=== PATIENT | female | born 1940 | race Caucasian/White ===

== ENCOUNTER 2020-04-16 12:29 | Outpatient (CLI) | payer MEDICARE, SELFPAY ==
--- NOTE | ~2020-04-16 | XR_ITS ---
EXAMINATION: XR abdomen obstructive series DATE: 04/16/2020 12:59 INDICATION: Abdominal pain. History of obstruction. TECHNIQUE: Supine and upright views of the abdomen. FINDINGS: Comparison to 12/27/2018 The visualized lung parenchyma is normal.. There are dilated small bowel loops measuring up to 5 cm w ith decompressed colon. There are air-fluid levels in the small bowel. There are extensive atheroscle rotic changes. There is no free air. IMPRESSION: 1. Small bowel obstruction. Reviewed, dictated and finalized at location A. IMPRESSION: 1. Small bowel obstruction.
[2020-04-16 12:44] LABS: Basophils Absolute Auto 0.02 K/mm3 (0.00-0.10); Basophils Percent Auto 0.3 % (0.0-1.0); Eosinophils Absolute Auto 0.01 K/mm3 (0.02-0.50); Eosinophils Percent Auto 0.2 % (1.0-6.0); Hematocrit 43.3 % (35.0-42.0); Hemoglobin 14.6 g/dL (11.7-13.8); Immature Granulocyte Absolute 0.02 K/mm3 (0.00-0.00); Immature Granulocyte Percent A 0.3 % (0.0-0.0); Lymphocytes Absolute Auto 0.53 K/mm3 (1.10-4.50); Lymphocytes Percent Auto 8.6 % (18.0-42.0); Mean Corpuscular HGB Conc 33.7 g/dL (32.0-36.0); Mean Corpuscular Hemoglobin 34.4 pg (27.0-31.0); Mean Corpuscular Volume 102.1 fL (78.0-102.0); Mean Platelet Volume 10.3 fl (9.2-11.8); Monocytes Absolute Auto 0.19 K/mm3 (0.10-0.90); Monocytes Percent Auto 3.1 % (2.0-11.0); Neutrophils Absolute Auto 5.4 K/mm3 (1.7-7.2); Neutrophils Percent Auto 87.5 % (50.0-70.0); Platelet Count Result 250 K/mm3 (150-420); Red Blood Count 4.24 M/mm3 (4.20-5.40); Red Cell Distribution Width 12.7 % (11.6-14.4); White Blood Count 6.2 K/mm3 (4.8-10.8)
[2020-04-16 12:49] LABS: Add Urine Microscopic? YES; Appearance Urine Cloudy (Clear); Bilirubin Urine Negative (Negative); Blood Urine Negative (Negative); Color Urine Yellow (Yellow); Glucose Urine UA Negative (Negative); Ketones Urine Trace (Negative); Leukocyte Esterase Ur Negative LEU/UL (Negative); Nitrate Urine Negative (Negative); Protein Urine Negative (Negative); Specific Grav Ur 1.015 (1.010-1.020); Urobilinogen Urine 0.2 mg/dL (0.2-1.0)
[2020-04-16 12:55] LABS: Amorphous Sediment Urine Moderate; Bacteria Urine 3+ /hpf; RBC Urine 0-2 /hpf (0-2); Squamous Epithelial Cell Urine Few /hpf (Few); WBC Urine 0-3 /hpf (0-3)
[2020-04-16 13:19] LABS: Alanine Aminotransferase 18 U/L (14-59); Albumin Level 4.3 g/dL (3.4-5.0); Alkaline Phosphatase 97 U/L (46-116); Amylase 83 U/L (25-115); Anion Gap 10.2 mmol/L (7-16); Aspartate Amino Transferase 22 U/L (15-37); Bilirubin,Total 0.7 mg/dL (0.00-1.00); Blood Urea Nitrogen 20 mg/dL (7-18); Calcium 9.5 mg/dL (8.5-10.1); Carbon Dioxide 32 mmol/L (21-32); Chloride 96 mmol/L (98-108); Creatine Kinase 134 U/L (26-192); Estimated Glomerular Filt Rate 47; Glucose 131 mg/dL (70-99); Lipase 121 U/L (73-393); Osmolality Calculated 282 mOsm/kg (285-295); Potassium 4.2 mmol/L (3.5-5.1); Sodium 134 mmol/L (136-145); Total Protein 7.7 g/dL (6.4-8.2)
[2020-04-16 13:21] LABS: Troponin I < 0.02 ng/mL (0.00-0.056)
== END 2020-04-16 12:30 | disposition home or self-care (01) ==
PROVIDERS: PCP Internal Medicine; Visit Provider Internal Medicine
DX: R10.9 Unspecified abdominal pain (principal); I25.10 Atherosclerotic heart disease of native coronary artery without angina pectoris
CPT/HCPCS: 36415; 74019; 80053; 81001; 82150; 82550; 82553; 83690; 84484; 85025

== ENCOUNTER 2020-04-20 13:10 | Outpatient (CLI) | payer MEDICARE, SELFPAY ==
--- NOTE | ~2020-04-20 | XR_ITS ---
EXAMINATION: XR abdomen obstructive series DATE: 04/20/2020 13:36 INDICATION: Partial small bowel obstruction. TECHNIQUE: Upright and supine views of the abdomen were obtained. COMPARISON: 04/16/2020 FINDINGS: There are small bowel loops in the right abdomen which demonstrate air-fluid levels but hav e returned to normal in caliber. No dilated loops of bowel are evident. There is no free intraperiton eal gas. A large volume of stool is seen in the transverse and proximal descending colon. Calcified a therosclerosis is noted. The visualized lung bases are clear. 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 Phleboliths are seen in the pelvis. IMPRESSION: 1. No persistently dilated loops of bowel identified. Reviewed, dictated and finalized at location B.
== END 2020-04-20 13:11 | disposition home or self-care (01) ==
LOC: CHSIMG 13:13
PROVIDERS: PCP Internal Medicine; Visit Provider Internal Medicine
DX: K56.600 Partial intestinal obstruction, unspecified as to cause (principal); Z51.89 Encounter for other specified aftercare
CPT/HCPCS: 74019

== ENCOUNTER 2021-05-11 19:32 | Emergency (ER) | payer MEDICARE, SELFPAY | END 2021-05-11 19:35 | disposition left against medical advice (07) | PROVIDERS: Emergency Provider Emergency Medicine; PCP Internal Medicine | DX: Z53.8 Procedure and treatment not carried out for other reasons (principal) | CPT/HCPCS: 99199 ==

== ENCOUNTER 2021-08-04 09:19 | Emergency (ER) | payer MEDICARE, SELFPAY ==
--- NOTE | ~2021-08-04 | CT_ITS ---
EXAMINATION: CT brain wo con INDICATION: Transient alteration of awareness COMPARISON: None TECHNIQUE: Standard unenhanced head CT. The dose-length product (DLP) was 605.33 mGy-cm. The mA was a djusted according to patient size. Iterative reconstruction technique was employed. FINDINGS: There is no acute intraparenchymal hemorrhage. No evidence of mass lesion. No evidence of a cute infarction. There is mild periventricular and subcortical hypodensity probably related to small vessel ischemic disease. There is mild prominence of the sulci and ventricles related to cerebral atr ophy. Intracranial calcified cerebral atherosclerosis is noted. There are no extra-axial collections. There is no mass effect or midline shift. Changes in the left lobe are likely from ocular lens surge ry. Hyperdensity in the right globe is consistent with injected material. There is mild mucosal thick ening of the paranasal sinuses. IMPRESSION: 1. No acute intracranial abnormality. 2. Age related findings. Reviewed, dictated and finalized at location A. ELET MAKER NOVELTY
--- NOTE | ~2021-08-04 | CT_ITS ---
EXAMINATION: CTA chest PE protocol DATE: 08/04/2021 12:04 INDICATION: Transient alteration of awareness TECHNIQUE: Computed tomography angiography (CTA) of the chest was performed with 100 mL Omnipaque-350 intravenous contrast timed to evaluate the pulmonary arteries. Coronal maximum intensity projection 3D-reconstructions were created by the technologist. The dose-length product (DLP) was 292.73 mGy-cm. Automated exposure control and iterative reconstruction technique were employed. COMPARISON: 12/15/2018 FINDINGS: The pulmonary arteries are well-opacified. No pulmonary embolism is identified. There is mi ld dependent atelectasis. No pleural effusion or pneumothorax is identified. There is fusiform enlarg ement of the ascending aorta which measures 4.2 cm at the level of the main pulmonary artery. Cardiom egaly is noted. There are no pathologically enlarged thoracic lymph nodes. There is moderate thoracic spondylosis. There are changes of coronary artery bypass grafting. A stable 1.4 cm left adrenal mas s is consistent with an adenoma. IMPRESSION: 1. No pulmonary embolism or acute cardiopulmonary abnormality. 2. Cardiomegaly. 3. Fusiform enlargement of the ascending aorta measuring up to 4.2 cm. Reviewed, dictated and finalized at location A. NCT BUSINESS INSTRUCTOR
--- NOTE | ~2021-08-04 | CT_ITS ---
EXAMINATION: CT cervical spine wo con DATE: 08/04/2021 10:01 INDICATION: Neck pain TECHNIQUE: Computed tomography (CT) of the cervical spine was performed without intravenous contrast. The dose-length product (DLP) was 222.37 mGy-cm. Automated exposure control and iterative reconstruc tion technique were employed. COMPARISON: 03/27/2015 FINDINGS: There are changes of posterior fusion from C1 through C5 and anterior fusion at C6-7. There is a chronic C3 fracture. No acute fracture is identified. The odontoid is intact. The prevertebral soft tissues are normal. IMPRESSION: 1. Surgical changes and old C3 fracture without acute findings. Reviewed, dictated and finalized at location A. INUITY MANAGER
--- NOTE | ~2021-08-04 | XR_ITS ---
EXAMINATION: XR chest 1V portable INDICATION: Transient alteration of awareness TECHNIQUE: Portable AP chest at 0938 hours COMPARISON: 12/18/2018 FINDINGS: Cardiomegaly is noted. Median sternotomy wires and mediastinal surgical clips are seen, lik nannette from prior coronary artery bypass grafting. The lungs are free of acute opacities. There is no pl eural effusion or pneumothorax. There are partially imaged surgical changes in the cervical spine. IMPRESSION: 1. No acute cardiopulmonary abnormality. Reviewed, dictated and finalized at location A. ENT FINANCE ADVISOR
[2021-08-04 09:24] VITALS: BP 159/87; PULSE 48; RESP 16
[2021-08-04 09:27] VITALS: BP 159/87; PULSE 52; RESP 18; TEMP 36.4; O2SAT 98
[2021-08-04 09:31] VITALS: BP 169/83; PULSE 48; RESP 16
--- NOTE | 2021-08-04 09:31 | ECG_ITS ---
Measurements Intervals [place] Rate: 47 P: 0 TX: 151 QRS: 5 QRSD: 62 T: 56 QT: 389 QTc: 347 Interpretive Statements SINUS BRADYCARDIA WITH MARKED SINUS ARRHYTHMIA ANTEROSEPTAL INFARCT, AGE INDETERMINATE BASELINE ARTIFACT- I, II, III, AVR, AVL, AVF ABNORMAL ECG Electronically Signed On 08-05-2021 8:42:04 LEAD FIRE PROTECTION ENGINEER by Sathish Hawthorne D.O.
[2021-08-04] MEDS: SODIUM CHLORIDE 0.9% IV 500 ML 999 ML IV CONT (09:33)
[2021-08-04 09:56] LABS: Basophils Percent Auto 0.3 % (0.2-1.2); Eosinophils Percent Auto 0.3 % (0-4.4); Hemoglobin 13.6 g/dL (12.0-15.0); Immature Granulocyte Absolute 0.02 K/mm3 (0.00-0.031); Immature Granulocyte Percent A 0.3 % (0-0.5); Lymphocytes Absolute Auto 0.78 K/mm3 (0.9-3.2); Lymphocytes Percent Auto 12.2 % (18.3-44.2); Mean Corpuscular HGB Conc 32.4 g/dl (32-36); Mean Corpuscular Hemoglobin 34.2 pg (26-34); Mean Corpuscular Volume 105.5 fl (80-100); Mean Platelet Volume 10.9 fl (7.4-10.4); Monocytes Absolute Auto 0.6 K/mm3 (0.1-0.6); Monocytes Percent Auto 9.3 % (2.6-8.5); Neutrophils Absolute Auto 4.9 K/mm3 (1.3-6.7); Neutrophils Percent Auto 77.6 % (45.5-73.1); Platelet Count Result 197 k/mm3 (150-375); Red Blood Count 3.98 M/mm3 (4.2-5.4); Red Cell Distribution Width 13.4 % (11.5-14.5); White Blood Count 6.4 K/mm3 (4.5-10.0)
[2021-08-04 10:06] LABS: Anion Gap 5 mmol/L (8-16); Blood Urea Nitrogen 21 mg/dL (7-17); Calcium 9.9 mg/dL (8.4-10.2); Carbon Dioxide 32 mmol/L (22-30); Chloride 102 mmol/L (98-107); Estimated CRCL calculation 48 ml/min; Estimated Glomerular Filt Rate > 60; Glucose 94 mg/dL (65-110); Potassium 4.3 mmol/L (3.4-5.0); Sodium 139 mmol/L (137-145)
[2021-08-04 10:09] LABS: INR 0.9; Prothrombin Time 12.5 Seconds (11.1-14.7)
[2021-08-04 10:10] LABS: Partial Thromboplastin Time 26.8 SECONDS (22.3-36.8)
[2021-08-04 10:52] LABS: Add Urine Microscopic? YES; Appearance Urine Cloudy (Clear); Bilirubin Urine Negative (Negative); Blood Urine Negative (Negative); Color Urine Straw (Yellow); Glucose Urine UA Negative (Negative); Ketones Urine Negative (Negative); Leukocyte Esterase Ur Trace LEU/UL (Negative); Mucus Urine Rare /lpf; Nitrate Urine Negative (Negative); Protein Urine Negative (Negative); RBC Urine 0-2 /hpf (0-2); Specific Grav Ur 1.009 (1.001-1.035); Squamous Epithelial Cell Urine Few /hpf (Few); Urobilinogen Urine Negative mg/dL (<2.0)
--- NOTE | 2021-08-04 10:55 | ED.SYNCOPE ---
HPI - Syncope General Chief Complaint: Syncope Stated Complaint: SYNCOPE, ARPITA Time Seen by Provider: 08/04/21 09:47 Source: patient History of Present Illness HPI narrative: Patient presents with syncope. Patient ports she was sitting down had an episode of nausea got up to get it you to drink and then felt lightheaded and fell to the ground. She did report having recent ocular procedure and is on Tylenol with codeine. She not take the medication this morning. Reports on arrival to the ER she is feeling much improved and nothing is bothering her. She had a chest pain or shortness of breath prior to the event. Denies any current chest pain dizziness nausea vomiting. Related Data Home Medications Medication Instructions Recorded Confirmed aspirin 81 mg PO DAILY 08/04/21 atorvastatin 40 mg PO DAILY 08/04/21 carvedilol 3.125 mg PO BID 08/04/21 cholecalciferol (vitamin D3) 25 mcg PO DAILY 08/04/21 [Vitamin D3] clopidogrel 75 mg PO BID 08/04/21 famotidine 20 mg PO BID 08/04/21 levothyroxine [L-Thyroxine] 75 mcg PO DAILY 08/04/21 pantoprazole 40 mg PO QAM 08/04/21 polyethylene glycol 3350 [Miralax] 17 g PO DAILY 08/04/21 spironolactone 25 mg PO DAILY 08/04/21 tramadol 50 mg PO PRN 08/04/21 vitamin B complex [B 1 tablet PO DAILY 08/04/21 Complex-Vitamin B12] Allergies Allergy/AdvReac Type Severity Reaction Status Date / Time No Known Allergies Allergy Unverified 08/04/21 09:32 Review of Systems Review of Systems: CONSTITUTIONAL: Denies fever, chills, or sweats. EYES: Denies visual changes, redness, or discharge. ENT: Denies rhinorrhea, congestion, sore throat, or otalgia. CARDIOVASCULAR: Denies chest pain, palpitations, or edema. RESPIRATORY: Denies cough or dyspnea. GASTROINTESTINAL: Denies abdominal pain, nausea, vomiting, or diarrhea. GENITOURINARY: Denies dysuria or hematuria. SKIN: Denies rash or itching. MUSCULOSKELETAL: Denies back pain, joint pain, or myalgia. NEUROLOGIC: Denies headache, numbness, dizziness, or weakness. PSYCHIATRIC: Denies anxiety or depression. All systems reviewed & are unremarkable except as noted in HPI and below PMFSH Past Medical History Medical History (Updated 08/04/21 @ 13:14 by Prieto Mcintosh MD) Hypertension Family History Family History Father Hypertension Mother Hypertension Family history of malignant neoplasm of brain Sibling Family history of malignant neoplasm Social History Social History Smoking status: Former smoker Smoking end date: 09/21/11 Exam Narrative: GENERAL: Well-appearing, well-nourished, and in no acute distress. HEAD: Normocephalic, atraumatic. EYES: PERRLA and EOMI. ENT: Nares clear, no rhinorrhea or epistaxis. Mucous membranes moist. NECK: Supple. No masses. No JVD CHEST: Clear to auscultation. No respiratory distress. No wheezes rales or rhonchi HEART: Regular rate and rhythm. No murmur heard. Normal peripheral pulses. ABDOMEN: Soft, nontender, nondistended, normal active bowel sounds. EXTREMITIES: Normal range of motion. No edema. SKIN: Warm, dry, no rash. NEURO: No focal deficits. Alert and oriented x3. PSYCH: Normal mood and affect. Course Reevaluation(s) Reevaluation #1: Patient reports feeling much improved she ambulated without difficulty patient requesting to go home Date: 08/04/21 Time: 13:07 Vital Signs Vital signs: Vital Signs Pulse Rate 48 L 08/04/21 09:24 Respiratory Rate 16 08/04/21 09:24 Blood Pressure 159/87 H 08/04/21 09:24 Temperature 36.4 C L 08/04/21 09:27 Pulse Rate 69 08/04/21 12:30 Respiratory Rate 16 08/04/21 12:30 Blood Pressure 148/58 H 08/04/21 12:30 Pulse Oximetry 98 08/04/21 12:30 MDM - Syncope MDM Narrative Medical decision making narrative: H&P as above, vs initially with bradycardia resolved without intervention, pt looks cli
[2021-08-04 11:18] LABS: Alanine Aminotransferase 14 U/L (4-35); Albumin Level 4.3 g/dL (3.5-5.1); Alkaline Phosphatase 81 U/L (38-126); Aspartate Amino Transferase 23 U/L (14-36); Bilirubin,Total 0.5 mg/dL (0.2-1.3)
[2021-08-04 11:31] LABS: Troponin I < 0.012 ng/mL (0.000-0.034)
[2021-08-04 11:45] VITALS: BP 157/91; PULSE 66; RESP 13
[2021-08-04 11:46] VITALS: PULSE 56
[2021-08-04 12:30] VITALS: BP 148/58; PULSE 69; RESP 16; O2SAT 98
== END 2021-08-04 13:32 | disposition home or self-care (01) ==
PROVIDERS: Emergency Provider Emergency Medicine; PCP Internal Medicine
DX: R55 Syncope and collapse (principal); I10 Essential (primary) hypertension; Z79.82 Long term (current) use of aspirin; Z87.891 Personal history of nicotine dependence; I51.7 Cardiomegaly; R00.1 Bradycardia, unspecified; R94.31 Abnormal electrocardiogram [ECG] [EKG]; W18.39XA Other fall on same level, initial encounter
CPT/HCPCS: 36415; 70450; 71045; 71275; 72125; 80048; 80076; 81001; 83735; 84484; 85025; 85610; 85730; 93005; 96360; 99284; J7040; Q9967

== ENCOUNTER 2022-12-09 10:10 | Outpatient (CLI) | payer MEDICARE, SELFPAY ==
--- NOTE | ~2022-12-09 | CT_ITS ---
EXAMINATION: CTA chest PE protocol DATE: 12/09/2022 12:12 INDICATION: Shortness of breath TECHNIQUE: Computed tomography angiography (CTA) of the chest was performed with 100 mL Omnipaque-350 intravenous contrast timed to evaluate the pulmonary arteries. Coronal maximum intensity projection 3D-reconstructions were created by the technologist. The dose-length product (DLP) was 223.22 mGy-cm. Automated exposure control and iterative reconstruction technique were employed. COMPARISON: 08/04/2020 FINDINGS: The pulmonary arteries are well-opacified. No pulmonary embolism is identified. The lungs a re free of acute opacities. No pleural effusion or pneumothorax. There is subsegmental atelectasis in the lower lobes. A chronic 2 mm nodule of the right lung apex is consistent with old granulomatous d isease. There are changes of coronary artery bypass grafting. Healed left-sided rib fractures are not ed. Stones are present in the gallbladder. There is severe thoracic spondylosis. There are partially imaged changes of anterior fusion in the lower cervical spine. There is severe atherosclerosis of the visualized upper abdomen. IMPRESSION: 1. No pulmonary embolism or acute cardiopulmonary abnormality. Reviewed, dictated and finalized at location L.
--- NOTE | ~2022-12-09 | XR_ITS ---
EXAMINATION: XR chest 2V DATE: 12/09/2022 10:46 INDICATION: Shortness of breath TECHNIQUE: PA and lateral views of the chest are obtained. COMPARISON: 08/04/2021 FINDINGS: The lungs are free of acute opacities. No pleural effusion or pneumothorax. The cardiomedia stinal silhouette is normal. There is moderate thoracic spondylosis. Median sternotomy wires and medi astinal surgical clips are seen, likely from prior coronary artery bypass grafting. Changes of anteri or fusion are noted in the lower cervical spine. IMPRESSION: 1. No acute cardiopulmonary abnormality. Reviewed, dictated and finalized at location L.
[2022-12-09 10:30] LABS: Basophils Absolute Auto 0.03 K/mm3 (0.00-0.10); Basophils Percent Auto 0.5 % (0.0-1.0); Eosinophils Absolute Auto 0.03 K/mm3 (0.02-0.50); Eosinophils Percent Auto 0.5 % (1.0-6.0); Hemoglobin 12.3 g/dL (11.7-13.8); Immature Granulocyte Absolute 0.03 K/mm3 (0.00-0.00); Immature Granulocyte Percent A 0.5 % (0.0-0.0); Lymphocytes Percent Auto 13.4 % (18.0-42.0); Mean Corpuscular HGB Conc 31.5 g/dL (32.0-36.0); Mean Corpuscular Hemoglobin 30.5 pg (27.0-31.0); Mean Corpuscular Volume 96.8 fL (78.0-102.0); Mean Platelet Volume 10.1 fl (9.2-11.8); Monocytes Absolute Auto 0.33 K/mm3 (0.10-0.90); Monocytes Percent Auto 5.5 % (2.0-11.0); Neutrophils Absolute Auto 4.7 K/mm3 (1.7-7.2); Neutrophils Percent Auto 79.6 % (50.0-70.0); Platelet Count Result 298 K/mm3 (150-420); Red Blood Count 4.03 M/mm3 (4.20-5.40); Red Cell Distribution Width 14.9 % (11.6-14.4)
[2022-12-09 10:35] LABS: Appearance Urine Clear (Clear); Bilirubin Urine Negative (Negative); Blood Urine 2+ (Negative); Color Urine Yellow (Yellow); Glucose Urine UA Negative (Negative); Ketones Urine Trace (Negative); Leukocyte Esterase Ur Negative (Negative); Nitrate Urine Negative (Negative); Protein Urine Trace (Negative); Specific Grav Ur 1.015 (1.010-1.020); Urobilinogen Urine 0.2 mg/dL (0.2-1.0)
[2022-12-09 10:41] LABS: Add Urine Microscopic? NO; Bacteria Urine None seen /hpf; RBC Urine 0-2 /hpf (0-2); Squamous Epithelial Cell Urine Occasional /hpf (Few); WBC Urine None seen /hpf (0-3)
[2022-12-09 10:47] LABS: Alanine Aminotransferase 17 U/L (14-59); Albumin Level 3.9 g/dL (3.4-5.0); Alkaline Phosphatase 112 U/L (46-116); Anion Gap 7 mmol/L (8-16); Aspartate Amino Transferase 15 U/L (15-37); Bilirubin,Total 0.5 mg/dL (0.00-1.00); Blood Urea Nitrogen 26 mg/dL (7-18); Calcium 9.9 mg/dL (8.5-10.1); Carbon Dioxide 31 mmol/L (21-32); Chloride 103 mmol/L (98-108); Estimated Glomerular Filt Rate 49; Glucose 120 mg/dL (70-99); Osmolality Calculated 297 mOsm/kg (285-295); Potassium 4.6 mmol/L (3.5-5.1); Sodium 141 mmol/L (136-145); Total Protein 7.7 g/dL (6.4-8.2)
--- NOTE | 2022-12-09 10:53 | ECG_ITS ---
Rate 82 MA 134 QRSd 75 QT 365 QTc 428 --Porter-- P 74 QRS 72 T 68 SINUS RHYTHM FREQUENT ATRIAL PREMATURE COMPLEXES INCOMPLETE RIGHT BUNDLE BRANCH BLOCK ANTERIOR INFARCT, AGE INDETERMINATE BASELINE ARTIFACT- I, II, III, V1 ABNORMAL ECG COMPARED TO ECG 08/04/2021 09:26:59 SINUS RHYTHM NOW PRESENT Electronically Signed On 12-09-2022 11:51:43 CDT by Sathish DE LA CRUZ
[2022-12-09 10:54] LABS: D Dimer 0.81 mg/L (0.19-0.50)
== END 2022-12-09 10:11 | disposition home or self-care (01) ==
PROVIDERS: PCP Internal Medicine; Visit Provider Nurse Practitioner Family
DX: R06.02 Shortness of breath (principal); J06.9 Acute upper respiratory infection, unspecified; I49.9 Cardiac arrhythmia, unspecified; R97.8 Other abnormal tumor markers
CPT/HCPCS: 36415; 71046; 71275; 80053; 81003; 85025; 85380; 87086; 87088; 93005; Q9967

== ENCOUNTER 2023-04-26 08:18 | Emergency (ER) | payer MEDICARE, SELFPAY ==
[2023-04-26] VITALS (32 sets, daily range): BP systolic 116–207; BP diastolic 64–119; PULSE 40–77; RESP 11–21; TEMP 36.4–36.6; O2SAT 98–100
--- NOTE | ~2023-04-26 | CT_ITS ---
EXAMINATION: CT brain wo con DATE: 04/26/2023 08:56 INDICATION: Increasing weakness TECHNIQUE: Computed tomography (CT) of the head was performed without intravenous contrast. Sagittal and coronal reconstructions were performed. The mA was adjusted according to patient size. Iterative reconstruction technique was employed. The dose-length product was 605.33 mGy-cm. COMPARISON: head CT dated 08/04/2021 FINDINGS: No acute intracranial hemorrhage, acute infarction or abnormal extra axial fluid collection. There is mild scattered white matter hypoattenuation consistent with chronic small vessel ischemic disease. S ymmetric prominence of the sulci consistent with mild age-appropriate diffuse cerebral volume loss. V entricles are normal and symmetric. No mass/mass effect. Changes of bilateral intraocular lens replac ement. The orbits, paranasal sinuses and mastoid air cells are normal. Intracranial calcified cerebra l atherosclerosis is noted. IMPRESSION: 1. No acute intracranial process. 2. Age-related changes including mild diffuse volume loss and mild scattered white matter hypoattenua tion consistent with chronic small vessel ischemic disease. Reviewed, dictated and finalized at location A. IMPRESSION: 1. No acute intracranial process. 2. Age-related changes including mild diffuse volume loss and mild scattered wh ite matter hypoattenuation consistent with chronic small vessel ischemic diseas e.
--- NOTE | ~2023-04-26 | CT_ITS ---
EXAMINATION: CT abdomen pelvis wo con DATE: 04/26/2023 08:57 INDICATION: Lower abdominal pain TECHNIQUE: Computed tomography (CT) of the abdomen and pelvis was performed without intravenous contr ast. Automated exposure control and iterative reconstruction technique were employed. The dose-length product was 290.46 mGy-cm. COMPARISON: 12/15/2018 FINDINGS: Unchanged discoid atelectasis/scarring in the right lower lobe. Mild cardiomegaly. Atherosclerotic co ronary artery calcification. No pericardial or pleural effusion. Small sliding-type hiatal hernia. Se veral small gallstones in the dependent aspect of the otherwise normal-appearing gallbladder. Liver, spleen, pancreas and right adrenal gland are normal. No significant interval change in a 1.7 cm low-a ttenuation left adrenal adenoma. Atherosclerotic calcifications at the bilateral renal laurie. Again se en is intestinal malrotation with the colon primarily in the left abdomen and small bowel primarily i n the right abdomen. There is a recurrent small bowel obstruction with multiple dilated loops of smal l bowel measuring up to 4.1 cm in maximal diameter extending to a transition point with small bowel p seudofeces sign in the anterior lower pelvis. Bladder and uterus are unremarkable. Couple left adnexa l cysts the larger measuring 3.0 cm in maximal diameter. There is calcified atherosclerosis of the ao rta and many of the other arteries. No free intraperitoneal gas or fluid. No pathologically enlarged abdominal or pelvic lymphadenopathy. Moderate lumbar and lower thoracic spondylosis. IMPRESSION: 1. Small bowel obstruction with transition point in the lower pelvis. 2. Intestinal malrotation. 3. Cholelithiasis. 4. Cardiomegaly. Reviewed, dictated and finalized at location A.
--- NOTE | ~2023-04-26 | XR_ITS ---
EXAMINATION: XR_KUBGTUBINS_CR DATE: 04/26/2023 10:31 INDICATION: Nasogastric tube placement TECHNIQUE: Portable AP upright view of the upper abdomen was obtained for assessment of nasogastric t ube position. COMPARISON: CT dated 04/26/2023 FINDINGS: Nasogastric tube tip in proximal side port in the body of the stomach. A few nondilated gas-filled lo ops of bowel in the visualized upper abdomen. Lung bases are clear. Cardiomegaly. Median sternotomy w ires and mediastinal surgical clips are seen, likely from prior coronary artery bypass grafting. IMPRESSION: 1. Nasogastric tube in the stomach. Reviewed, dictated and finalized at location A.
--- NOTE | 2023-04-26 08:20 | ECG_ITS ---
Measurements Intervals [place] Rate: 45 P: 62 ID: [id number] QRS: 59 QRSD: 78 T: 70 QT: 437 QTc: 380 Interpretive Statements SINUS BRADYCARDIA WITH OCCASIONAL SUPRAVENTRICULAR PREMATURE COMPLEXES POSSIBLE RIGHT VENTRICULAR CONDUCTION DELAY [RSR (QR) IN V1/V2] POOR R-WAVE PROGRESSION, CANNOT RULE OUT OLD ANTERIOR SEPTAL [place] COMPARED TO ECG 12/09/2022 10:53:28 SINUS BRADYCARDIA NOW PRESENT Electronically Signed On 04-26-2023 8:33:51 CDT by Kelsea Markham M.D.
--- NOTE | 2023-04-26 08:20 | ED.ABDPAIN ---
HPI - Abdominal Pain General Chief Complaint: Abdominal Pain Stated Complaint: abdominal pain Time Seen by Provider: 04/26/23 08:20 Source: patient and EMS Mode of arrival: EMS Limitations: no limitations History of Present Illness HPI narrative: patient is an 82-year-old full code female with abdominal pain for 1 day. She called EMS after near-syncope event. She was having abdominal pain and had to sit down because she was feeling faint. Associated nausea without vomiting. The pain is mid epigastric and lower abdomen centrally. Patient has open heart surgery with coronary bypass x5 11 years ago. No chest pain or shortness of breath. Patient appears very pale. 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 MD elicited complaint: abdominal pain Onset (ago): day(s) (1) Pain Consistency: constant Location: epigastric, periumbilical and suprapubic Severity: moderate Pain scale (0-10): 5 Quality: sharp Radiation: none Migration to: no migration Exacerbating factors: nothing Relieving factors: nothing Associated symptoms: nausea Related Data Patient : No Home Medications Medication Instructions Recorded Confirmed aspirin 81 mg capsule 81 mg PO DAILY 08/04/21 04/26/23 atorvastatin 40 mg tablet 40 mg PO DAILY 08/04/21 04/26/23 carvedilol 3.125 mg tablet 3.125 mg PO BID 08/04/21 04/26/23 cholecalciferol (vitamin D3) 25 25 mcg PO DAILY 08/04/21 04/26/23 mcg (1,000 unit) capsule (Vitamin D3) clopidogrel 75 mg tablet 75 mg PO BID 08/04/21 04/26/23 famotidine 20 mg tablet 20 mg PO BID 08/04/21 04/26/23 levothyroxine 75 mcg tablet 75 mcg PO DAILY 08/04/21 04/26/23 pantoprazole 40 mg tablet,delayed 40 mg PO QAM 08/04/21 04/26/23 release spironolactone 25 mg tablet 25 mg PO DAILY 08/04/21 04/26/23 tramadol 50 mg tablet 50 mg PO PRN 08/04/21 04/26/23 vitamin B complex (B 1 tablet PO DAILY 08/04/21 04/26/23 Complex-Vitamin B12 tablet) Allergies Allergy/AdvReac Type Severity Reaction Status Date / Time morphine Allergy Anaphylaxis Verified 04/26/23 11:09 Review of Systems Review of Systems: All systems reviewed & are unremarkable except as noted in HPI and below Constitutional: Constitutional: Reports no additional constitutional complaints Eyes: Eyes: Reports no additional eye complaints ENT: Reports system reviewed and no additional complaints, except as documented Cardiovascular: Cardiovascular: Reports no additional cardiovascular complaints Respiratory: Respiratory: Reports no additional respiratory complaints Gastrointestinal: Gastrointestinal: Reports no additional gastrointestinal complaints Genitourinary: Genitourinary: Reports no additional female genitourinary complaints Musculoskeletal: Musculoskeletal: Reports no additional musculoskeletal complaints Integumentary/Breasts: Skin/Breast: Reports system reviewed and no additional complaints, except as docu Neurologic: Reports system reviewed and no additional complaints, except as documented Psychiatric: Psychiatric: Reports no additional psychiatric complaints Endocrine: Endocrine: Reports no additional endocrine complaints Hematologic/Lymphatic: Hematologic/Lymphatic: Reports no additional hematologic/lymphatic complaints Allergic/Immunologic: Allergic/Immunologic: Reports no additional allergic/immunologic complaints PMFSH Past Medical History Medical History Hypertension Family History Family History Father Hypertension Mother Hypertension Family history of malignant neoplasm of brain Sibling Family history of malignant neoplasm Social History Social History Smoking status: Former smoker Smoking end date: 09/21/11 Exam Const: General: healthy appearing Nutritional Appearance: well claudia
--- NOTE | 2023-04-26 08:30 | PC.NURSE ---
lab called for bloodwork
--- NOTE | 2023-04-26 08:35 | PC.NURSE ---
patient taken to CT
--- NOTE | 2023-04-26 09:02 | PC.NURSE ---
lab called for bloodwork.
[2023-04-26 09:46] LABS: Basophils Absolute Auto 0.01 K/mm3 (0.00-0.10); Basophils Percent Auto 0.2 % (0.0-1.0); Eosinophils Absolute Auto 0.04 K/mm3 (0.02-0.50); Eosinophils Percent Auto 0.7 % (1.0-6.0); Hematocrit 35.3 % (35.0-42.0); Hemoglobin 10.8 g/dL (11.7-13.8); Immature Granulocyte Absolute 0.01 K/mm3 (0.00-0.00); Immature Granulocyte Percent A 0.2 % (0.0-0.0); Lymphocytes Absolute Auto 0.58 K/mm3 (1.10-4.50); Lymphocytes Percent Auto 10.6 % (18.0-42.0); Mean Corpuscular HGB Conc 30.6 g/dL (32.0-36.0); Mean Corpuscular Hemoglobin 28.7 pg (27.0-31.0); Mean Corpuscular Volume 93.9 fL (78.0-102.0); Mean Platelet Volume 10.9 fl (9.2-11.8); Monocytes Absolute Auto 0.33 K/mm3 (0.10-0.90); Neutrophils Absolute Auto 4.5 K/mm3 (1.7-7.2); Neutrophils Percent Auto 82.3 % (50.0-70.0); Platelet Count Result 237 K/mm3 (150-420); Red Blood Count 3.76 M/mm3 (4.20-5.40); Red Cell Distribution Width 16.2 % (11.6-14.4); White Blood Count 5.5 K/mm3 (4.8-10.8)
[2023-04-26 09:53] LABS: Partial Thromboplastin Time 25.1 SEC (23.90-30.70); Prothrombin Time 10.6 Seconds (9.50-12.10)
[2023-04-26 09:57] LABS: Alanine Aminotransferase 22 U/L (14-59); Albumin Level 3.8 g/dL (3.4-5.0); Alkaline Phosphatase 102 U/L (46-116); Anion Gap 7 mmol/L (8-16); Aspartate Amino Transferase 12 U/L (15-37); Bilirubin,Total 0.4 mg/dL (0.00-1.00); Blood Urea Nitrogen 21 mg/dL (7-18); Calcium 9.2 mg/dL (8.5-10.1); Carbon Dioxide 30 mmol/L (21-32); Chloride 102 mmol/L (98-108); Estimated Glomerular Filt Rate 56; Glucose 107 mg/dL (70-99); Lactic Acid Reflex 1.2 mmol/L (0.4-2.0); Lipase 39 U/L (16-77); Osmolality Calculated 291 mOsm/kg (285-295); Potassium 4.4 mmol/L (3.5-5.1); Sodium 139 mmol/L (136-145); Troponin I 6.1 ng/L (0.00-60.4)
[2023-04-26] MEDS: SODIUM CHLORIDE 0.9% IV 1,000 ML 999 ML IV CONT (10:46)
[2023-04-26] MEDS: ONDANSETRON INJ 4 MG/2 ML VIAL IV PUSH (10:46)
[2023-04-26] MEDS: MORPHINE SULFATE (*CRX) 2 MG/ML INJ IV PUSH (10:46)
[2023-04-26] MEDS: diphenhydrAMINE HCl INJ 50 MG/ML VIAL (11:00)
[2023-04-26] MEDS: methylPREDNISolone SOD SUCC 125 MG VIAL (11:00)
--- NOTE | 2023-04-26 11:00 | PC.NURSE ---
After RN pushed morphine patient stated having itching above iv site and stating her throat felt like it was closing. patient was able to speak in full sentences and no drooling present, erp brought to bedside, and rn given verbal order to pull 125 IV solumedrol and 25mg iv benadryl to give for symptoms. will continue to monitor.
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
[2023-04-26] MEDS: fentaNYL CITRATE INJ (*CRX) 100 MCG/2 ML VIAL (12:08)
--- NOTE | 2023-04-26 12:08 | PC.NURSE ---
internet is now working, computers are slow, delay in transfer due to medication administration, [facility] running slow as well, patient is stable and will leave after medication given with ERP approval.
--- NOTE | 2023-05-02 12:32 | PC.NURSE ---
final blood cultures x2 reviewed. no growth after 5 days. no change in plan of care.
== END 2023-04-26 12:14 | disposition short-term general hospital (02) ==
PROVIDERS: Emergency Provider Emergency Medicine; PCP Internal Medicine
DX: K56.609 Unspecified intestinal obstruction, unspecified as to partial versus complete obstruction (principal); Q43.3 Congenital malformations of intestinal fixation; R00.1 Bradycardia, unspecified; I10 Essential (primary) hypertension; Z79.82 Long term (current) use of aspirin; Z87.891 Personal history of nicotine dependence
CPT/HCPCS: 36415; 70450; 74176; 80053; 83605; 83690; 83735; 84484; 85025; 85610; 85730; 87040; 93005; 96361; 96374; 96375; 99285; J1200; J2270; J2405; J2930; J3010; J7030

== ENCOUNTER → 2023-12-15 14:14 | Outpatient (REF) | payer MEDICARE, SELFPAY | LOC: ANHLAB 14:14 | PROVIDERS: PCP Internal Medicine; Visit Provider Plastic Surgery | DX: C44.219 Basal cell carcinoma of skin of left ear and external auricular canal (principal) | CPT/HCPCS: 88305 ==

== ENCOUNTER 2024-03-25 13:20 | Outpatient (CLI) | payer MEDICARE, SELFPAY ==
--- NOTE | ~2024-03-25 | US_ITS ---
EXAMINATION: US soft tissue UE LT DATE: 03/25/2024 13:41 INDICATION: Hematoma post left forearm injury TECHNIQUE: Multiple grayscale and Doppler ultrasound images of the region of concern at the left fore arm were obtained. COMPARISON: None FINDINGS: 2.1 x 1.0 x 0.4 cm ovoid very hypoechoic lesion in the subcutaneous tissues at the region of concern which could represent complex fluid collection such as a hematoma. There is however no evident tailor fitter ior acoustic enhancement and could not exclude a solid neoplasm such as a lipoma. The underlying musc ulature appears normal. IMPRESSION: 1. 2.1 x 1.0 x 0.4 cm ovoid very hypoechoic lesion at the region of concern clinically for complex fl uid collection such as hematoma or solid neoplasm such as a lipoma. Consider clinical follow-up and i f the palpable abnormality persists could consider MRI for definitive determination as clinically ind icated. Reviewed, dictated and finalized at location B. IMPRESSION: 1. 2.1 x 1.0 x 0.4 cm ovoid very hypoechoic lesion at the region of concern cli nically for complex fluid collection such as hematoma or solid neoplasm such as a lipoma. Consider clinical follow-up and if the palpable abnormality persists could consider MRI for definitive determination as clinically indicated.
== END 2024-03-25 13:21 | disposition home or self-care (01) ==
LOC: CHSIMG 13:22
PROVIDERS: PCP Internal Medicine; Visit Provider Nurse Practitioner Family
DX: R22.32 Localized swelling, mass and lump, left upper limb (principal)
CPT/HCPCS: 76882

== ENCOUNTER 2024-05-24 01:27 | Day surgery (SDC) | payer MEDICARE, SELFPAY ==
[2024-05-16 15:25] VITALS: BMI 22.0
--- NOTE | 2024-05-24 08:36 | SUR.PREOP ---
Pts. spouse called this morning stating they are concerned about results of prep. Earlier at around 0700 she had a dark brown very loose stool and then around 0800 had a home service consultant brown- tea colored very watery stool. Sorin Larsen RN relayed this message to Dr. Musa and he agrees patient is okay to come in a 0930 and have procedure providing the patient is not having close to solid stools. Pt and spouse deny this and will be here at 0930.
[2024-05-24 09:57] VITALS: BP 159/87; PULSE 54; RESP 16; TEMP 36.6; O2SAT 92
[2024-05-24] MEDS: LACTATED RINGERS 1,000 ML 150 ML IV CONT (10:26)
--- NOTE | 2024-05-24 11:01 | PM.IMHP ---
H&P: HPI History of Present Illness Date/Time: 05/24/24 11:01 Chief Complaint: iron deficiency anemia Narrative: this is an 83-year-old woman who presents for colonoscopy. She has recently been found to have iron deficiency anemia. She denies hematochezia or melena. She denies any family history of colon cancer. SHe has never had a colonoscopy before. Review of Systems Review of Systems: All systems reviewed & are unremarkable except as noted in HPI and below Constitutional: Constitutional: Denies chills, Denies fever(s), Denies headache(s) and Denies weight loss Eyes: Eyes: Denies change in vision ENT: Denies dizziness, Denies headache(s), Denies neck mass and Denies throat swelling Cardiovascular: Cardiovascular: Denies chest pain, Denies lightheadedness and Denies dyspnea Respiratory: Respiratory: Denies cough, Denies dyspnea and Denies wheezing Gastrointestinal: Gastrointestinal: Denies abdominal pain, Denies change in bowel habits, Denies nausea and Denies vomiting Genitourinary: Genitourinary: Denies hematuria and Denies dysuria Musculoskeletal: Musculoskeletal: Reports as per HPI Integumentary/Breasts: Skin/Breast: Reports as per HPI Neurologic: Denies dizziness and Denies headache(s) Allergic/Immunologic: Allergic/Immunologic: Denies throat swelling and Denies wheezing PMFSH Past Medical History Medical History Hypertension Family History Family History Father Hypertension Mother Hypertension Family history of malignant neoplasm of brain Sibling Family history of malignant neoplasm Social History Social History (Updated 12/22/23 @ 10:21 by Irais Olivo CMA) Smoking status: Former smoker Tobacco type: cigarettes Smoking end date: 09/21/11 Alcohol intake: current Substance use: never Substance use type: does not use Living arrangements: with family Spiritual care concerns: No Meds Home Medications and Allergies Home Medications Medication Instructions Recorded Confirmed Type aspirin 81 mg capsule 81 mg PO DAILY 08/04/21 05/24/24 History atorvastatin 40 mg tablet 40 mg PO DAILY 08/04/21 05/24/24 History carvedilol 3.125 mg tablet 3.125 mg PO BID 08/04/21 05/24/24 History cholecalciferol (vitamin D3) 25 25 mcg PO DAILY 08/04/21 05/24/24 History mcg (1,000 unit) capsule (Vitamin D3) clopidogrel 75 mg tablet 75 mg PO DAILY 08/04/21 05/24/24 History famotidine 20 mg tablet 20 mg PO BID 08/04/21 05/24/24 History levothyroxine 75 mcg tablet 75 mcg PO DAILY 08/04/21 05/24/24 History pantoprazole 40 mg tablet,delayed 40 mg PO QAM 08/04/21 05/24/24 History release spironolactone 25 mg tablet 25 mg PO DAILY 08/04/21 05/24/24 History tramadol 50 mg tablet 50 mg PO PRN PRN Pain 08/04/21 05/24/24 History acetaminophen 650 mg 650 mg PO Q8H 05/16/24 05/24/24 History tablet,extended release (Tylenol Arthritis Pain) mecobalamin (vitamin B12) 500 mcg 500 mcg PO DAILY 05/16/24 05/24/24 History chewable tablet polyethylene glycol 3350 17 17 g PO DAILY PRN Constipation 05/16/24 05/24/24 History gram/dose oral powder (Miralax) Allergies Allergy/AdvReac Type Severity Reaction Status Date / Time morphine Allergy Anaphylaxis Verified 05/24/24 09:52 Vital Signs Vital Signs - 24 hr 05/24/24 09:57 Temperature 36.6 C Pulse Rate 54 L Respiratory Rate 16 Blood Pressure 159/87 H Pulse Oximetry 92 Oxygen Delivery Room Air Exam Const: General: no acute distress and alert Orientation/consciousness: patient oriented x3 HENMT: Head: normocephalic and atraumatic Ears: hearing grossly normal bilaterally Face/Nose/Sinus: Normal nares present Mouth: Yes Normal oral and palatal mucosa present Eyes: Periorbital: periorbital findings normal Sclera: sclerae normal EOM: EOMs intact bilaterally Neck: Neck: normal visual inspection, no
--- NOTE | 2024-05-24 11:10 | WPDANESEPPF ---
Anes - Initial Pre Proc Eval Procedure: Operation Date: 05/24/24 11:00 Proposed Procedures p Colonoscopy - Guy Musa DO Date/Time: 05/24/24 11:10 Surgeon: Guy Musa DO Pre Op Diagnosis: Anemia Patient Data Age: 83 Gender: F Height: 1.63 m Weight: 58 kg Last Vital Signs Temp 97.9 F 05/24/24 09:57 Pulse 54 L 05/24/24 09:57 Resp 16 05/24/24 09:57 BP 159/87 H 05/24/24 09:57 Pulse Ox 92 05/24/24 09:57 O2 Del Method Room Air 05/24/24 09:57 Allergies Allergy/AdvReac Type Severity Reaction Status Date / Time morphine Allergy Anaphylaxis Verified 05/24/24 09:52 Home Medications Medication Instructions Recorded Confirmed Type aspirin 81 mg capsule 81 mg PO DAILY 08/04/21 05/24/24 History atorvastatin 40 mg tablet 40 mg PO DAILY 08/04/21 05/24/24 History carvedilol 3.125 mg tablet 3.125 mg PO BID 08/04/21 05/24/24 History cholecalciferol (vitamin D3) 25 25 mcg PO DAILY 08/04/21 05/24/24 History mcg (1,000 unit) capsule (Vitamin D3) clopidogrel 75 mg tablet 75 mg PO DAILY 08/04/21 05/24/24 History famotidine 20 mg tablet 20 mg PO BID 08/04/21 05/24/24 History levothyroxine 75 mcg tablet 75 mcg PO DAILY 08/04/21 05/24/24 History pantoprazole 40 mg tablet,delayed 40 mg PO QAM 08/04/21 05/24/24 History release spironolactone 25 mg tablet 25 mg PO DAILY 08/04/21 05/24/24 History tramadol 50 mg tablet 50 mg PO PRN PRN Pain 08/04/21 05/24/24 History acetaminophen 650 mg 650 mg PO Q8H 05/16/24 05/24/24 History tablet,extended release (Tylenol Arthritis Pain) mecobalamin (vitamin B12) 500 mcg 500 mcg PO DAILY 05/16/24 05/24/24 History chewable tablet polyethylene glycol 3350 17 17 g PO DAILY PRN Constipation 05/16/24 05/24/24 History gram/dose oral powder (Miralax) Patient hx anesthesia problems: none Family hx anesthesia problems: none Results Review: All pre-operative results and documents have been reviewed as part of the pre-operative evaluation. PMFSH Past Medical History Medical History Hypertension Family History Family History Father Hypertension Mother Hypertension Family history of malignant neoplasm of brain Sibling Family history of malignant neoplasm Social History Social History (Updated 12/22/23 @ 10:21 by Irais Olivo CMA) Smoking status: Former smoker Tobacco type: cigarettes Smoking end date: 09/21/11 Alcohol intake: current Substance use: never Substance use type: does not use Living arrangements: with family Spiritual care concerns: No Anes - Eval Final PreProcedure Day of Procedure 05/24/24 11:10 Patient weight: normal Heart: irregular rhythm Lungs: clear to auscultation Airway: Mallampati scale class III Neurological: alert and oriented Last oral intake: >/= 8 hours ASA classification: III Emergent: no Anesthetic plan: proceed Anesthesia type and monitoring: general GIVS and standard monitoring Results Review: All pre-operative results and documents have been reviewed as part of the pre-operative evaluation. Informed Consent: The patient's anesthetic plan and its attendant risks and benefits were discussed with the patient/family/POA. Questions were solicited and answers provided to the satisfaction of the patient/family/POA.
[2024-05-24 12:00] VITALS: BP 116/62; PULSE 55; RESP 20; O2SAT 98
[2024-05-24 12:10] VITALS: BP 153/95; PULSE 59; RESP 22; O2SAT 98
[2024-05-24 12:20] VITALS: BP 150/87; PULSE 62; RESP 21; O2SAT 98
== END 2024-05-24 12:34 | disposition home or self-care (01) ==
PROVIDERS: PCP Internal Medicine; Visit Provider Surgery
PROC: 0DJD8ZZ Inspection of Lower Intestinal Tract, Via Natural or Artificial Opening Endoscopic (ICD-10-PCS; CPT 45378; principal; 2024-05-24 11:00)
DX: D50.9 Iron deficiency anemia, unspecified (principal); D12.5 Benign neoplasm of sigmoid colon; I10 Essential (primary) hypertension; Z79.82 Long term (current) use of aspirin; Z79.02 Long term (current) use of antithrombotics/antiplatelets; Z87.891 Personal history of nicotine dependence
CPT/HCPCS: 45385; 88305; J2704; J7120

== ENCOUNTER 2024-06-13 13:15 | Outpatient (CLI) | payer MEDICARE, SELFPAY ==
--- NOTE | ~2024-06-13 | XR_ITS ---
XR hand RT min 3V Ordering provider: Phil Garcia MD History: . right hand pain ATTN [facility] JOINT . Comparison: December 28, 2015 FINDINGS: BONES: No acute fracture or dislocation. JOINT SPACES: Scaphotrapezial osteoarthritic changes. First carpometacarpal joint osteoarthritic neri ges. Clinical chondrocalcinosis in the TFC. Narrowing of the distal interphalangeal joints. SOFT TISSUES: Normal. IMPRESSION: No acute osseous abnormality right hand. Polyarticular osteoarthritic changes. Chondrocalcinosis. Reviewed, dictated and finalized at location A.
[2024-06-13 13:41] LABS: Hematocrit 41.8 % (35.0-42.0); Hemoglobin 13.7 g/dL (11.7-13.8); Mean Corpuscular HGB Conc 32.8 g/dL (32-36); Mean Corpuscular Hemoglobin 34.6 pg (27.0-31.0); Mean Corpuscular Volume 105.6 fL (78.0-102.0); Mean Platelet Volume 10.2 fl (9.2-11.8); Platelet Count Result 213 K/mm3 (150-420); Red Blood Count 3.96 M/mm3 (4.20-5.40); Red Cell Distribution Width 14.5 % (11.6-14.4); White Blood Count 3.6 K/mm3 (4.8-10.8)
[2024-06-13 14:16] LABS: Band Neutrophils Percent 0 % (0-6); Eosinophils Absolute Manual 0.14 K/mm3 (0.02-0.50); Eosinophils Percent Manual 4 % (1-6); Lymphocytes Absolute Manual 1.04 K/mm3 (1.1-4.5); Lymphocytes Percent Manual 29 % (18-44); Monocytes Absolute Manual 0.21 K/mm3 (0.1-0.90); Monocytes Percent Manual 6 % (3-9); Neutrophils Absolute Manual 2.19 K/mm3 (1.7-7.2); Neutrophils Percent Manual 61 % (46-73); Platelet Estimate Adequate (Adequate); Total Cells Counted 100
[2024-06-13 14:47] LABS: Anion Gap 6 mmol/L (4-12); Blood Urea Nitrogen 24 mg/dL (7-18); Carbon Dioxide 34 mmol/L (21-32); Chloride 99 mmol/L (98-108); Estimated Glomerular Filt Rate 47; Glucose 90 mg/dL (70-99); Potassium 4.3 mmol/L (3.5-5.1); Sodium 139 mmol/L (136-145)
[2024-06-13 14:48] LABS: Alanine Aminotransferase 21 U/L (14-59); Albumin Level 4.2 g/dL (3.4-5.0); Alkaline Phosphatase 109 U/L (46-116); Aspartate Amino Transferase 18 U/L (15-37); Bilirubin,Total 0.4 mg/dL (0.00-1.00); Calcium 9.6 mg/dL (8.5-10.1); Cholesterol 172 mg/dL (0-200); Ferritin 37 ng/mL (8-252); HDL Direct 70 mg/dL (40-60); Iron 69 ug/dL (50-170); LDL Cholesterol Calculated 91 mg/dL (<130); Osmolality Calculated 292 mOsm/kg (285-295); Percent Iron Saturation 18 % (12-57); Thyroid Stimulating Hormone 1.46 uIU/mL (0.36-3.74); Total Protein 7.1 g/dL (6.4-8.2); Triglycerides 54 mg/dL (0-150)
[2024-06-13 15:04] LABS: Add Urine Microscopic? YES; Appearance Urine Sl Cloudy (Clear); Bilirubin Urine Negative (Negative); Blood Urine Negative (Negative); Color Urine Light Yellow (Yellow); Glucose Urine UA Negative (Negative); Ketones Urine Negative (Negative); Leukocyte Esterase Ur Trace (Negative); Nitrate Urine Positive (Negative); Protein Urine Negative (Negative); Specific Grav Ur 1.015 (1.010-1.020); Urobilinogen Urine 0.2 mg/dL (0.2-1.0)
[2024-06-13 15:09] LABS: RBC Urine None seen /hpf (0-2)
[2024-06-13 15:10] LABS: Bacteria Urine 4+ /hpf; Squamous Epithelial Cell Urine Few /hpf (Few)
== END 2024-06-13 13:16 | disposition home or self-care (01) ==
LOC: CHSLAB 13:17
PROVIDERS: PCP Internal Medicine; Visit Provider Internal Medicine
DX: D50.9 Iron deficiency anemia, unspecified (principal); I25.10 Atherosclerotic heart disease of native coronary artery without angina pectoris; D72.819 Decreased white blood cell count, unspecified; M79.641 Pain in right hand; M11.241 Other chondrocalcinosis, right hand; E03.9 Hypothyroidism, unspecified; F10.20 Alcohol dependence, uncomplicated
CPT/HCPCS: 36415; 73130; 80053; 80061; 80321; 81001; 82728; 83540; 83550; 84443; 85025; G0480

== ENCOUNTER 2024-10-05 15:07 | Emergency (ER) | payer MEDICARE, SELFPAY ==
--- NOTE | ~2024-10-05 | XR_ITS ---
EXAMINATION: XR abdomen/kub 1V DATE: 10/05/2024 15:59 INDICATION: Chest patient TECHNIQUE: A supine view of the abdomen on 2 radiographs was obtained. COMPARISON: CT dated 04/26/2023 FINDINGS: Heart pole of stool measuring 9 cm diameter at the rectum consistent with constipation with fecal imp action. There is moderate amount of gas and stool throughout the more proximal colon. No dilated loop s of gas-filled small bowel to suggest obstruction. Visualized lower lungs are clear. Heart size norm al with change of prior mediastinal and coronary artery bypass grafting. Scattered atherosclerotic ca lcifications of the abdomen and pelvis. Moderate lumbar and lower thoracic spondylosis. IMPRESSION: 1. 9 cm ball of stool at the rectum consistent with constipation with fecal impaction. Reviewed, dictated and finalized at location B. T POSITIONER IMPRESSION: 1. 9 cm ball of stool at the rectum consistent with constipation with fecal imp action.
[2024-10-05 15:07] VITALS: BP 158/99; PULSE 68; RESP 16; TEMP 36.7; O2SAT 98
--- NOTE | 2024-10-05 15:21 | ED_ITS ---
HPI - Abdominal Pain General Chief Complaint: Abdominal Pain Stated Complaint: ABD PAIN Time Seen by Provider: 10/05/24 15:21 Source: patient Mode of arrival: ambulatory Limitations: no limitations History of Present Illness HPI narrative: [age] year old female with a history hypertension, hypothyroidism, dyslipidemia, CAD status post CABG, right carotid stenosis status post stent, small-bowel obstructions status post surgery, status post colostomy takedown presents to the ED with a 3 day history of -- constipation. This patient is passing small pellets of stool. -- Developed abdominal pain lunch and after taking MiraLax. Patient had colonoscopy and was noted to have a sigmoid polyp in May of 2024. MD elicited complaint: abdominal pain Pertinent past history: constipation and myocardial infarction Onset (ago): day(s) ( Three days) Pain Consistency: intermittent Location: diffuse Severity: moderate Quality: cramping Radiation: none Migration to: no migration Exacerbating factors: nothing Relieving factors: nothing Associated symptoms: denies other symptoms and constipation Related Data Home Medications ?Medication ?Instructions ?Recorded ?Confirmed ?Last Taken ?Type aspirin 81 mg capsule 81 mg PO DAILY 08/04/21 05/24/24 Unknown History atorvastatin 40 mg tablet 40 mg PO DAILY 08/04/21 05/24/24 Unknown History carvedilol 3.125 mg tablet 3.125 mg PO BID 08/04/21 05/24/24 05/24/24 07:00 History cholecalciferol (vitamin D3) 25 25 mcg PO DAILY 08/04/21 05/24/24 Unknown History mcg (1,000 unit) capsule (Vitamin D3) clopidogrel 75 mg tablet 75 mg PO DAILY 08/04/21 05/24/24 05/14/24 History famotidine 20 mg tablet 20 mg PO BID 08/04/21 05/24/24 05/24/24 07:00 History levothyroxine 75 mcg tablet 75 mcg PO DAILY 08/04/21 05/24/24 05/24/24 07:00 History pantoprazole 40 mg tablet,delayed 40 mg PO QAM 08/04/21 05/24/24 Unknown History release spironolactone 25 mg tablet 25 mg PO DAILY 08/04/21 05/24/24 Unknown History tramadol 50 mg tablet 50 mg PO PRN PRN Pain 08/04/21 05/24/24 Unknown History acetaminophen 650 mg 650 mg PO Q8H 05/16/24 05/24/24 Unknown History tablet,extended release (Tylenol Arthritis Pain) mecobalamin (vitamin B12) 500 mcg 500 mcg PO DAILY 05/16/24 05/24/24 Unknown History chewable tablet polyethylene glycol 3350 17 17 g PO DAILY PRN Constipation 05/16/24 05/24/24 Unknown History gram/dose oral powder (Miralax) Allergies Allergy/AdvReac Type Severity Reaction Status Date / Time morphine Allergy Anaphylaxis Verified 10/05/24 15:12 Review of Systems 2 Review of Systems: All systems reviewed & are unremarkable except as noted in HPI and below Constitutional: Constitutional: Reports as per HPI and Reports no additional constitutional complaints Eyes: Eyes: Reports as per HPI and Reports no additional eye complaints ENT: Reports system reviewed and no additional complaints, except as documented and Reports as per HPI Cardiovascular: Cardiovascular: Reports as per HPI and Reports no additional cardiovascular complaints Respiratory: Respiratory: Reports as per HPI and Reports no additional respiratory complaints Gastrointestinal: Gastrointestinal: Reports as per HPI, Reports no additional gastrointestinal complaints, Reports abdominal pain and Reports constipation Genitourinary: Genitourinary: Reports no additional female genitourinary complaints and Reports as per HPI Musculoskeletal: Musculoskeletal: Reports no additional musculoskeletal complaints and Reports as per HPI Integumentary/Breasts: Skin/Breast: Reports system reviewed and no additional complaints, except as docu and Reports as per HPI Neurologic: Reports system reviewed and no additional complaints, except as documented and Reports as per HPI Psychiatric: Psychiatric: Reports no additional psychiatric complaints and Reports as per HPI Endocrine: Endocrine: Reports no additional endocrine complaints and Reports as per HPI Hematologic/Lymphatic: Hematologic/Lymphatic: Reports no additional hematologic/lymphatic complaints and Reports as per HPI Allergic/Immunologic: Allergic/Immunologic: Reports no additional allergic/immunologic complaints and Reports as per HPI PMFSH Past Medical History Medical History (Updated 10/05/24 @ 17:23 by Davion Charlton MD) Presence of internal carotid stent Hypertension Surgical History Surgical History (Updated 10/05/24 @ 15:58 by Davion Charlton MD) Hx of CABG Family History Family History Father Hypertension Mother Hypertension Family history of malignant neoplasm of brain Sibling Family history of malignant neoplasm Social History Social History (Updated 12/22/23 @ 10:21 [facility] Smoking status: Former smoker Tobacco type: cigarettes Smoking end date: 09/21/11 Alcohol intake: current Substance use: never Substance use type: does not use Living arrangements: with family Spiritual care concerns: No Exam 2 Narrative: blood pressure 158/99. Pulse of 68. Oxygen saturation 98% on room air. Const: General: no acute distress Nutritional Appearance: well nourished Orientation/consciousness: patient oriented x3 Limitations: no limitations HENMT: Head: normal to inspection Ears: external ears normal F steve/Nose/Sinus: Normal external nose present Face and sinus: normal facial exam Mouth: Yes Normal oral and palatal mucosa present Throat: posterior oropharynx normal Eyes: Conjunctivae: conjunctivae normal Pupils: Equal, round and reactive pupils present EOM: EOMs intact bilaterally Direct Ophthalmoscopy: no photophobia Neck: Neck: normal visual inspection, no lymphadenopathy and no meningeal signs Chest: Chest palpation & inspection: normal inspection of the chest Resp: Effort & Inspection: normal respiratory effort Auscultation: d iminished lung sounds Cardio: Rate: regular rate Rhythm: regular rhythm GI: GI Palp: Yes Soft to palpation Auscultation: normal bowel sounds O ther: No tenderness/ rigidity /rebound. : General: Yes no CVA tenderness Back/Spine/Pelvis: Back: no CVA tenderness Skin: General skin exam: normal color Rashes: no rashes Wounds: no wounds Neuro: General: patient oriented x3, moves all extremities, no meningeal signs, no focal motor deficits and CN's II-XI intact bilaterally Cranial nerves: Yes Nystagmus not present Speech: normal speech Gait exam (Neuro): Normal gait present Extrem: General: normal to inspection and no clubbing, cyanosis or edema Psych: Mental Status: mental status grossly normal Affect: normal affect Attitude: cooperative Procedures Other Procedure Procedure 1: Other Procedure: Fecal disimpaction 9 cm fecal ball in the rectum. Finger disimpaction blood work revealed - urinary tract infection -- macrocytosis -- neutropenia Course Course Emergency Course: Constipation/abdominal pain-- clinical examination is not suggestive of an acute abdomen. significant relief of symptoms after disimpaction. Vital Signs Vital signs: Vital Signs Temperature 36.7 C 10/05/24 15:07 Pulse Rate 68 10/05/24 15:07 Respiratory Rate 16 10/05/24 15:07 Blood Pressure 158/99 H 10/05/24 15:07 Pulse Oximetry 98 10/05/24 15:07 Oxygen Delivery Room Air 10/05/24 15:07 Temperature 36.7 C 10/05/24 15:07 Pulse Rate 68 10/05/24 15:07 Respiratory Rate 16 10/05/24 15:07 Blood Pressure 158/99 H 10/05/24 15:07 Pulse Oximetry 98 10/05/24 15:07 Oxygen Delivery Room Air 10/05/24 15:07 MDM - Abdominal Pain MDM Narrative Medical decision making narrative: constipation/fecal impaction urinary tract infection macrocytosis Differential Diagnosis Differential diagnosis: Likely abdominal pain, calculus of kidney and diverticulitis Lab Data 10/05/24 16:19 10/05/24 16:19 Labs: Lab Results 10/05/24 Range/Units 16:19 WBC 4.1 L (4.8-10.8) K/mm3 RBC 3.67 L (4.20-5.40) M/mm3 Hgb 13.1 (11.7-13.8) g/dL Hct 40.3 (35.0-42.0) % MCV 109.8 H (78.0-102.0) fL MCH 35.7 H (27.0-31.0) pg MCHC 32.5 (32-36) g/dL RDW 12.0 (11.6-14.4) % Plt Count 216 (150-420) K/mm3 MPV 9.7 (9.2-11.8) fl Immature Gran % (Auto) 0.2 H (0.0-0.0) % Neut % (Auto) 79.2 H (50.0-70.0) % Lymph % (Auto) 12.3 L (18.0-42.0) % Cocke % (Auto) 5.8 (2.0-11.0) % Eos % (Auto) 1.5 (1.0-6.0) % Baso % (Auto) 1.0 (0.0-1.0) % Lymph # (Auto) 0.51 L (1.10-4.50) K/mm3 Cocke # (Auto) 0.24 (0.10-0.90) K/mm3 Eos # (Auto) 0.06 (0.02-0.50) K/mm3 Baso # (Auto) 0.04 (0.00-0.10) K/mm3 Abs Immat Gran (auto) 0.01 H (0.00-0.00) K/mm3 Absolute Neuts (auto) 3.27 (1.70-7.20) K/mm3 Absolute Nucleated RBC 0.00 (0.00-0.00) K/mm3 Nucleated RBC % 0.0 (0-0.0) % Sodium 137 (136-145) mmol/L Potassium 4.2 (3.5-5.1) mmol/L Chloride 99 (98-108) mmol/L Carbon Dioxide 31 (21-32) mmol/L Anion Gap 7 (4-12) mmol/L BUN 27 H (7-18) mg/dL Creatinine 0.97 (0.55-1.02) mg/dL Estim Creat Clear Calc 33 ml/min Estimated GFR 55 L (59 - ) Glucose 104 H (70-99) mg/dL Calculated Osmolality 289 (285-295) mOsm/kg Lactic Acid 0.9 (0.4-2.0) mmol/L Calcium 10.1 (8.5-10.1) mg/dL Total Bilirubin 0.7 (0.00-1.00) mg/dL AST 15 (15-37) U/L ALT 18 (14-59) U/L Alkaline Phosphatase 114 (46-116) U/L Total Protein 7.2 (6.4-8.2) g/dL Albumin 4.2 (3.4-5.0) g/dL TSH 2.47 (0.36-3.74) uIU/mL Imaging Data Radiologist's impression: ITS Impressions Abdomen X-Ray 10/05/24 16:01 IMPRESSION: 1. 9 cm ball of stool at the rectum consistent with constipation with fecal impaction. Discharge Plan Discharge Clinical Impression: Fecal impaction in rectum Constipation Qualifiers: Constipation type: unspecified constipation type Qualified Code(s): K59.00 - Constipation, unspecified UTI (urinary tract infection) Qualifiers: Urinary tract infection type: acute cystitis Hematuria presence: without hematuria Qualified Code(s): N30.00 - Acute cystitis without hematuria Patient Disposition: Home, Self-Care Condition: Stable Instructions: Antibiotic Form, Constipation (ED), Urinary Tract Infection in Older Adults (ED) Additional Instructions: follow-up with your primary care physician for evaluation of neutropenia and macrocytosis Patient Language: Bur[place]ian Prescriptions: New ciprofloxacin HCl [Cipro] 250 mg tablet 250 mg PO Q12H Qty: 10 0RF No Action acetaminophen [Tylenol Arthritis Pain] 650 mg Tablet Extended Release 650 mg PO Q8H mecobalamin (vitamin B12) 500 mcg Tablet,Chewable 500 mcg PO DAILY polyethylene glycol 3350 [Miralax] 17 gram/dose Powder 17 g PO DAILY PRN (Reason: Constipation) atorvastatin 40 mg tablet 40 mg PO DAILY clopidogrel 75 mg tablet 75 mg PO DAILY tramadol 50 mg tablet 50 mg PO PRN PRN (Reason: Pain) spironolactone 25 mg tablet 25 mg PO DAILY carvedilol 3.125 mg tablet 3.125 mg PO BID levothyroxine 75 mcg Tablet 75 mcg PO DAILY famotidine 20 mg tablet 20 mg PO BID pantoprazole 40 mg Tablet,Delayed Release (Dr/Ec) 40 mg PO QAM cholecalciferol (vitamin D3) [Vitamin D3] 25 mcg (1,000 unit) Capsule 25 mcg PO DAILY aspirin 81 mg Capsule 81 mg PO DAILY Follow-up/Referrals: Phil Garcia MD [Primary Care Provider] - Time of Disposition: 17:23
[2024-10-05 16:24] LABS: Basophils Absolute Auto 0.04 K/mm3 (0.00-0.10); Eosinophils Absolute Auto 0.06 K/mm3 (0.02-0.50); Eosinophils Percent Auto 1.5 % (1.0-6.0); Hematocrit 40.3 % (35.0-42.0); Hemoglobin 13.1 g/dL (11.7-13.8); Immature Granulocyte Absolute 0.01 K/mm3 (0.00-0.00); Immature Granulocyte Percent A 0.2 % (0.0-0.0); Lymphocytes Absolute Auto 0.51 K/mm3 (1.10-4.50); Lymphocytes Percent Auto 12.3 % (18.0-42.0); Mean Corpuscular HGB Conc 32.5 g/dL (32-36); Mean Corpuscular Hemoglobin 35.7 pg (27.0-31.0); Mean Corpuscular Volume 109.8 fL (78.0-102.0); Mean Platelet Volume 9.7 fl (9.2-11.8); Monocytes Absolute Auto 0.24 K/mm3 (0.10-0.90); Monocytes Percent Auto 5.8 % (2.0-11.0); Neutrophils Absolute Auto 3.27 K/mm3 (1.70-7.20); Neutrophils Percent Auto 79.2 % (50.0-70.0); Platelet Count Result 216 K/mm3 (150-420); Red Blood Count 3.67 M/mm3 (4.20-5.40); White Blood Count 4.1 K/mm3 (4.8-10.8)
[2024-10-05 16:41] LABS: Alanine Aminotransferase 18 U/L (14-59); Albumin Level 4.2 g/dL (3.4-5.0); Alkaline Phosphatase 114 U/L (46-116); Aspartate Amino Transferase 15 U/L (15-37); Bilirubin,Total 0.7 mg/dL (0.00-1.00); Blood Urea Nitrogen 27 mg/dL (7-18); Calcium 10.1 mg/dL (8.5-10.1); Carbon Dioxide 31 mmol/L (21-32); Estimated CRCL calculation 33 ml/min; Estimated Glomerular Filt Rate 55; Glucose 104 mg/dL (70-99); Osmolality Calculated 289 mOsm/kg (285-295); Total Protein 7.2 g/dL (6.4-8.2)
[2024-10-05 16:52] LABS: Thyroid Stimulating Hormone 2.47 uIU/mL (0.36-3.74)
[2024-10-05 16:55] LABS: Anion Gap 7 mmol/L (4-12); Chloride 99 mmol/L (98-108); Potassium 4.2 mmol/L (3.5-5.1); Sodium 137 mmol/L (136-145)
[2024-10-05 17:01] LABS: Lactic Acid Reflex 0.9 mmol/L (0.4-2.0)
--- NOTE | 2024-10-05 17:01 | PC.NURSE ---
ERP HAS MANUALLY DISIMPACTED PT, SHE TOLERATED WITH DISCOMFORT. PT REPORTS SHE FEELS MUCH BETTER AT THIS TIME. WILL CONTINUE TO MONITOR.
[2024-10-05 17:31] VITALS: BP 148/78; PULSE 88; RESP 18; TEMP 36.6; O2SAT 98
== END 2024-10-05 17:31 | disposition home or self-care (01) ==
PROVIDERS: Emergency Provider Internal Medicine Critical Care Medicine; PCP Internal Medicine
DX: N30.00 Acute cystitis without hematuria (principal); K56.41 Fecal impaction; E03.9 Hypothyroidism, unspecified; I10 Essential (primary) hypertension; I25.810 Atherosclerosis of coronary artery bypass graft(s) without angina pectoris; Z87.891 Personal history of nicotine dependence
CPT/HCPCS: 36415; 74018; 80053; 83605; 84443; 85025; 99283

== ENCOUNTER 2024-12-17 09:34 | Outpatient (CLI) | payer MEDICARE, SELFPAY ==
--- NOTE | ~2024-12-17 | MR_ITS ---
EXAMINATION: MR brain/brain stem wo con DATE: 12/17/2024 10:17 INDICATION: Memory loss. TECHNIQUE: Magnetic resonance imaging (MRI) of the brain and brainstem was performed without intraven ous contrast. COMPARISON: Head CT 04/26/2023 FINDINGS: There are scattered areas of nonspecific increased T2-weighted signal intensity in the cere bral white matter. There is no intracranial hemorrhage, acute infarction, or abnormal intracranial ma ss lesion. The ventricles are normal in size. There is mucosal thickening in the paranasal sinuses. T here are likely changes of ocular lens replacement surgeries. There are trace bilateral mastoid effus ions. There are changes of posterior fusion procedure in cervical spine. IMPRESSION: 1. Mild nonspecific cerebral white matter disease, which likely represents chronic small vessel ische sawyer disease. Reviewed, dictated and finalized at location A. IMPRESSION: 1. 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
== END 2024-12-17 09:35 | disposition home or self-care (01) ==
PROVIDERS: PCP Internal Medicine; Visit Provider Internal Medicine
DX: G31.84 Mild cognitive impairment of uncertain or unknown etiology (principal); I25.10 Atherosclerotic heart disease of native coronary artery without angina pectoris; R90.82 White matter disease, unspecified
CPT/HCPCS: 70551

== ENCOUNTER 2024-12-28 20:01 | Emergency (ER) | payer MEDICARE, SELFPAY ==
[2024-12-28] VITALS (15 sets, daily range): BP systolic 160–228; BP diastolic 80–123; PULSE 63–81; RESP 9–18; TEMP 36.3; O2SAT 94–99
--- NOTE | ~2024-12-28 | XR_ITS ---
XR chest 1V portable Ordering provider: Davion Charlton MD History: 84 years Female with . CHF . Comparison: December 09, 2022 FINDINGS: MEDIASTINUM: The cardiac silhouette is slightly enlarged. Congestive laurie. Postoperative changes in t he mediastinum. LUNGS: No effusions or pneumothorax. Minimal interstitial thickening bilaterally more prominent in th e right lung base. OTHER: No free air under the diaphragm. IMPRESSION: Cardiomegaly. Prominent markings in the right lung base with minimal interstitial thickening. Differential include pneumonitis versus early edema. Clinical correlation advised. Reviewed, dictated and finalized at location A. IMPRESSION: Cardiomegaly. Prominent markings in the right lung base with minimal interstitial thickening. Differential include pneumonitis versus early edema. Clinical correlation advi sed.
--- OUTSIDE RECORDS SUMMARY | 2024-12-28 20:03 | XMS_ITS | Encounter Summary ---
Author Organization [facility] Address [facility] [place] [address] Care Team Providers Care [employer] Superintendent Name Role Phone Phil Garcia MD Primary Care Provider [phone] Guy Su MD Unavailable Unavailabl Dionisio Balderas MD Unavailable [phone] Sb Gil APRN Unavailable [phone] Ban Dickerson MD Unavailable Encounter Details Date Type Department Care Team (Late Contact Info) Description 12/05/2017 Abstract [facility] CONVERSION [address] [place] [address] , Generic ConversionMD Social History Tobacco Use Types Packs/Day Years Used Date Smoking Tobacco: Former Cigarettes Q uit: 03/2013 Smokeless Tobacco: Never Alcohol Use Standard Drinks/Week Comments Yes 0 (1 standard drink = 0.6 oz pur e alcohol) 1/2 glass red wine with supper Comments Unknown Sex and Gender Information Value Date Recorded Sex Assigned at Not on file Legal Sex Female 2:42 AM CDT Gender Identity Not on file Sexual Orientation Not on file Occupation Industry Job Start Date Job End Date Not on file Not on file Not on file Not on file documented as of this encounter Plan of Treatment Upcoming Encounters Date Type Department Care Team (Late Contact Info) Description 05/15/2025 1:00 PM CDT Office Visit [facility] [place] [address] Ban Dickerson MD [address] [place] [phone] documented as of this encounter Visit Diagnoses Not on filedocumented in this encounter Care Teams [employer] Superintendent Relationship Specialty Start Date End Date Phil Garcia MD [address] [place] [address] PCP - General INTERNAL MEDICINE 04/09/16 Guy Su MD [address] [place] [phone] [employer] Analyst CARDIOVASCULAR DISEASE 04/09/16 10/13/24 Dionisio Puga MD [address] [place] [address] Consulting Physician INTERVENTIONAL CARDIOLOGY 02/15/19 10/13/24 Sb Gil APRN [address] [place] [phone] Nurse Practitioner NURSE PRACTITIONER 02/15/19 10/13/24 Ban Dickerson MD [address] [place] [address] [employer] Analyst CARDIOVASCULAR DISEASE 10/14/24 documented as of this encounter
--- OUTSIDE RECORDS SUMMARY | 2024-12-28 20:03 | XMS_ITS | Encounter Summary ---
Author Organization [facility] Address [facility] [place] [address] Care Team Providers Care Control Operator Flow Coat Name Role Phone Phil Garcia MD Primary Care Provider [phone] Guy Su MD Unavailable Unavailabl Dionisio Balderas MD Unavailable [phone] Sb Gil APRN Unavailable [phone] Ban Dickerson MD Unavailable Encounter Details Date Type Department Care Team (Late Contact Info) Description 05/02/2015 Abstract [facility] [address] [place] [phone] Guy Su MD Social History Tobacco Use Types Packs/Day Years Used Date Smoking Tobacco: Former Cigarettes Q uit: 03/2013 Smokeless Tobacco: Never Alcohol Use Standard Drinks/Week Comments No 0 (1 standard drink = 0.6 oz pur e alcohol) Comments Unknown Sex and Gender Information Value [...] Description 05/15/2025 1:00 PM CDT Office Visit [facility] [place] [address] Ban Dickerson MD [address] [place] [phone] documented as of this encounter Visit Diagnoses Not on filedocumented in this encounter Care Teams Control Operator Flow Coat Relationship Specialty Start Date End Date Phil Garcia MD [address] [place] [address] PCP - General INTERNAL MEDICINE 04/09/16 Guy Su MD [address] [place] [address] [employer] Specialist CARDIOVASCULAR DISEASE 04/09/16 10/13/24 Dionisio Puga MD [address] [place] [address] Consulting Physician INTERVENTIONAL CARDIOLOGY 02/15/19 10/13/24 Sb Gil APRN [address] [place] [address] Nurse Practitioner NURSE PRACTITIONER 02/15/19 10/13/24 Ban Dickerson MD [address] [place] [address] [employer] Specialist CARDIOVASCULAR DISEASE 10/14/24 documented as of this encounter
--- OUTSIDE RECORDS SUMMARY | 2024-12-28 20:03 | XMS_ITS | Clinical Summary ---
Author Organization [facility] Address [facility] [place] [address] Care Team Providers Care Rubber Turner Name Role Phone Phil Garcia MD Primary Care Provider [phone] Chang Diallo MD Unavailable Allergies Active Allergy Reactions Criticality Noted Date Comments Morphine Itching Low 04/26/2023 Itching Medications aspirin 81 MG tablet Take 1 tablet (81 mg total) by mouth daily. 04/12/2013 Active levothyroxine (SYNTHROID) 75 MCG tablet Take 1 tablet (75 mcg total) by mouth daily. 04/12/2013 Active acetaminophen (TYLENOL) 325 MG tablet Tylenol (acetaminoph en) tablet 325 mg; as needed; 0; 23-Feb-2014; Active 02/23/2014 Active TRAVATAN Z 0.004 % opthalamic solution Place 1 drop into both eyes as needed. 02/15/2016 Active traMADol 50 MG tablet Take 1 tablet (50 mg total) by mouth 4 (four) times daily. 01/23/2017 Active pantoprazole EC 40 MG tablet Take 1 tablet (40 mg total) by mouth daily. 06/12/2020 Active Magnesium Oxide 500 MG Tab Take 1 tablet by mouth daily with breakfast. Active atorvastatin (LIPITOR) 40 MG tablet Take 1 tablet (40 mg total) by mouth daily. 90 tablet 3 11/01/2024 Active famotidine (PEPCID) 20 MG tablet Take 1 tablet (20 mg total) by mouth 2 (two) times daily. 180 tablet 3 11/08/2024 Active clopidogrel (PLAVIX) 75 MG tablet Take 1 tablet (75 mg total) by mouth daily. 90 tablet 3 11/08/2024 Active spironolactone (ALDACTONE) 25 MG tablet Take 1 tablet (25 mg total) by mouth daily. 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 Overview (05/12/2018): STATON to distal RCA, sequential SVG to D1 and D2, sequential SVG to PDA branch of the circumflex and PDA branch of RCA Bilateral carotid artery disease Overview (04/16/2016): 80% stenosis of LICA, 40-59% stenosis of PINA with antegrade flow of both vertebrals on 05/02/2015 carotid Doppler Orthostatic hypotension Resolved Problems Problem Noted Date Diagnosed Date Resolved Date SBO (small bowel obstruction ) ([facility]) 04/26/2023 05/15/2023 Encounters Date Type Department Care Team Description 12/20/2024 Telephone [facility] [address] [place] [address] Chang Diallo MD Results 12/15/2024 9:27 AM CDT - 12/15/2024 11:59 PM CDT Hospital Encounter [facility] [address] [place] [address] Chang Diallo MD Discharge Disposition: Home or Self Care (Routine Discharge) 12/15/2024 Travel 12/05/2024 Telephone [facility] [address] [place] [address] Chang Diallo MD Results 11/29/2024 Telephone [facility] [address] [place] [address] Chang Diallo MD Reschedule 11/22/2024 Telephone [facility] [address] [place] [address] Chang Diallo MD Refill Request 11/15/2024 Telephone [facility] [address] [place] [address] Chang Diallo MD Information 11/10/2024 10:30 AM CRUISE DIRECTOR Telephone [facility] [address] [place] [address] Chang Diallo MD Holter Monitor 11/07/2024 Telephone [facility] [address] [place] [address] Chang Diallo MD Refill Request 11/03/2024 11:30 AM CRUISE DIRECTOR Office Visit [facility] [address] [address] Chang Diallo MD 11/03/2024 Scan [facility] [address] [place] [address] Scanned, Doc Pccl 11/03/2024 Telephone [facility] [address] [place] [address] Chang Diallo MD Schedule Test 11/02/2024 [facility] [address] [address] Chang Diallo MD Appointment Reminder 11/02/2024 Orders Only [facility] [address] [place] [address] Chang Diallo MD 10/14/2024 Telephone [facility] [address] [place] [address] Chang Diallo MD Appointment Request from Last 3 Months Family History Medical History Relation Comments Cancer Brother Stroke Father Relation Status Comments Brother (Age 35) Father (Age 70) Maternal Grandfather Maternal Grandmother Mother (Age 59) Paternal Grandfather Paternal Grandmother Social History Tobacco Use Types Packs/Day Years Used Date Smoking Tobacco: Former Cigarettes Q uit: 03/2013 Smokeless Tobacco: Never Tobacco Cessation:Counseling Given: Not Answered Alcohol Use Standard Drinks/Week Comments No 0 (1 standard drink = 0.6 oz pur e alcohol) Humiliation, Afraid, Rape, and Kick questionnair e Answer Date Recorded Within the last year, have y ou been afraid of your partner or ex-partner? No 04/26/2023 Within the last year, have y ou been humiliated or emotionally abused in other ways by your partner or ex-partner? No Within the last year, have y ou been kicked, hit, slapped, or otherwise physically hurt by your partner or ex-partner? No 04/26/2023 Within the last year, have y ou been raped or forced to have any kind of sexual activity by your partner or ex-partner? No 04/26/2023 Social Connection and Isolat ion Panel [NHANES] Answer Date Recorded In a typical week, how many times do you talk on the phone with family, friends, or neighbors? More than three times a week 04/26/2023 How often do you get togethe r with friends or relatives? Never 04/26/2023 How often do you attend chur ch or tenriism services? Never 04/26/2023 Do you belong to any clubs o r organizations such as restorationist groups, unions, fraternal or athletic groups, or school groups? No 04/26/2023 How often do you attend meet ings of the clubs or organizations you belong to? Never 04/26/2023 Are you , , di vorced, , never , or living with a partner? 04/26/2023 AUDIT-C Answer Date Recorded Q1: How often do you have a drink containing alcohol? Never 04/26/2023 Q2: How many drinks containi ng alcohol do you have on a typical day when you are drinking? Patient does not drink Q3: How often do you have si x or more drinks on one occasion? Never 04/26/2023 Overall Financial Resource Strain (CARDIA) Answe r Date Recorded How hard is it for you to pa y for the very basics like food, housing, medical care, and heating? Not hard at all 04/26/2023 [facility] of Occupat ional Health - Occupational Stress Questionnaire Answer Date Recorded Do you feel stress - tense, restless, nervous, or anxious, or unable to sleep at night because your mind is troubled all the time - these days? Not at all 04/26/2023 Exercise Vital Sign Answer Date Recorde d On average, how many days pe r week do you engage in moderate to strenuous exercise (like a brisk walk)? 0 days 04/26/2023 On average, how many minutes do you engage in exercise at this level? 0 min 04/26/2023 Hunger Vital Sign Answer Date Recorded Within the past 12 months, y ou worried that your food would run out before you got the money to buy more. Never true 04/26/20 23 Within the past 12 months, t he food you bought just didn't last and you didn't have money to get more. Never true 04/26/2023 PRAPARE - Transportation Answer Date Re corded In the past 12 months, has l ack of transportation kept you from medical appointments or from getting medications? No 02/2023 In the past 12 months, has l ack of transportation kept you from meetings, work, or from getting things needed for daily living? No 04/26/2023 Housing Stability Vital Sign Answer Louie e Recorded In the last 12 months, was t here a time when you were not able to pay the mortgage or rent on time? No 04/26/2023 In the last 12 months, how many places have you lived? 1 04/26/2023 In the last 12 months, was t here a time when you did not have a steady place to sleep or slept in a jail (including now)? No 04/26/2023 Comments Unknown Sex and Gender Information Value Date Recorded Sex Assigned at Not on file Legal Sex Female 2:42 AM CDT Gender Identity Not on file Sexual Orientation Not on file Occupation Industry Job Start Date Job End Date Not on file Not on file Not on file Not on file Last Filed Vital Signs Vital Sign Reading Time Taken Comments Blood Pressure 181/92 11/03/2024 1:31 PM CRUISE DIRECTOR Pulse 54 11/03/2024 1:31 PM CRUISE DIRECTOR Temperature 36.5 C (97.7 F) 05/15/2023 7:40 AM CDT Respiratory Rate 14 11/03/2024 1:31 PM CRUISE DIRECTOR Oxygen Saturation 99% 11/03/2024 1:31 PM CRUISE DIRECTOR Inhaled Oxygen Concentration - - Weight 57.6 kg (127 lb) 11/03/2024 1:31 PM CRUISE DIRECTOR Height 162.6 cm (5' 4 ) 11/03/2024 1:31 PM CRUISE DIRECTOR Body Mass Index 21.8 11/03/2024 1:31 PM CRUISE DIRECTOR Plan of Treatment Upcoming Encounters Date Type Department Care Team (Late st Contact Info) Description 05/15/2025 1:00 PM CDT Office Visit [facility] [place] [address] Chang Diallo MD [address] [place], [place] [id number] Health Maintenance Due Date Last Done Comments Annual Medicare Wellness Visit 2006 Dexa Scan (General) 2006 ASCVD LDL 03/27/2014 03/27/2013 Zoster Vaccines (2 of 2) 09/23/2019 07/29/2019 COVID-19 Vaccine ( season) 2024 06/17/2024, 07/28/2023, 06/19/2022, Additional history exists DTaP, Tdap and Td Vaccines (2 - Td or Tdap) 07/18/2034 07/18/2024 Pneumococcal Vaccine: 65+ Years Completed 07/21/2016, 10/28/2012, 08/10/2011 RSV Immunization or 60+ Years Completed 07/18/2024 Meningococcal B Vaccine Aged Out No l onger eligible based on patient's age to complete this topic Meningococcal Vaccine Aged Out No nicanor lucila eligible based on patient's age to complete this topic RSV Immunizations Under 20 Months Aged Out No longer eligible based on patient's age to complete this topic Goals Goal Patient Goal Type Associated Problems Recent Progress Patient-Stated? Author Family - family caregiver with be involved in care transitions and discharge planning Lifestyle No Padma Goodson, associate relations specialist Procedure Name Priority Date/Time Associated Diagnosis Comments USV CAROTID DUPLEX PAOLA Routine 10:32 AM CDT Bilateral carotid artery stenosis USE ECHOCARDIOGRAM Routine 12/15/2024 10 :32 AM CDT Coronary artery disease involving [place] coronary artery of [place] heart without angina pectoris MOBILE CONTINUOUS TELEMETRY Routine 11/24/2024 2:39 PM CRUISE DIRECTOR Coronary artery disease involving [place] coronary artery of [place] heart without angina pectoris ELECTROCARDIOGRAM, TRACING Routine 11/03/2024 Coronary artery disease involving [place] coronary artery of [place] heart without angina pectoris LIPID PANEL Routine 03/27/2013 12:00 AM CDT from Last 3 Months or Most Recently Relevant to Health Maintenance Results * USV CAROTID DUPLEX PAOLA (12/15/2024 10:32 AM CDT) Anatomical Region Laterality Modality Neck Ultrasound 12/15/2024 9:46 AM CDT Narrative 12/18/2024 10:25 AM CDT Outreach Carotid Ultrasound Vascular Report Pat.Name: Cheli Fischer Pat.ID: [id number] .Date: 12/15/2024 Refer.MD: Outreach, [facility] Exam Time: 9:46:00 AM Study Type:OUTREACH CAROTID SCAN BILATERAL Height: 64 in Age: 12 1940,84Y Sex: F Sonogrphr: Aris Sampson [facility] Pat. Stat.:Outpatient Reason for Study:Bilateral carotid artery stenosis Procedures: Study performed at [facility], [place], [place] and interpreted by [facility]. ++++++++++++++++++++++++++++++++++++ FINDINGS: ++++++++++++++++++++++++++++++++++++ Rt ICA: 0-39% stenosis with plaque noted in the internal carotid artery. Moderate heterogeneous plaque noted. Rt ECA: Patent with antegrade flow noted in the external carotid artery. Rt Vert: Normal antegrade vertebral flow. Lt ICA: Patent stent noted in the internal carotid artery. Lt ECA: Patent with antegrade flow noted in the external carotid artery. Lt Vert: Normal antegrade vertebral flow. ++++++++++++++++++++++++++++++++++++ MEASUREMENTS: ++++++++++++++++++++++++++++++++++++ DOPPLER Right Prox CCA Prox CCA PSV 54 cm/s Prox CCA EDV 9 cm/s Right Mid CCA Mid CCA PSV 45 cm/s Mid CCA EDV 10 cm/s Right Dist CCA Dist CCA PSV 66 cm/s Dist CCA EDV 14 cm/s Right Prox ICA Prox ICA PSV 74 cm/s Prox ICA EDV 20 cm/s Right Mid ICA Mid ICA PSV 58 cm/s Mid ICA EDV 17 cm/s Right Dist ICA Dist ICA PSV 28 cm/s Dist ICA EDV 8 cm/s Right Prox ECA Prox ECA PSV 145 cm/s Prox ECA EDV 12 cm/s Right Bifurcation Bifurcation PSV 46 cm/s Bifurcation EDV 12 cm/s Right Vertebral Vertebral PSV 15 cm/s Vertebral EDV 5 cm/s Right ICA/CCA RATIO ICA/CCA RATIO P 1.12 Left Prox CCA Prox CCA PSV 78 cm/s Prox CCA EDV 12 cm/s Left Mid CCA Mid CCA PSV 76 cm/s Mid CCA EDV 12 cm/s Left Dist CCA Dist CCA PSV 78 cm/s Dist CCA EDV 10 cm/s Left Prox ICA Prox ICA PSV 67 cm/s Prox ICA EDV 14 cm/s Left Mid ICA Mid ICA PSV 44 cm/s Mid ICA EDV 16 cm/s Left Dist ICA Dist ICA PSV 51 cm/s Dist ICA EDV 18 cm/s Left Prox ECA Prox ECA PSV 71 cm/s Prox ECA EDV 0 cm/s Left Bifurcation Bifurcation PSV 70 cm/s Bifurcation EDV 11 cm/s Left Vertebral Vertebral PSV 28 cm/s Vertebral EDV 0 cm/s Left ICA/CCA RATIO ICA/CCA RATIO P 0.859 <Electronic Signature> 12/18/2024 10:25 AM Chang Diallo M.D. Procedure Note Chang Diallo MD - 12/18/2024 Outreach Carotid Ultrasound Vascular Report Pat.Name: Cheli Fischer Pat.ID: [id number] .Date: 12/15/2024 Refer.MD: Dick, [facility] Exam Time: 9:46:00 AM Study Type:OUTREACH CAROTID SCAN BILATERAL Height: 64 in Age: 12 1940,84Y Sex: F Sonogrphr: Adrián Angélicaant [facility] Pat. Stat.:Outpatient Reason for Study:Bilateral carotid artery stenosis Procedures: Study performed at [facility], [place], [place] and interpreted by [facility]. ++++++++++++++++++++++++++++++++++++ FINDINGS: ++++++++++++++++++++++++++++++++++++ Rt ICA: 0-39% stenosis with plaque noted in the internal carotid artery. Moderate heterogeneous plaque noted. Rt ECA: Patent with antegrade flow noted in the external carotid artery. Rt Vert: Normal antegrade vertebral flow. Lt ICA: Patent stent noted in the internal carotid artery. Lt ECA: Patent with antegrade flow noted in the external carotid artery. Lt Vert: Normal antegrade vertebral flow. ++++++++++++++++++++++++++++++++++++ MEASUREMENTS: ++++++++++++++++++++++++++++++++++++ DOPPLER Right Prox CCA Prox CCA PSV 54 cm/s Prox CCA EDV 9 cm/s Right Mid CCA Mid CCA PSV 45 cm/s Mid CCA EDV 10 cm/s Right Dist CCA Dist CCA PSV 66 cm/s Dist CCA EDV 14 cm/s Right Prox ICA Prox ICA PSV 74 cm/s Prox ICA EDV 20 cm/s Right Mid ICA Mid ICA PSV 58 cm/s Mid ICA EDV 17 cm/s Right Dist ICA Dist ICA PSV 28 cm/s Dist ICA EDV 8 cm/s Right Prox ECA Prox ECA PSV 145 cm/s Prox ECA EDV 12 cm/s Right Bifurcation Bifurcation PSV 46 cm/s Bifurcation EDV 12 cm/s Right Vertebral Vertebral PSV 15 cm/s Vertebral EDV 5 cm/s Right ICA/CCA RATIO ICA/CCA RATIO P 1.12 Left Prox CCA Prox CCA PSV 78 cm/s Prox CCA EDV 12 cm/s Left Mid CCA Mid CCA PSV 76 cm/s Mid CCA EDV 12 cm/s Left Dist CCA Dist CCA PSV 78 cm/s Dist CCA EDV 10 cm/s Left Prox ICA Prox ICA PSV 67 cm/s Prox ICA EDV 14 cm/s Left Mid ICA Mid ICA PSV 44 cm/s Mid ICA EDV 16 cm/s Left Dist ICA Dist ICA PSV 51 cm/s Dist ICA EDV 18 cm/s Left Prox ECA Prox ECA PSV 71 cm/s Prox ECA EDV 0 cm/s Left Bifurcation Bifurcation PSV 70 cm/s Bifurcation EDV 11 cm/s Left Vertebral Vertebral PSV 28 cm/s Vertebral EDV 0 cm/s Left ICA/CCA RATIO ICA/CCA RATIO P 0.859 <Electronic Signature> 12/18/2024 10:25 AM Chang Diallo M.D. Chang Diallo MD [facility] Final Result * USE ECHOCARDIOGRAM (12/15/2024 10:32 AM CDT) Anatomical Region Laterality Modality Cardiac Ultrasound 12/15/2024 10:1 1 AM CDT Narrative 12/18/2024 10:51 AM CDT Echocardiography Report Pat.Name: Cheli Fischer Pat.ID: [id number] .Date: 12/15/2024 Refer.MD: Dick, [facility] Exam Time: 10:11:00 AM Study Type:OUTREACH Height: 64 in Weight: 125 lb BSA: 1.6 m2 Age: 12 1940,84Y Sex: F Sonogrphr: Sf Pat. Stat.:Outpatient Reason for Study:Coronary artery disease involving [place] coronary artery of [place] heart without angina pectoris, CABG Procedures: Study performed at [facility], [place], [place] and interpreted by [facility]. 2D, M-mode, Doppler, Color Flow ++++++++++++++++++++++++++++++++++++ SUMMARY: ++++++++++++++++++++++++++++++++++++ The left ventricular size is normal. Moderate concentric left ventricular hypertrophy. Left ventricular diastolic function is abnormal (grade 1 - impaired relaxation). The right ventricle size is normal. The right ventricular function is normal. There is trace tricuspid regurgitation. ++++++++++++++++++++++++++++++++++++ FINDINGS: ++++++++++++++++++++++++++++++++++++ LV: The left ventricular size is normal. The left ventricular systolic function is normal. Moderate concentric left ventricular hypertrophy. Left ventricular diastolic function is abnormal (grade 1 - impaired relaxation). RV: The right ventricle size is normal. The right ventricular function is normal. LA: Left atrial size is normal. RA: The right atrial size is normal. DEXTER: No evidence of pericardial effusion. AO: Aorta is normal. PA: No evidence of pulmonary hypertension. SVn: Inferior vena cava is normal. AV: The aortic valve is trileaflet. No evidence of aortic valve stenosis. Trace aortic regurgitation. MV: The mitral valve is structurally normal. There is trace mitral regurgitation. PV: The pulmonic valve is normal There is trace pulmonic regurgitation TV: The tricuspid valve appears structurally normal. There is trace tricuspid regurgitation. <Electronic Signature> 12/18/2024 10:51 AM Chang Diallo M.D. Procedure Note Chang Diallo MD - 12/18/2024 Echocardiography Report Pat.Name: Cheli Fischer Pat.ID: [id number] .Date: 12/15/2024 [facility] AM Study Type:DICK Height: 64 in Weight: 125 lb BSA: 1.6 m2 Age: 12 1940,84Y Sex: F Sonogrphr: Sf Pat. Stat.:Outpatient Reason for Study:Coronary artery disease involving [place] coronary artery of [place] heart without angina pectoris, CABG Procedures: Study performed at [place], [place] and interpreted by [facility]. 2D, M-mode, Doppler, Color Flow ++++++++++++++++++++++++++++++++++++ SUMMARY: ++++++++++++++++++++++++++++++++++++ The left ventricular size is normal. Moderate concentric left ventricular hypertrophy. Left ventricular diastolic function is abnormal (grade 1 - impaired relaxation). The right ventricle size is normal. The right ventricular function is normal. There is trace tricuspid regurgitation. ++++++++++++++++++++++++++++++++++++ FINDINGS: ++++++++++++++++++++++++++++++++++++ LV: The left ventricular size is normal. The left ventricular systolic function is normal. Moderate concentric left ventricular hypertrophy. Left ventricular diastolic function is abnormal (grade 1 - impaired relaxation). RV: The right ventricle size is normal. The right ventricular function is normal. LA: Left atrial size is normal. RA: The right atrial size is normal. DEXTER: No evidence of pericardial effusion. AO: Aorta is normal. PA: No evidence of pulmonary hypertension. SVn: Inferior vena cava is normal. AV: The aortic valve is trileaflet. No evidence of aortic valve stenosis. Trace aortic regurgitation. MV: The mitral valve is structurally normal. There is trace mitral regurgitation. PV: The pulmonic valve is normal There is trace pulmonic regurgitation TV: The tricuspid valve appears structurally normal. There is trace tricuspid regurgitation. <Electronic Signature> 12/18/2024 10:51 AM Chang Diallo M.D. Chang Diallo MD ECHO Final Result * [facility] - [id number] [facility] - Today (11/24/2024 2:39 PM CRUISE DIRECTOR) [facility] CARDIOVASCULAR - 11/24/2024 2:39 PM CRUISE DIRECTOR Baseline Rhythm * The baseline rhythm was Sinus Rhythm with heart rates ranged between 41 and 82 beats per minute, with average rate of 54 beats per minute. A-V Conduction * No Second Degree AV Block Type II. * No Third Degree AV Block. * No Pauses. Supraventricular Arrhythmia * There were 57,458 Supraventricular Ectopic beats with a burden of 14%. * No Supraventricular Tachycardia. Ventricular Arrhythmia * There were 867 Ventricular Ectopic beats with a burden of <1%. * 1 Ventricular Tachycardia events - the longest episode was 5.4s on 11/14 02:00, and the fastest episode was 104 BPM on 11/14 02:00. Atrial Fibrillation * No Atrial Fibrillation. Patient Triggered Events * No patient triggered events, and no symptoms. Signed CHANG DIALLO MD, MS, FACC, RVPI [facility] [employer] CARDIOVASCULAR [place], [place] us Chang Diallo MD CV VASCULAR ORDERABLES Final Res ult Performing Organization Address [facility] Co de Phone Number [employer] CARDIOVASCULAR * NOT [facility] - ELECTROCARDIOGRAM, TRACING (11/03/2024) us Chang Diallo MD PROCEDURES-UNRESULTED Final Resu lt * LIPID PANEL (03/27/2013 12:00 AM CDT) TRIGLYCERIDES 69 0 - 150 mg/dl [employer] TO EPIC CONVERSION CHOLESTEROL 203 0 - 200 mg/dl [employer] TO EPIC CONVERSION HDL 88 40 - 59 mg/dl [employer] TO EPIC CONVERSION LDL CONVERSION 93 0 - 100 mg/dl [employer] TO EPIC CONVERSION 03/27/2013 03/27/2013 Narrative [employer] TO EPIC CONVERSION - 05/25/2013 12:08 PM CDT Reviewed by AMY May 25 2013 12:09:00:000PM us Generic Conversion Md [facility] Final R esult [employer] TO EPIC CONVERSION from Last 3 Months or Most Recently Relevant to Health Maintenance Insurance MEDICARE MEDICARE Advance Directives * Full Code (Latest Code Status on File) Date Activated Date Inactivated Comments 04/26/2023 7:36 PM 05/15/2023 6:47 PM Care Teams Rubber Turner Relationship Specialty Start Date End Date Phil Garcia MD [address] [place] [id number] PCP - General INTERNAL MEDICINE 04/09/16 Chang Diallo MD [address] [place] [address] [employer] CARDIOVASCULAR DISEASE 10/14/24
--- NOTE | 2024-12-28 20:17 | ED_ITS ---
HPI - General Adult General Chief complaint: Extremity Injury, Lower Stated complaint: lower extremity swelling Time Seen by Provider: 12/28/24 20:15 History of Present Illness HPI narrative: 84-year-old female Ex-smoker with a history of hypertension, dyslipidemia, hypothyroidism, CAD status post CABG, right carotid stenosis status post stent, SP a status post surgery, status post colostomy takedown presents to the ED with -- bilateral leg swelling. patient does not have any chest pain or shortness of breath. -- Systolic hypertension with a blood pressure of 183/88. -- Left knee pain which woke her up from a sleep and spontaneously resolved. Patient has a history of arthritis and has intermittent joint pain. Patient was recently started on memantine and the patient was concerned that her leg swelling might be a complication of memantine. Onset (ago): day(s) ( One day) Relieving factors: none Exacerbating factors: none Treatments prior to arrival: none Related Data Home Medications ?Medication ?Instructions ?Recorded ?Confirmed ?Last Taken ?Type aspirin 81 mg capsule 81 mg PO DAILY 08/04/21 12/28/24 Unknown History atorvastatin 40 mg tablet 40 mg PO DAILY 08/04/21 12/28/24 Unknown History carvedilol 3.125 mg tablet 3.125 mg PO BID 08/04/21 12/28/24 05/24/24 07:00 History cholecalciferol (vitamin D3) 25 25 mcg PO DAILY 08/04/21 12/28/24 Unknown History mcg (1,000 unit) capsule (Vitamin D3) clopidogrel 75 mg tablet 75 mg PO DAILY 08/04/21 12/28/24 05/14/24 History famotidine 20 mg tablet 20 mg PO BID 08/04/21 12/28/24 05/24/24 07:00 History levothyroxine 75 mcg tablet 75 mcg PO DAILY 08/04/21 12/28/24 05/24/24 07:00 History pantoprazole 40 mg tablet,delayed 40 mg PO QAM 08/04/21 12/28/24 Unknown History release spironolactone 25 mg tablet 25 mg PO DAILY 08/04/21 12/28/24 Unknown History tramadol 50 mg tablet 50 mg PO PRN PRN Pain 08/04/21 12/28/24 Unknown History acetaminophen 650 mg 650 mg PO Q8H 05/16/24 12/28/24 Unknown History tablet,extended release (Tylenol Arthritis Pain) mecobalamin (vitamin B12) 500 mcg 500 mcg PO DAILY 05/16/24 12/28/24 Unknown History chewable tablet polyethylene glycol 3350 17 17 g PO DAILY PRN Constipation 05/16/24 12/28/24 Unknown History gram/dose oral powder (Miralax) Allergies Allergy/AdvReac Type Severity Reaction Status Date / Time morphine Allergy Anaphylaxis Verified 12/28/24 20:20 Review of Systems 2 Review of Systems: All systems reviewed & are unremarkable except as noted in HPI and below Constitutional: Constitutional: Reports as per HPI and Reports no additional constitutional complaints Eyes: Eyes: Reports as per HPI and Reports no additional eye complaints ENT: Reports system reviewed and no additional complaints, except as documented and Reports as per HPI Cardiovascular: Cardiovascular: Reports as per HPI and Reports no additional cardiovascular complaints Respiratory: Respiratory: Reports as per HPI and Reports no additional respiratory complaints Gastrointestinal: Gastrointestinal: Reports as per HPI Genitourinary: Genitourinary: Reports no additional female genitourinary complaints Musculoskeletal: Musculoskeletal: Reports no additional musculoskeletal complaints Integumentary/Breasts: Skin/Breast: Reports system reviewed and no additional complaints, except as docu Comments: bilateral legs have chronic venous stasis changes. Neurologic: Reports system reviewed and no additional complaints, except as documented and Reports as per HPI Psychiatric: Psychiatric: Reports no additional psychiatric complaints and Reports as per HPI Endocrine: Endocrine: Reports no additional endocrine complaints and Reports as per HPI Hematologic/Lymphatic: Hematologic/Lymphatic: Reports no additional hematologic/lymphatic complaints and Reports as per HPI Allergic/Immunologic: Allergic/Immunologic: Reports no additional allergic/immunologic complaints and Reports as per HPI PMFSH Past Medical History Medical History Presence of internal carotid stent Hypertension Surgical History Surgical History Hx of CABG Family History Family History Father Hypertension Mother Hypertension Family history of malignant neoplasm of brain Sibling Family history of malignant neoplasm Social History Social History Smoking status: Former smoker Tobacco type: cigarettes Smoking end date: 09/21/11 Alcohol intake: current Substance use: never Substance use type: does not use Living arrangements: with family Spiritual care concerns: No Exam 2 Narrative: Blood pressure 180/88. Oxygen saturation of 96% on room air with a respiratory rate of 16. Const: General: no acute distress Orientation/consciousness: patient oriented x3 HENMT: Head: normal to inspection Ears: external ears normal F steve/Nose/Sinus: Normal external nose present Face and sinus: normal facial exam Mouth: Yes Normal oral and palatal mucosa present Throat: posterior oropharynx normal Eyes: Conjunctivae: conjunctivae normal Pupils: Equal, round and reactive pupils present EOM: EOMs intact bilaterally Direct Ophthalmoscopy: no photophobia Neck: Neck: normal visual inspection, no lymphadenopathy and no meningeal signs Chest: Chest palpation & inspection: normal inspection of the chest Resp: Effort & Inspection: normal respiratory effort Auscultation: clear to auscultation bilaterally Cardio: Rate: regular rate Rhythm: regular rhythm GI: GI Palp: Yes Soft to palpation Auscultation: normal bowel sounds O ther: No tenderness/rigidity /rebound. : General: Yes no CVA tenderness Back/Spine/Pelvis: Back: no CVA tenderness Skin: General skin exam: normal color Other: Bilateral legs have chronic venous stasis changes. Bruising over the extremities. Neuro: General: patient oriented x3, moves all extremities, no meningeal signs, no focal motor deficits and CN's II-XI intact bilaterally Cranial nerves: Yes Nystagmus not present Speech: normal speech Extrem: General: normal to inspection and edema Other: Chronic venous stasis changes. Psych: Mental Status: mental status grossly normal Affect: normal affect Attitude: cooperative Course Course Emergency Course: Bilateral leg swelling right knee pain systolic hypertension-- give hydralazine 10 mg IM. Vital Signs Vital signs: Vital Signs Temperature 36.3 C L 12/28/24 20:07 Pulse Rate 81 12/28/24 20:07 Respiratory Rate 17 12/28/24 20:07 Pulse Oximetry 97 12/28/24 20:07 Oxygen Delivery Room Air 12/28/24 20:07 Temperature 36.3 C L 12/28/24 20:07 Pulse Rate 68 12/28/24 21:53 Respiratory Rate 16 12/28/24 21:53 Blood Pressure 195/85 H 12/28/24 21:53 Pulse Oximetry 94 12/28/24 21:53 Oxygen Delivery Room Air 12/28/24 21:53 Medical Decision Making MDM Narrative Medical decision making narrative: leg swelling-- patient had a history of CAD status post CABG. The patient does not have any significant leg swelling. The patient was noted to have trauma troponin and a normal proBNP. EKG did not show any acute findings. Systolic hypertension- patient is noted to have blood pressure as high as 210/96. Will treat with IV hydralazine. Medical Records Medical records reviewed: Yes I reviewed the external patient's medical records. Vital Signs Vital Signs: Vital Signs Temperature 36.3 C L 12/28/24 20:07 Pulse Rate 81 12/28/24 20:07 Respiratory Rate 17 12/28/24 20:07 Pulse Oximetry 97 12/28/24 20:07 Oxygen Delivery Room Air 12/28/24 20:07 Temperature 36.3 C L 12/28/24 20:07 Pulse Rate 68 12/28/24 21:53 Respiratory Rate 16 12/28/24 21:53 Blood Pressure 195/85 H 12/28/24 21:53 Pulse Oximetry 94 12/28/24 21:53 Oxygen Delivery Room Air 12/28/24 21:53 Lab Data 12/28/24 20:52 12/28/24 20:52 Labs: Lab Results 12/28/24 Range/Units 20:52 WBC 3.7 L (4.8-10.8) K/mm3 RBC 3.40 L (4.20-5.40) M/mm3 Hgb 11.9 (11.7-13.8) g/dL Hct 37.7 (35.0-42.0) % MCV 110.9 H (78.0-102.0) fL MCH 35.0 H (27.0-31.0) pg MCHC 31.6 L (32-36) g/dL RDW 12.4 (11.6-14.4) % Plt Count 224 (150-420) K/mm3 MPV 10.0 (9.2-11.8) fl Immature Gran % (Auto) Not Reportable Neut % (Auto) Not Reportable Lymph % (Auto) Not Reportable Fountain % (Auto) Not Reportable Eos % (Auto) Not Reportable Baso % (Auto) Not Reportable Lymph # (Auto) Not Reportable [place]ountain # (Auto) Not Reportable Eos # (Auto) Not Reportable Baso # (Auto) Not Reportable Abs Immat Gran (auto) Not Reportable Absolute Neuts (auto) Not Reportable Absolute Nucleated RBC Not Reportable Total Counted 100 Neutrophils % (Manual) 69 (46-73) % Band Neutrophils % 0 (0-6) % Lymphocytes % (Manual) 20 (18-44) % Monocytes % (Manual) 10 H (3-9) % Eosinophils % (Manual) 1 (1-6) % Basophils % (Manual) 0 (0-1) % Nucleated RBC % Not Reportable Abs Neuts (Manual) 2.55 (1.7-7.2) K/mm3 Abs Lymphs (Manual) 0.74 L (1.1-4.5) K/mm3 Abs Monocytes (Manual) 0.37 (0.1-0.90) K/mm3 Absolute Eos (Manual) 0.03 (0.02-0.50) K/mm3 Abs Basophils (Manual) 0.00 (0-0.1) K/mm3 Platelet Estimate Adequate (Adequate) Schistocytes Not Reportable PT 10.8 (9.50-12.1) Seconds INR 1.0 APTT 28.7 (23.9-30.70) Sec Sodium 141 (136-145) mmol/L Potassium 4.1 (3.5-5.1) mmol/L Chloride 102 (98-108) mmol/L Carbon Dioxide 33 H (21-32) mmol/L Anion Gap 6 (4-12) mmol/L BUN 20 H (7-18) mg/dL Creatinine 1.01 (0.55-1.02) mg/dL Estim Creat Clear Calc 32 ml/min Estimated GFR 52 L (59 - ) Glucose 95 (70-99) mg/dL Calculated Osmolality 294 (285-295) mOsm/kg Lactic Acid 0.9 (0.4-2.0) mmol/L Calcium 9.8 (8.5-10.1) mg/dL Total Bilirubin 0.4 (0.00-1.00) mg/dL AST 16 (15-37) U/L ALT 19 (14-59) U/L Alkaline Phosphatase 129 H (46-116) U/L Troponin I 15.3 (0.00-60.4) ng/L NT-Pro-B Natriuret Pep 404 (0-450) pg/mL Total Protein 6.9 (6.4-8.2) g/dL Albumin 3.6 (3.4-5.0) g/dL ECG Data EKG #1: ECG completion date: 12/28/24 ECG completion time: 20:46 Interpretation: Normal sinus rhythm. Left axis deviation. No ST elevation noted. Poor R- wave progression in anterior leads suggestive of an old anteroseptal infarction. Discharge Plan Discharge Clinical Impression: Leg swelling Hypertension Qualifiers: Hypertension type: unspecified Qualified Code(s): I10 - Essential (primary) hypertension Patient Disposition: Home Condition: Stable Instructions: Antibiotic Form, Leg Edema (ED), Hypertension (ED) Patient Language: Liberian Prescriptions: No Action acetaminophen [Tylenol Arthritis Pain] 650 mg Tablet Extended Release 650 mg PO Q8H mecobalamin (vitamin B12) 500 mcg Tablet,Chewable 500 mcg PO DAILY polyethylene glycol 3350 [Miralax] 17 gram/dose Powder 17 g PO DAILY PRN (Reason: Constipation) atorvastatin 40 mg tablet 40 mg PO DAILY clopidogrel 75 mg tablet 75 mg PO DAILY tramadol 50 mg tablet 50 mg PO PRN PRN (Reason: Pain) spironolactone 25 mg tablet 25 mg PO DAILY carvedilol 3.125 mg tablet 3.125 mg PO BID levothyroxine 75 mcg Tablet 75 mcg PO DAILY famotidine 20 mg tablet 20 mg PO BID pantoprazole 40 mg Tablet,Delayed Release (Dr/Ec) 40 mg PO QAM cholecalciferol (vitamin D3) [Vitamin D3] 25 mcg (1,000 unit) Capsule 25 mcg PO DAILY aspirin 81 mg Capsule 81 mg PO DAILY Follow-up/Referrals: Phil Garcia MD [Primary Care Provider] - Time of Disposition: 22:22
--- NOTE | 2024-12-28 20:20 | PC.NURSE ---
DR VELIZ HAS BEEN NOTIFIED OF ELEVATED BLOOD PRESSURES
--- NOTE | 2024-12-28 20:35 | ECG_ITS ---
Test Date: 2024-12-28 20:46:06 Measurements Intervals [place]ova Rate: 68 P: 0 NM: 0 QRS: -30 QRSD: 79 T: 9 QT: 393 QTc: 418 Interpretive Statements SINUS RHYTHM WITH FREQUENT ATRIAL PREMATURE COMPLEXES ANTEROSEPTAL INFARCT, AGE INDETERMINATE BASELINE ARTIFACT- I, II, III, AVR, AVL, AVF, V1-V6 ABNORMAL ECG No previous ECG available for comparison Electronically Signed On 12-29-2024 05:39:22 CDT by Sathish Hawthorne D.O.
--- NOTE | 2024-12-28 20:40 | PC.NURSE ---
XRAY AT THE BEDSIDE
--- NOTE | 2024-12-28 20:45 | PC.NURSE ---
EKG IN PROGRESS
--- OUTSIDE RECORDS SUMMARY | 2024-12-28 20:46 | XMS_ITS | Encounter Summary ---
Author Organization [facility] Address formerly [facility] [place] [address] Care Team Providers Care Robotics Testing Technician Name Role Phone Phil Garcia MD Primary Care Provider [phone] Guy Su MD Unavailable Unavailabl Dionisio Balderas MD Unavailable [phone] Sb Gil APRN Unavailable [phone] Ban Dickerson MD Unavailable Encounter Details Date Type Department Care Team (Late Contact Info) Description 12/05/2017 Abstract [facility] [address] [place] [address] , Generic ConversionMD Social History [...] Description 05/15/2025 1:00 PM CDT Office Visit [facility] [place] [address] Ban Dickerson MD [address] [place] [address] documented as of this encounter Visit Diagnoses Not on filedocumented in this encounter Care Teams Robotics Testing Technician Relationship Specialty Start Date End Date Phil Garcia MD [address] [place] [address] PCP - General INTERNAL MEDICINE 04/09/16 Guy Su MD [address] [place] [phone] Newsoms Recovery Operator Helper CARDIOVASCULAR DISEASE 04/09/16 10/13/24 Dionisio Puga MD [address] [place] [address] Consulting Physician INTERVENTIONAL CARDIOLOGY 02/15/19 10/13/24 Sb Gil APRN [address] [place] [phone] Nurse Practitioner NURSE PRACTITIONER 02/15/19 10/13/24 Ban Dickerson MD [address] [place] [address] Newsoms Recovery Operator Helper CARDIOVASCULAR DISEASE 10/14/24 documented as of this encounter
--- OUTSIDE RECORDS SUMMARY | 2024-12-28 20:46 | XMS_ITS | Clinical Summary ---
Author Organization [facility] Address [facility] [place] [address] Care Team Providers Care Ice Cream Vendor Name Role Phone Phil Garcia MD Primary Care Provider [phone] Chang Diallo MD Unavailable Allergies Active Allergy [...] Resolved Date SBO (small bowel obstruction ) ([facility]) 04/26/2023 05/15/2023 Encounters Date Type Department Care Team Description 12/20/2024 Telephone [facility] [address] [place] [address] Chang Diallo MD Results 12/15/2024 9:27 AM CDT - 12/15/2024 11:59 PM CDT Hospital Encounter [facility] [address] [place] [address] Chang Diallo MD Discharge Disposition: Home or Self Care (Routine Discharge) 12/15/2024 Travel 12/05/2024 Telephone [facility] [address] [place] [address] Chang Diallo MD Results 11/29/2024 Telephone [facility] [address] [place] [address] Chang Diallo MD Reschedule 11/22/2024 Telephone [facility] [address] [place] [address] Chang Diallo MD Refill Request 11/15/2024 Telephone [facility] [address] [place] [address] Chang Diallo MD Information 11/10/2024 10:30 AM PIPING DESIGNER Telephone [facility] [address] [place] [address] Chang Diallo MD Holter Monitor 11/07/2024 Telephone [facility] [address] [place] [address] Chang Diallo MD Refill Request 11/03/2024 11:30 AM PIPING DESIGNER Office Visit [facility] [address] [address] Chang Diallo MD 11/03/2024 Scan [facility] [address] [place] [address] Scanned, Doc Pccl 11/03/2024 Telephone [facility] [address] [place] [address] Chang Diallo MD Schedule Test 11/02/2024 [facility] [address] [address] Chang Diallo MD Appointment Reminder 11/02/2024 Orders Only [facility] [address] [place] [address] Chang Diallo MD 10/14/2024 Telephone [facility] [address] [place] [address] Chang Diallo MD Appointment Request from Last [...] any clubs o r organizations such as scientology groups, unions, fraternal or athletic groups, or [...] and heating? Not hard at all 04/26/2023 [facility] [place] of Occupat ional Health - Occupational Stress [...] place to sleep or slept in a group home (including now)? No 04/26/2023 Comments Unknown Sex [...] Comments Blood Pressure 181/92 11/03/2024 1:31 PM PIPING DESIGNER Pulse 54 11/03/2024 1:31 PM PIPING DESIGNER Temperature 36.5 C (97.7 F) 05/15/2023 7:40 AM CDT Respiratory Rate 14 11/03/2024 1:31 PM PIPING DESIGNER Oxygen Saturation 99% 11/03/2024 1:31 PM PIPING DESIGNER Inhaled Oxygen Concentration - - Weight 57.6 kg (127 lb) 11/03/2024 1:31 PM PIPING DESIGNER Height 162.6 cm (5' 4 ) 11/03/2024 1:31 PM PIPING DESIGNER Body Mass Index 21.8 11/03/2024 1:31 PM PIPING DESIGNER Plan of Treatment Upcoming Encounters Date Type Department Care Team (Late st Contact Info) Description 05/15/2025 1:00 PM CDT Office Visit [facility] [place] [address] Chang Diallo MD [address] [place], [place] [phone] Health Maintenance Due Date Last Done Comments [...] and discharge planning Lifestyle No Padma Goodson, pneumatic system conveyor operator Procedure Name Priority Date/Time Associated Diagnosis Comments USV CAROTID DUPLEX PAOLA Routine 10:32 AM CDT Bilateral carotid artery stenosis USE ECHOCARDIOGRAM Routine 12/15/2024 10 :32 AM CDT Coronary artery disease involving emmonak coronary artery of emmonak heart without angina pectoris MOBILE CONTINUOUS TELEMETRY Routine 11/24/2024 2:39 PM PIPING DESIGNER Coronary artery disease involving emmonak coronary artery of emmonak heart without angina pectoris ELECTROCARDIOGRAM, TRACING Routine 11/03/2024 Coronary artery disease involving emmonak coronary artery of emmonak heart without angina pectoris LIPID PANEL Routine 03/27/2013 12:00 AM CDT from Last 3 Months or Most Recently Relevant to Health Maintenance Results * USV CAROTID DUPLEX PAOLA (12/15/2024 10:32 AM CDT) Anatomical Region Laterality Modality Neck Ultrasound 12/15/2024 9:46 AM CDT Narrative 12/18/2024 10:25 AM CDT Outreach Carotid Ultrasound Vascular Report Pat.Name: Cheli Fischer Pat.ID: [id number] .Date: 12/15/2024 Refer.MD: Outreach, [facility] Exam Time: 9:46:00 AM Study Type:OUTREACH CAROTID SCAN BILATERAL Height: 64 in Age: 12 1940,84Y Sex: F Sonogrphr: Aris Sampson [facility] [[email or web address]] Pat. Stat.:Outpatient Reason for Study:Bilateral carotid artery stenosis Procedures: Study performed at [facility], [place], [place] and interpreted by [facility]. ++++++++++++++++++++++++++++++++++++ FINDINGS: ++++++++++++++++++++++++++++++++++++ Rt ICA: [...] Ultrasound Vascular Report Pat.Name: Cheli Fischer Pat.ID: [id number] .Date: 12/15/2024 Refer.MD: Dick, [facility] Exam Time: 9:46:00 AM Study Type:OUTREACH CAROTID SCAN BILATERAL Height: 64 in Age: 12 1940,84Y Sex: F Sonogrphr: Adrián Angélicaant [facility] [[email or web address]] Pat. Stat.:Outpatient Reason for Study:Bilateral carotid artery stenosis Procedures: Study performed at [facility], [place], [place] and interpreted by [facility]. ++++++++++++++++++++++++++++++++++++ FINDINGS: ++++++++++++++++++++++++++++++++++++ Rt ICA: [...] AM Chang Diallo M.D. Chang Diallo MD [facility] Final Result * USE ECHOCARDIOGRAM (12/15/2024 10:32 AM CDT) Anatomical Region Laterality Modality Cardiac Ultrasound 12/15/2024 10:1 1 AM CDT Narrative 12/18/2024 10:51 AM CDT Echocardiography Report Pat.Name: Cheli Fischer Pat.ID: [id number] .Date: 12/15/2024 Refer.MD: Dick, [facility] Exam Time: 10:11:00 AM Study Type:OUTREACH Height: 64 in Weight: 125 lb BSA: 1.6 m2 Age: 12 1940,84Y Sex: F Sonogrphr: Sf Pat. Stat.:Outpatient Reason for Study:Coronary artery disease involving emmonak coronary artery of emmonak heart without angina pectoris, CABG Procedures: Study performed at [facility], [place], [place] and interpreted by [facility]. 2D, M-mode, Doppler, Color Flow [...] 12/18/2024 Echocardiography Report Pat.Name: Cheli Fischer Pat.ID: [id number] .Date: 12/15/2024 [facility]: 10:11:00 AM Study Type:DICK Height: 64 in Weight: 125 lb BSA: 1.6 m2 Age: 12 1940,84Y Sex: F Sonogrphr: Sf Pat. Stat.:Outpatient Reason for Study:Coronary artery disease involving emmonak coronary artery of emmonak heart without angina pectoris, CABG Procedures: Study performed at [place], [place] and interpreted by [facility]. 2D, M-mode, Doppler, Color Flow [...] Chang Diallo MD ECHO Final Result * [facility] - [address] [facility] - Today (11/24/2024 2:39 PM PIPING DESIGNER) [facility] CARDIOVASCULAR - 11/24/2024 2:39 PM PIPING DESIGNER Baseline Rhythm * The baseline rhythm was [...] Signed CHANG DIALLO MD, MS, FACC, RVPI [facility] CARDIOVASCULAR [place], [place] us Chang Diallo MD CV VASCULAR ORDERABLES Final Res ult Performing Organization Address City/[facility] Co de Phone Number [employer] CARDIOVASCULAR * NOT [facility] - ELECTROCARDIOGRAM, TRACING [...] 7:36 PM 05/15/2023 6:47 PM Care Teams Ice Cream Vendor Relationship Specialty Start Date End Date Phil Garcia MD [address] [place] [phone] PCP - General INTERNAL MEDICINE 04/09/16 Chang Diallo MD [address] [place] [address] [place] Junior Account Manager CARDIOVASCULAR DISEASE 10/14/24
--- OUTSIDE RECORDS SUMMARY | 2024-12-28 20:46 | XMS_ITS | Encounter Summary ---
Author Organization [facility] Address [facility] [place] [address] Care Team Providers Care Academic Guidance Specialist Name Role Phone Phil Garcia MD Primary Care Provider [phone] Guy Su MD Unavailable Unavailabl Dionisio Balderas MD Unavailable [phone] Sb Gil APRN Unavailable [phone] Ban Dickerson MD Unavailable Encounter Details Date Type Department Care Team (Late Contact Info) Description 05/02/2015 Abstract [facility] [address] [place] [phone] Guy Su MD Social History Tobacco [...] Description 05/15/2025 1:00 PM CDT Office Visit [facility] [place] [address] Ban Dickerson MD [address] [place] [address] documented as of this encounter Visit Diagnoses Not on filedocumented in this encounter Care Teams Academic Guidance Specialist Relationship Specialty Start Date End Date Phil Garcia MD [address] [place] [address] PCP - General INTERNAL MEDICINE 04/09/16 Guy Su MD [address] [place] [address] [place] Service Dispatcher CARDIOVASCULAR DISEASE 04/09/16 10/13/24 Dionisio Puga MD [address] [place] [address] Consulting Physician INTERVENTIONAL CARDIOLOGY 02/15/19 10/13/24 Sb Gil APRN [address] [place] [address] Nurse Practitioner NURSE PRACTITIONER 02/15/19 10/13/24 Ban Dickerson MD [address] [place] [address] [place] Service Dispatcher CARDIOVASCULAR DISEASE 10/14/24 documented as of this encounter
[2024-12-28 20:57] LABS: Hematocrit 37.7 % (35.0-42.0); Hemoglobin 11.9 g/dL (11.7-13.8); Mean Corpuscular HGB Conc 31.6 g/dL (32-36); Mean Corpuscular Volume 110.9 fL (78.0-102.0); Platelet Count Result 224 K/mm3 (150-420); Red Cell Distribution Width 12.4 % (11.6-14.4); White Blood Count 3.7 K/mm3 (4.8-10.8)
[2024-12-28 21:10] LABS: Band Neutrophils Percent 0 % (0-6); Basophils Percent Manual 0 % (0-1); Eosinophils Absolute Manual 0.03 K/mm3 (0.02-0.50); Eosinophils Percent Manual 1 % (1-6); Lymphocytes Absolute Manual 0.74 K/mm3 (1.1-4.5); Lymphocytes Percent Manual 20 % (18-44); Monocytes Absolute Manual 0.37 K/mm3 (0.1-0.90); Monocytes Percent Manual 10 % (3-9); Neutrophils Absolute Manual 2.55 K/mm3 (1.7-7.2); Neutrophils Percent Manual 69 % (46-73); Partial Thromboplastin Time 28.7 Sec (23.9-30.70); Platelet Estimate Adequate (Adequate); Prothrombin Time 10.8 Seconds (9.50-12.1); Total Cells Counted 100
[2024-12-28 21:16] LABS: Lactic Acid Reflex 0.9 mmol/L (0.4-2.0)
[2024-12-28 21:18] LABS: Alanine Aminotransferase 19 U/L (14-59); Albumin Level 3.6 g/dL (3.4-5.0); Alkaline Phosphatase 129 U/L (46-116); Anion Gap 6 mmol/L (4-12); Aspartate Amino Transferase 16 U/L (15-37); Bilirubin,Total 0.4 mg/dL (0.00-1.00); Blood Urea Nitrogen 20 mg/dL (7-18); Calcium 9.8 mg/dL (8.5-10.1); Carbon Dioxide 33 mmol/L (21-32); Chloride 102 mmol/L (98-108); Estimated CRCL calculation 32 ml/min; Estimated Glomerular Filt Rate 52; Glucose 95 mg/dL (70-99); NT Pro B Type Natriuretic Pept 404 pg/mL (0-450); Osmolality Calculated 294 mOsm/kg (285-295); Potassium 4.1 mmol/L (3.5-5.1); Sodium 141 mmol/L (136-145); Total Protein 6.9 g/dL (6.4-8.2)
[2024-12-28 21:19] LABS: Troponin I 15.3 ng/L (0.00-60.4)
[2024-12-28] MEDS: hydrALAZINE HCL 20 MG/ML VIAL 10 MG IM (21:31)
--- NOTE | 2024-12-28 21:36 | PC.NURSE ---
PATIENT AMBULATING TO THE BATHROOM WITH CANE AND AT HER SIDE.
--- NOTE | 2024-12-28 21:47 | PC.NURSE ---
PATIENT AMBULTED BACK TO ROOM WITH AT HER SIDE. PLACED BACK ON MEAT COOLER. CALL LIGHT IN REACH.
== END 2024-12-28 22:28 | disposition home or self-care (01) ==
PROVIDERS: Emergency Provider Internal Medicine Critical Care Medicine; PCP Internal Medicine
DX: M79.89 Other specified soft tissue disorders (principal); E03.9 Hypothyroidism, unspecified; I10 Essential (primary) hypertension; I25.810 Atherosclerosis of coronary artery bypass graft(s) without angina pectoris; Z79.82 Long term (current) use of aspirin; Z79.899 Other long term (current) drug therapy; Z79.891 Long term (current) use of opiate analgesic; Z87.891 Personal history of nicotine dependence
CPT/HCPCS: 36415; 71045; 80053; 83605; 83880; 84484; 85025; 85610; 85730; 93005; 96372; 99284; J0360

== ENCOUNTER 2025-01-19 11:36 | Emergency (ER) | payer MEDICARE, SELFPAY ==
[2025-01-19] VITALS (8 sets, daily range): BP systolic 150–194; BP diastolic 74–108; PULSE 65–93; RESP 16–17; TEMP 36.6; O2SAT 98–100
--- NOTE | ~2025-01-19 | CT_ITS ---
EXAMINATION: CT brain wo con DATE: 01/19/2025 12:05 INDICATION: Fall with head injury TECHNIQUE: Computed tomography (CT) of the head was performed without intravenous contrast. Sagittal and coronal reconstructions were performed. The mA was adjusted according to patient size. Iterative reconstruction technique was employed. The dose-length product was 605.33 mGy-cm. COMPARISON: head CT dated 04/26/2023 FINDINGS: No fracture. No acute intracranial hemorrhage, acute infarction or abnormal extra axial fluid collect ion. There is moderate scattered white matter hypoattenuation consistent with chronic small vessel is chemic disease. Symmetric prominence of the sulci and ventricles consistent with moderate age-appropr iate diffuse cerebral volume loss. No mass/mass effect. Mucosal thickening in the right maxillary sin us. Changes of bilateral intraocular lens replacement. Mastoid air cells and middle ear cavities are clear. Prominent atherosclerotic calcifications at the bilateral carotid siphons. Incompletely visual ized instrumented posterior spinal fusion in the visualized upper cervical spine. IMPRESSION: 1. No fracture or acute intracranial process. 2. Age-related changes the brain including moderate diffuse volume loss and moderate scattered white matter hypoattenuation which likely sequela of chronic small vessel ischemic disease. Reviewed, dictated and finalized at location B. IMPRESSION: 1. No fracture or acute intracranial process. 2. Age-related changes the brain including moderate diffuse volume loss and mod erate scattered white matter hypoattenuation which likely sequela of chronic sm all vessel ischemic disease.
--- NOTE | ~2025-01-19 | CT_ITS ---
EXAMINATION: CT cervical spine wo con DATE: 01/19/2025 12:07 INDICATION: Fall with head and neck injury TECHNIQUE: Computed tomography (CT) of the cervical spine was performed without intravenous contrast. Automated exposure control and iterative reconstruction technique were employed. The dose-length pro duct was 605.33 mGy-cm. COMPARISON: None FINDINGS: Again seen is C1-C5 instrumented posterior spinal fusion with laminectomies and bilateral vertical ro d and lateral mass screw fixation. There is C4-C7 anterior spinal fusion with anterior plate and scre w fixation at C6-C7. There are also solidly bridging anterior endplate osteophytes at C2-C3. Unchange d mild cervical kyphosis and 2 mm anterolisthesis C7 on T1. Stable appearance of chronic C3 compressi on fracture with 20% anterior vertebral body height loss. No acute fractures identified. Moderate dis c height loss with disc calcification at C2-C3 and C3-C4. Additional moderate disc height loss at C7- T1 and mild disc height loss at the visualized cephalad thoracic levels. There is multilevel severe f acet osteoarthritis at C7-T1 and the visualized upper thoracic spine. This along with some associated ossification of the ligamentum flavum contributes to mild central canal stenosis at C7-T1, T1-T2 and T2-T3. There is moderate neural foraminal stenosis bilaterally at C6-C7 and mild neural foraminal st enosis bilaterally at C7-T1. T3-T4. After hepatic calcifications at the palmar carotid bulbs and inte rnal carotid arteries as well as along the bilateral vertebral arteries. Cervical soft tissues are un remarkable. Visualized portion of the upper lungs are clear. IMPRESSION: 1. Stable postoperative changes of C1-C5 and instrumented posterior spinal fusion and C4-C7 anterior spinal fusion, instrumented at C6-C7. 2. Unchanged chronic C3 compression fracture with 20% anterior vertebral body height loss. No acute o sseous abnormality. 3. Moderate cervical and mild upper thoracic spondylosis. Reviewed, dictated and finalized at location B. IMPRESSION: 1. Stable postoperative changes of C1-C5 and instrumented posterior spinal fusi on and C4-C7 anterior spinal fusion, instrumented at C6-C7. 2. Unchanged chronic C3 compression fracture with 20% anterior vertebral body h eight loss. No acute osseous abnormality. 3. Moderate cervical and mild upper thoracic spondylosis.
--- NOTE | ~2025-01-19 | XR_ITS ---
EXAMINATION: XR chest 1V portable DATE: 01/19/2025 12:07 INDICATION: Weakness with fall TECHNIQUE: frontal view of the chest was obtained. COMPARISON: Chest radiograph dated 01/07/25 FINDINGS: The lungs remain clear with no focal airspace opacities, pulmonary edema, pleural effusion or pneumot horax. The cardiomediastinal silhouette is normal. Median sternotomy wires, ostial markers and medias tinal surgical clips consistent with prior coronary artery bypass grafting. Atherosclerotic calcifica tions at the aorta, bilateral subclavian arteries and brachial arteries. Bilateral rotator cuff calci fic tendinitis. Loose osteochondral bodies along the left lung head biceps tendon sheath. IMPRESSION: 1. No acute cardiopulmonary disease. Reviewed, dictated and finalized at location B.
--- NOTE | ~2025-01-19 | CT_ITS ---
EXAMINATION: CT thoracic spine wo con DATE: 01/19/2025 12:07 INDICATION: Fall with head, neck and back injury TECHNIQUE: Computed tomography (CT) of the thoracic spine was performed without intravenous contrast. Automated exposure control and iterative reconstruction technique were employed. The dose-length pro duct was 605.33 mGy-cm. COMPARISON: None FINDINGS: Alignment is normal. Vertebral body heights are normal. No fracture. Partially visualized screw at C7 for C7 anterior spinal fusion as seen on separate cervical spine CT. There are bridging or nearly br idging osteophytes throughout the mid to lower thoracic spine consistent with diffuse idiopathic skel etal hyperostosis (DISH). Discogenic calcification at the majority levels in the mid to lower thoraci c spine. There is moderate disc height loss at C4-C5 through T11-T12 and mild disc height loss at T12 -L1 and L1-L2. There are multiple disc protrusions resulting in mild central canal stenosis at severa l of the lungs in the mid to lower thoracic spine. Disc bulge with mild central canal stenosis at T1- T2. There is multilevel bilateral thoracic facet osteoarthritis, severe in the upper thoracic spine a nd mild to moderate in the mid to lower thoracic spine. There is mild neural foraminal stenosis bilat erally at several levels in the upper thoracic spine as well as bilaterally at T10-T11. Paravertebral soft tissues are unremarkable. Mild discoid atelectasis at the posterior basilar left lower lobe. IMPRESSION: 1. Moderate thoracic spondylosis. Using osteophytes at multiple levels consistent with diffuse idiopa thic skeletal hyperostosis (DISH). No acute osseous abnormality. Reviewed, dictated and finalized at location B. IMPRESSION: 1. Moderate thoracic spondylosis. Using osteophytes at multiple levels consiste nt with diffuse idiopathic skeletal hyperostosis (DISH). No acute osseous abnor mality.
--- NOTE | 2025-01-19 11:42 | ECG_ITS ---
Test Date: 2025-01-19 12:22:59 Measurements Intervals [place] Rate: 88 P: 0 MN: 0 QRS: 120 QRSD: 92 T: 63 QT: 365 QTc: 443 Interpretive Statements sinus rhythm with pacs INCOMPLETE RIGHT BUNDLE BRANCH BLOCK [90+ ms QRS DURATION, TERMINAL R IN V1/V2, 40+ ms S IN I/aVL/V4/V5/V6] POSSIBLE RIGHT VENTRICULAR HYPERTROPHY [SOME/ALL OF: PROMINENT R IN V1, LATE TRANSITION, RAD, STEPHANIE, SSS] Compared to ECG 12/28/2024 20:46:06 Incomplete right bundle-branch block now present Sinus rhythm no longer present Atrial premature complex(es) no longer present Myocardial infarct finding no longer present Electronically Signed On 01-21-2025 11:48:06 CDT by Don Stanley M.D.
[2025-01-19 12:29] LABS: Basophils Absolute Auto 0.01 K/mm3 (0.00-0.10); Basophils Percent Auto 0.2 % (0.0-1.0); Eosinophils Absolute Auto 0.01 K/mm3 (0.02-0.50); Eosinophils Percent Auto 0.2 % (1.0-6.0); Hematocrit 45.4 % (35.0-42.0); Hemoglobin 14.2 g/dL (11.7-13.8); Immature Granulocyte Absolute 0.01 K/mm3 (0.00-0.00); Immature Granulocyte Percent A 0.2 % (0.0-0.0); Lymphocytes Absolute Auto 0.17 K/mm3 (1.10-4.50); Mean Corpuscular HGB Conc 31.3 g/dL (32-36); Mean Corpuscular Hemoglobin 35.1 pg (27.0-31.0); Mean Corpuscular Volume 112.4 fL (78.0-102.0); Mean Platelet Volume 9.8 fl (9.2-11.8); Monocytes Absolute Auto 0.05 K/mm3 (0.10-0.90); Monocytes Percent Auto 1.2 % (2.0-11.0); Neutrophils Absolute Auto 4.03 K/mm3 (1.70-7.20); Neutrophils Percent Auto 94.2 % (50.0-70.0); Platelet Count Result 232 K/mm3 (150-420); Red Blood Count 4.04 M/mm3 (4.20-5.40); Red Cell Distribution Width 13.2 % (11.6-14.4); White Blood Count 4.3 K/mm3 (4.8-10.8)
--- NOTE | 2025-01-19 12:46 | PC.NURSE ---
C-collar removed per Dr. Santiago request.
--- NOTE | 2025-01-19 13:02 | PC.NURSE ---
ERP is aware of fluctuating blood pressures.
[2025-01-19 13:05] LABS: Influenza A QL RT-PCR Negative (Negative); Influenza B QL RT-PCR Negative (Negative); RSV RNA, RT-PCR Negative (Negative); SARS-CoV-2 RNA PCR Negative (Negative)
[2025-01-19 13:32] LABS: Alanine Aminotransferase 25 U/L (6-35); Alkaline Phosphatase 125 U/L (38-126); Anion Gap 13 mmol/L (4-12); Aspartate Amino Transferase 62 U/L (14-36); Bilirubin,Total 0.6 mg/dL (0.2-1.3); Blood Urea Nitrogen 25 mg/dL (7-17); Calcium 10.6 mg/dL (8.4-10.2); Carbon Dioxide 30 mmol/L (22-30); Chloride 99 mmol/L (98-107); Estimated CRCL calculation 36 ml/min; Estimated Glomerular Filt Rate 59; Glucose 120 mg/dL (65-110); Osmolality Calculated 299 mOsm/kg (285-295); Potassium 3.9 mmol/L (3.4-5.0); Sodium 142 mmol/L (137-145)
[2025-01-19 13:38] LABS: Add Urine Microscopic? YES; Appearance Urine Clear (Clear); Bilirubin Urine Negative (Negative); Blood Urine Negative (Negative); Color Urine Yellow (Yellow); Glucose Urine UA Negative (Negative); Ketones Urine Negative (Negative); Leukocyte Esterase Ur Negative LEU/UL (Negative); Nitrate Urine Negative (Negative); Protein Urine Trace (Negative); Specific Grav Ur 1.015 (1.010-1.020); Urobilinogen Urine 0.2 mg/dL (0.2-1.0); pH Urine 6.5 (5.0-8.0)
--- NOTE | 2025-01-19 13:38 | ED_ITS ---
HPI - Fall General Chief Complaint: Fall Stated Complaint: fall Time Seen by Provider: 01/19/25 11:41 Source: patient, family and EMS Mode of arrival: EMS Limitations: physical limitation History of Present Illness HPI Narrative: this is a an 84-year-old female that presents from home via EMS after she had a ground level fall and causing injury to head neck and mid upper back area no other injuries noted patient did not lose consciousness -currently no headache pain is well controlled there is no fever chills no dysuria no chest pain or shortness for nausea vomiting. Patient recently started on medication for dementia. Onset (ago): hour(s) Fall from: standing Fall witnessed: yes, by family Place fall occurred: home Loss of consciousness: none Related Data Home Medications ?Medication ?Instructions ?Recorded ?Confirmed ?Last Taken ?Type aspirin 81 mg capsule 81 mg PO DAILY 08/04/21 12/28/24 Unknown History atorvastatin 40 mg tablet 40 mg PO DAILY 08/04/21 12/28/24 Unknown History carvedilol 3.125 mg tablet 3.125 mg PO BID 08/04/21 12/28/24 05/24/24 07:00 History cholecalciferol (vitamin D3) 25 25 mcg PO DAILY 08/04/21 12/28/24 Unknown History mcg (1,000 unit) capsule (Vitamin D3) clopidogrel 75 mg tablet 75 mg PO DAILY 08/04/21 12/28/24 05/14/24 History famotidine 20 mg tablet 20 mg PO BID 08/04/21 12/28/24 05/24/24 07:00 History levothyroxine 75 mcg tablet 75 mcg PO DAILY 08/04/21 12/28/24 05/24/24 07:00 History pantoprazole 40 mg tablet,delayed 40 mg PO QAM 08/04/21 12/28/24 Unknown History release spironolactone 25 mg tablet 25 mg PO DAILY 08/04/21 12/28/24 Unknown History tramadol 50 mg tablet 50 mg PO PRN PRN Pain 08/04/21 12/28/24 Unknown History acetaminophen 650 mg 650 mg PO Q8H 05/16/24 12/28/24 Unknown History tablet,extended release (Tylenol Arthritis Pain) mecobalamin (vitamin B12) 500 mcg 500 mcg PO DAILY 05/16/24 12/28/24 Unknown History chewable tablet polyethylene glycol 3350 17 17 g PO DAILY PRN Constipation 05/16/24 12/28/24 Unknown History gram/dose oral powder (Miralax) Allergies Allergy/AdvReac Type Severity Reaction Status Date / Time morphine Allergy Anaphylaxis Verified 01/19/25 11:52 Review of Systems 2 Review of Systems: All systems reviewed & are unremarkable except as noted in HPI and below PMFSH Past Medical History Medical History Presence of internal carotid stent Hypertension Surgical History Surgical History Hx of CABG Family History Family History Father Hypertension Mother Hypertension Family history of malignant neoplasm of brain Sibling Family history of malignant neoplasm Social History Social History Smoking status: Former smoker Tobacco type: cigarettes Smoking end date: 09/21/11 Alcohol intake: current Substance use: never Substance use type: does not use Living arrangements: with family Spiritual care concerns: No Exam 2 Const: General: healthy appearing, no acute distress and alert Nutritional Appearance: well nourished Limitations: no limitations HENMT: Head: normal to inspection Face and sinus: normal facial exam M outh: Yes Normal oral and palatal mucosa present Eyes: Pupils: Equal, round and reactive pupils present EOM: EOMs intact bilaterally Direct Ophthalmoscopy: no photophobia Neck: Neck: normal visual inspection, no lymphadenopathy and no meningeal signs Chest: Chest palpation & inspection: normal inspection of the chest Resp: Effort & Inspection: normal respiratory effort Auscultation: clear to auscultation bilaterally Cardio: Rate: regular rate Rhythm: regular rhythm GI: Auscultation: normal bowel sounds : General: Yes bladder normal to palpation Skin: General skin exam: normal color Rashes: no rashes Wounds: no wounds Neuro: General: patient oriented x3, moves all extremities, no meningeal signs, no focal motor deficits and CN's II-XI intact bilaterally Cranial nerves: Yes Nystagmus not present Speech: normal speech Extrem: General: normal to inspection, no clubbing, cyanosis or edema and no pedal edema Course Course Emergency Course: Patient has CT scan of the brain cervical spine and thoracic spine which showed no acute fractures chest x-ray with no abnormalities blood work performed and reviewed with patient family shows no acute abnormalities. Vital Signs Vital signs: Vital Signs Temperature 36.6 C 01/19/25 11:36 Pulse Rate 72 01/19/25 11:36 Respiratory Rate 16 01/19/25 11:36 Blood Pressure 155/108 H 01/19/25 11:36 Pulse Oximetry 100 01/19/25 11:36 Oxygen Delivery Room Air 01/19/25 11:36 Temperature 36.6 C 01/19/25 11:36 Pulse Rate 72 01/19/25 11:36 Respiratory Rate 16 01/19/25 11:36 Blood Pressure 194/74 H 01/19/25 11:46 Pulse Oximetry 100 01/19/25 11:36 Oxygen Delivery Room Air 01/19/25 11:36 MDM - Fall Lab Data 01/19/25 12:22 01/19/25 12:22 Labs: Lab Results 01/19/25 01/19/25 Range/Units 12:22 13:26 WBC 4.3 L (4.8-10.8) K/mm3 RBC 4.04 L (4.20-5.40) M/mm3 Hgb 14.2 H (11.7-13.8) g/dL Hct 45.4 H (35.0-42.0) % MCV 112.4 H (78.0-102.0) fL MCH 35.1 H (27.0-31.0) pg MCHC 31.3 L (32-36) g/dL RDW 13.2 (11.6-14.4) % Plt Count 232 (150-420) K/mm3 MPV 9.8 (9.2-11.8) fl Immature Gran % (Auto) 0.2 H (0.0-0.0) % Neut % (Auto) 94.2 H (50.0-70.0) % Lymph % (Auto) 4.0 L (18.0-42.0) % [place] % (Auto) 1.2 L (2.0-11.0) % Eos % (Auto) 0.2 L (1.0-6.0) % Baso % (Auto) 0.2 (0.0-1.0) % Lymph # (Auto) 0.17 L (1.10-4.50) K/mm3 [place] # (Auto) 0.05 L (0.10-0.90) K/mm3 Eos # (Auto) 0.01 L (0.02-0.50) K/mm3 Baso # (Auto) 0.01 (0.00-0.10) K/mm3 Abs Immat Gran (auto) 0.01 H (0.00-0.00) K/mm3 Absolute Neuts (auto) 4.03 (1.70-7.20) K/mm3 Absolute Nucleated RBC 0.00 (0.00-0.00) K/mm3 Nucleated RBC % 0.0 (0-0.0) % Sodium 142 (137-145) mmol/L Potassium 3.9 (3.4-5.0) mmol/L Chloride 99 (98-107) mmol/L Carbon Dioxide 30 (22-30) mmol/L Anion Gap 13 H (4-12) mmol/L BUN 25 H (7-17) mg/dL Creatinine 0.91 (0.7-1.0) mg/dL Estim Creat Clear Calc 36 ml/min Estimated GFR 59 (59 - ) Glucose 120 H (65-110) mg/dL Calculated Osmolality Pending Lactic Acid Pending Calcium 10.6 H (8.4-10.2) mg/dL Total Bilirubin 0.6 (0.2-1.3) mg/dL AST 62 H (14-36) U/L ALT 25 (6-35) U/L Alkaline Phosphatase 125 (38-126) U/L Troponin I < 0.012 (0.000-0.034) ng/mL C-Reactive Protein Pending NT-Pro-B Natriuret Pep Pending Total Protein 8.0 (6.3-8.2) g/dL Albumin 5.0 (3.5-5.1) g/dL Urine Color Yellow (Yellow) Urine Appearance Clear (Clear) Urine pH 6.5 (5.0-8.0) Ur Specific [place] 1.015 (1.010-1.020) Urine Protein Trace H (Negative) Urine Glucose (UA) Negative (Negative) Urine Ketones Negative (Negative) Ur Blood (Man) Negative (Negative) Urine Nitrate Negative (Negative) Urine Bilirubin Negative (Negative) Urine Urobilinogen 0.2 (0.2-1.0) mg/dL Leukocyte Esterase Rfl Negative (Negative) DONG/UL Urine RBC None seen (0-2) /hpf Urine WBC 0-3 (0-3) /hpf Ur Squamous Epith Cells Few (Few) /hpf Urine Bacteria None seen (None) /hpf Ur Oval Fat Bodies None (None) /lpf Influenza A (RT-PCR) Negative (Negative) Influenza B (RT-PCR) Negative (Negative) RSV (RT-PCR) Negative (Negative) SARS-CoV-2 RNA (RT-PCR) Negative (Negative) Critical Care Time Critical Care Time Critical Care Time: No Discharge Plan Discharge Clinical Impression: Fall Patient Disposition: Home Condition: Stable Instructions: Antibiotic Form, Fall Prevention (ED) Additional Instructions: advised patient to follow-up with primary care physician if symptoms persist or worsen. Advised patient to take her home medications as prescribed. Patient Language: Georgian Prescriptions: No Action acetaminophen [Tylenol Arthritis Pain] 650 mg Tablet Extended Release 650 mg PO Q8H mecobalamin (vitamin B12) 500 mcg Tablet,Chewable 500 mcg PO DAILY polyethylene glycol 3350 [Miralax] 17 gram/dose Powder 17 g PO DAILY PRN (Reason: Constipation) atorvastatin 40 mg tablet 40 mg PO DAILY clopidogrel 75 mg tablet 75 mg PO DAILY tramadol 50 mg tablet 50 mg PO PRN PRN (Reason: Pain) spironolactone 25 mg tablet 25 mg PO DAILY carvedilol 3.125 mg tablet 3.125 mg PO BID levothyroxine 75 mcg Tablet 75 mcg PO DAILY famotidine 20 mg tablet 20 mg PO BID pantoprazole 40 mg Tablet,Delayed Release (Dr/Ec) 40 mg PO QAM cholecalciferol (vitamin D3) [Vitamin D3] 25 mcg (1,000 unit) Capsule 25 mcg PO DAILY aspirin 81 mg Capsule 81 mg PO DAILY Follow-up/Referrals: Phil Garcia MD [Primary Care Provider] - Time of Disposition: 13:47
[2025-01-19 13:42] LABS: Troponin I < 0.012 ng/mL (0.000-0.034)
[2025-01-19 13:43] LABS: RBC Urine None seen /hpf (0-2); WBC Urine 0-3 /hpf (0-3)
[2025-01-19 13:44] LABS: Bacteria Urine None seen /hpf; Squamous Epithelial Cell Urine Few /hpf (Few)
[2025-01-19 14:31] LABS: CRP < 0.5 mg/dL (<1.0)
[2025-01-19 14:51] LABS: NT Pro B Type Natriuretic Pept 601 pg/mL (0-450)
--- NOTE | 2025-01-21 13:16 | PC.NURSE ---
preliminary blood cultures x2 reviewed. no growth to date
--- NOTE | 2025-01-24 12:14 | PC.NURSE ---
final blood culture reports x2 reviewed. no growth. no change in plan of care
== END 2025-01-19 13:55 | disposition home or self-care (01) ==
PROVIDERS: Emergency Provider Emergency Medicine; PCP Internal Medicine
DX: S09.90XA Unspecified injury of head, initial encounter (principal); S19.9XXA Unspecified injury of neck, initial encounter; S29.9XXA Unspecified injury of thorax, initial encounter; I10 Essential (primary) hypertension; F03.90 Unspecified dementia, unspecified severity, without behavioral disturbance, psychotic disturbance, mood disturbance, and anxiety; Z79.899 Other long term (current) drug therapy; Z87.891 Personal history of nicotine dependence; Z20.822 Contact with and (suspected) exposure to COVID-19; W18.30XA Fall on same level, unspecified, initial encounter
CPT/HCPCS: 36415; 70450; 71045; 72125; 72128; 80053; 81001; 83605; 83880; 84484; 85025; 86140; 87040; 87637; 93005; 99284

== ENCOUNTER 2025-01-19 16:53 | Observation (INO) | payer MEDICARE, SELFPAY ==
[2025-01-19] VITALS (10 sets, daily range): BP systolic 145–205; BP diastolic 83–108; PULSE 71–92; RESP 16–20; TEMP 36.6–36.9; O2SAT 96–99; BMI 21.7
--- NOTE | ~2025-01-19 | XR_ITS ---
XR abdomen/kub 1V INDICATION: Evaluate NG tube position. TECHNIQUE: Limited KUB perform for evaluating NG tube . COMPARISON: 09/2019 FINDINGS: NG tube tip in the stomach. Visualized bowel gas pattern is unremarkable.Severe lumbar spo ndylosis. There is atherosclerosis. IMPRESSION: 1: NG tube tip in the stomach. : 1: Reviewed, dictated and finalized at location A.
--- NOTE | ~2025-01-19 | CT_ITS ---
EXAMINATION: CT chest abdomen pelvis wo con DATE: 01/20/2025 09:53 INDICATION: Nausea, vomiting and diarrhea. TECHNIQUE: Computed tomography (CT) of the chest, abdomen, and pelvis was performed without intraveno us contrast. Automated exposure control and iterative reconstruction technique were employed. The dos e-length product was 343.82 mGy-cm. COMPARISON: 04/26/2023 and 12/09/2022 FINDINGS: CHEST CT: Mild discoid atelectasis in the right lower lobe. Likely small regions of small groundglass opacities and centrilobular nodules with tree-in-bud appearance in the superior segment of the bilateral lower lobes suggesting endobronchial spread of disease which could be aspiration, pneumonia or pulmonary h emorrhage. Small left pleural effusion. Mild cardiomegaly. Atherosclerotic coronary artery calcificat ion. Aortic valve calcification. Postoperative change of prior median sternotomy and coronary artery bypass grafting. No pericardial effusion. Ascending thoracic aortic aneurysm measuring up to 4.5 cm i n maximal diameter. Enlargement of the central pulmonary arteries consistent with pulmonary arterial hypertension. No pathologically enlarged thoracic lymphadenopathy. Severe thoracic spondylosis. C6-C7 anterior spinal fusion with anterior plate-screw fixation. Bilateral rotator cuff calcific tendiniti s. ABDOMEN/PELVIS CT: Multiple gallstones in the normal incompletely distended gallbladder. Liver, spleen, pancreas and rig ht adrenal gland are normal. Unchanged 1.5 cm low-attenuation left adrenal adenoma. There is calcifie d atherosclerosis of the aorta and many of the other arteries including multiple renal arteries at th e bilateral renal laurie. Bilateral kidneys are otherwise unremarkable. Bladder and uterus are unremark able. Again seen are low-attenuation cystic lesions at the left ovary which are difficult to distingu cristina on the noncontrast imaging. Again seen is an intestinal malrotation with the colon, in the left a bdomen and the jejunum extending caudally into the right lower quadrant. There is dilation of fluid-f illed jejunum in the right abdomen with transition point in the right lower quadrant suspicious for s mall bowel obstruction. There does appear to be some wall thickening of the small bowel and different ial would include ileus in the setting of an enteritis which would include ischemic given extensive v ascular disease. Prior bowel surgery with anastomotic suture line along a loop of bowel in the anteri or pelvis. No abscess, free intraperitoneal gas or fluid. Moderate lumbar spondylosis. Chondrocalcino sis and moderate right-sided and mild left-sided hip osteoarthritis. IMPRESSION: 1. Groundglass opacities and small centrilobular nodules with tree-in-bud pattern in the superior seg ments of the bilateral lower lobes which could be due to aspiration, pneumonia or pulmonary hemorrhag e. 2. Small left pleural effusion. 3. Intestinal malrotation with dilation of the jejunum which extends caudally to a transition point i n the right lower quadrant suspicious for small bowel obstruction. There are some wall thickening of the dilated bowel which could be related to the obstruction but also raises the possibility of an ile us in setting of enteritis which could be infectious, inflammatory or ischemic in etiology. 4. Ascending thoracic aortic aneurysm measuring up to 4.5 cm in diameter. 5. Extensive atherosclerotic calcifications along the aorta and many of the other arteries in the haja st, abdomen and pelvis including prominently at the origin of the celiac axis, superior mesenteric an d bilateral renal arteries. Unable to assess for degree of stenosis on noncontrast imaging. 6. A few cystic-appearing lesions at the left adnexa which are difficult to distinguish on the noncon trast imaging. Consider nonemergent follow-up pelvic ultrasound for further evaluation. Reviewed, dictated and finalized at location A. IMPRESSION: 1. Groundglass opacities and small centrilobular nodules with tree-in-bud patte rn in the superior segments of the bilateral lower lobes which could be due to aspiration, pneumonia or pulmonary hemorrhage. 2. Small left pleural effusion. 3. Intestinal malrotation with dilation of the jejunum which extends caudally t o a transition point in the right lower quadrant suspicious for small bowel obs truction. There are some wall thickening of the dilated bowel which could be re lated to the obstruction but also raises the possibility of an ileus in setting of enteritis which could be infectious, inflammatory or ischemic in etiology. 4. Ascending thoracic aortic aneurysm measuring up to 4.5 cm in diameter. 5. Extensive atherosclerotic calcifications along the aorta and many of the oth er arteries in the chest, abdomen and pelvis including prominently at the origi n of the celiac axis, superior mesenteric and bilateral renal arteries. Unable to assess for degree of stenosis on noncontrast imaging. 6. A few cystic-appearing lesions at the left adnexa which are difficult to dis tinguish on the noncontrast imaging. Consider nonemergent follow-up pelvic ultr asound for further evaluation.
--- OUTSIDE RECORDS SUMMARY | 2025-01-19 17:00 | XMS_ITS | Encounter Summary ---
Author Organization [facility] Address [facility] [place] [address] Care Team Providers Care It Trainee Name Role Phone Phil Garcia MD Primary Care Provider [phone] Guy Su MD Unavailable Unavailabl Dionisio Balderas MD Unavailable [phone] Sb Gil APRN Unavailable [phone] Ban Dickerson MD Unavailable Encounter Details Date Type Department Care Team (Late Contact Info) Description 05/02/2015 Abstract [facility] [address] [place] [phone] Guy Su MD Social History Tobacco [...] Description 05/15/2025 1:00 PM CDT Office Visit [facility] [place] [address] Ban Dickerson MD [address] [place] [address] documented as of this encounter Visit Diagnoses Not on filedocumented in this encounter Care Teams It Trainee Relationship Specialty Start Date End Date Phil Garcia MD [address] [place] [address] PCP - General INTERNAL MEDICINE 04/09/16 Guy Su MD [address] [place] [address] [place] Security Installer CARDIOVASCULAR DISEASE 04/09/16 10/13/24 Dionisio Puga MD [address] [place] [address] Consulting Physician INTERVENTIONAL CARDIOLOGY 02/15/19 10/13/24 Sb Gil APRN [address] [place] [address] Nurse Practitioner NURSE PRACTITIONER 02/15/19 10/13/24 Ban Dickerson MD [address] [place] [address] [employer] [employer] Installer CARDIOVASCULAR DISEASE 10/14/24 documented as of this encounter
--- OUTSIDE RECORDS SUMMARY | 2025-01-19 17:00 | XMS_ITS | Encounter Summary ---
Author Organization [facility] Address [facility] [place] [address] Care Team Providers Care Wanigan Clerk Name Role Phone Phil Garcia MD Primary Care Provider [phone] Guy Su MD Unavailable Unavailabl Dionisio Balderas MD Unavailable [phone] Sb Gil APRN Unavailable [phone] Ban Dickerson MD Unavailable Encounter Details Date Type Department Care Team (Late Contact Info) Description 12/05/2017 Abstract [facility] [address] [place] [address] , Generic ConversionMD Social History [...] Description 05/15/2025 1:00 PM CDT Office Visit [facility] [place] [address] Ban Dickerson MD [address] [place] [address] documented as of this encounter Visit Diagnoses Not on filedocumented in this encounter Care Teams [place] Clerk Relationship Specialty Start Date End Date Phil Garcia MD [address] [place] [address] PCP - General INTERNAL MEDICINE 04/09/16 Guy Su MD [address] [place] [phone] [place] Sandblaster Supervisor CARDIOVASCULAR DISEASE 04/09/16 10/13/24 Dionisio Puga MD [address] [place] [address] Consulting Physician INTERVENTIONAL CARDIOLOGY 02/15/19 10/13/24 Sb Gil APRN [address] [place] [phone] Nurse Practitioner NURSE PRACTITIONER 02/15/19 10/13/24 Ban Dickerson MD [address] [place] [address] [place] Sandblaster Supervisor CARDIOVASCULAR DISEASE 10/14/24 documented as of this encounter
--- OUTSIDE RECORDS SUMMARY | 2025-01-19 17:00 | XMS_ITS | Clinical Summary ---
Author Organization [facility] Address [facility] [place] [address] Care Team Providers Care Sleever Name Role Phone Phil Garcia MD Primary Care Provider [phone] Chang Diallo MD Unavailable Allergies Active Allergy [...] Resolved Date SBO (small bowel obstruction ) ([facility]) 04/26/2023 05/15/2023 Encounters Date Type Department Care Team Description 12/20/2024 Telephone [facility] [address] [place] [address] Chang Diallo MD Results 12/15/2024 9:27 AM CDT - 12/15/2024 11:59 PM CDT Hospital Encounter [facility] [address] [place] [address] Chang Diallo MD Discharge Disposition: Home or Self Care (Routine Discharge) 12/15/2024 Travel 12/05/2024 Telephone [facility] [address] [place] [address] Chang Diallo MD Results 11/29/2024 Telephone [facility] [address] [place] [address] Chang Diallo MD Reschedule 11/22/2024 Telephone [facility] [address] [place] [address] Chang Diallo MD Refill Request 11/15/2024 Telephone [facility] [address] [place] [address] Chang Diallo MD Information 11/10/2024 10:30 AM GORE INSERTER Telephone [facility] [address] [place] [address] Chang Diallo MD Holter Monitor 11/07/2024 Telephone [facility] [address] [place] [address] Chang Diallo MD Refill Request 11/03/2024 11:30 AM GORE INSERTER Office Visit [facility] [address] [address] Chang Diallo MD Heart Problem 11/03/2024 Scan [facility] [address] [place] [address] Scanned, Doc Pccl 11/03/2024 Telephone [facility] [address] [place] [address] Chang Diallo MD Schedule Test 11/02/2024 [facility] [address] [address] Chang Diallo MD Appointment Reminder 11/02/2024 Orders Only [facility] [address] [place] [address] Chang Diallo MD from Last 3 Months Family History Medical [...] Never 04/26/2023 How often do you attend [facility] or sikhism services? Never 04/26/2023 Do you belong to any clubs o r organizations such as judaism groups, unions, fraternal or athletic groups, or [...] and heating? Not hard at all 04/26/2023 [facility] of Occupat ional Health - Occupational Stress [...] place to sleep or slept in a long term (including now)? No 04/26/2023 Comments Unknown Sex [...] Comments Blood Pressure 181/92 11/03/2024 1:31 PM GORE INSERTER Pulse 54 11/03/2024 1:31 PM GORE INSERTER Temperature 36.5 C (97.7 F) 05/15/2023 7:40 AM CDT Respiratory Rate 14 11/03/2024 1:31 PM GORE INSERTER Oxygen Saturation 99% 11/03/2024 1:31 PM GORE INSERTER Inhaled Oxygen Concentration - - Weight 57.6 kg (127 lb) 11/03/2024 1:31 PM GORE INSERTER Height 162.6 cm (5' 4 ) 11/03/2024 1:31 PM GORE INSERTER Body Mass Index 21.8 11/03/2024 1:31 PM GORE INSERTER Plan of Treatment Upcoming Encounters Date Type Department Care Team (Late st Contact Info) Description 05/15/2025 1:00 PM CDT Office Visit [facility] [place] [address] Chang Diallo MD [address] [place] [address] Health Maintenance Due Date Last Done Comments Annual Medicare Wellness Visit 2006 Dexa Scan (General) 2006 ASCVD LDL 03/27/2014 03/27/2013 Zoster Vaccines (2 of 2) 09/23/2019 07/29/2019 COVID-19 Vaccine ( season) 2024 06/17/2024, 07/28/2023, 06/19/2022, Additional history exists DTaP, Tdap and Td Vaccines (2 - Td or Tdap) 07/18/2034 07/18/2024 Pneumococcal Vaccine: 50+ Years Completed 07/21/2016, 10/28/2012, 08/10/2011 RSV Immunization [...] transitions and discharge planning Lifestyle No Padma Goodosn RN Procedures Procedure Name Priority Date/Time Associated Diagnosis Comments USV CAROTID DUPLEX PAOLA Routine 10:32 AM CDT Bilateral carotid artery stenosis USE ECHOCARDIOGRAM Routine 12/15/2024 10 :32 AM CDT 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 MOBILE CONTINUOUS TELEMETRY Routine 11/24/2024 2:39 PM GORE INSERTER 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 ELECTROCARDIOGRAM, TRACING Routine 11/03/2024 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 LIPID PANEL Routine 03/27/2013 12:00 AM CDT from Last 3 Months or Most Recently Relevant to Health Maintenance Results * USV CAROTID DUPLEX PAOLA (12/15/2024 10:32 AM CDT) Anatomical Region Laterality Modality Neck Ultrasound 12/15/2024 9:46 AM CDT Narrative 12/18/2024 10:25 AM CDT Outreach Carotid Ultrasound Vascular Report Pat.Name: Cheli Fischer cassia Pat.ID: [id number] .Date: 12/15/2024 Refer.MD: Outreach, [facility] Exam Time: 9:46:00 AM Study Type:OUTREACH CAROTID SCAN BILATERAL Height: 64 in Age: 12 1940,84Y Sex: F Sonogrphr: Aris Sampson [facility] Pat. Stat.:Outpatient Reason for Study:Bilateral carotid artery stenosis Procedures: Study performed at [facility], [place], [place] and interpreted by [facility]. ++++++++++++++++++++++++++++++++++++ FINDINGS: ++++++++++++++++++++++++++++++++++++ Rt ICA: [...] Ultrasound Vascular Report Pat.Name: Cheli Fischer Pat.ID: [id number] St.Date: 12/15/2024 [facility]: 9:46:00 AM Study Type:OUTREACH CAROTID SCAN BILATERAL Height: 64 in Age: 12 1940,84Y Sex: F Sonogrphr: Buddy Sampsonsavanah [facility] Pat. Stat.:Outpatient Reason for Study:Bilateral carotid artery stenosis Procedures: Study performed at [place], [place] and interpreted by [facility]. ++++++++++++++++++++++++++++++++++++ FINDINGS: ++++++++++++++++++++++++++++++++++++ Rt ICA: [...] Signature> 12/18/2024 10:25 AM Chang Diallo M.D. us Chang Diallo MD VAS Final Result * USE ECHOCARDIOGRAM (12/15/2024 10:32 AM CDT) Anatomical Region Laterality Modality Cardiac Ultrasound 12/15/2024 10:1 1 AM CDT Narrative 12/18/2024 10:51 AM CDT Echocardiography Report Pat.Name: Cheli Fischer Pat.ID: [id number] .Date: 12/15/2024 Refer.MD: Whit, [facility] Exam Time: 10:11:00 AM Study Type:[facility] Height: 64 in Weight: 125 lb BSA: 1.6 m2 Age: 12 1940,84Y Sex: F Sonogrphr: Sf Pat. 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 2D, M-mode, Doppler, Color Flow [...] - 12/18/2024 Echocardiography Report Pat.Name: Cheli Fischer cassia Li.ID: [id number] .Date: 12/15/2024 Refer.MD: Whit, [facility] Exam Time: 10:11:00 AM Study Type:OUTREACH Height: 64 in Weight: 125 lb BSA: 1.6 m2 Age: 12 1940,84Y Sex: F Sonogrphr: Sf Pat. 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 2D, M-mode, Doppler, Color Flow [...] Chang Diallo MD ECHO Final Result * CLINIC - [id number] MCT - Today (11/24/2024 2:39 PM GORE INSERTER) [facility] - 11/24/2024 2:39 PM GORE INSERTER Baseline Rhythm * The baseline rhythm was [...] Signed CHANG DIALLO MD, MS, FACC, RVPI [place] [facility], [place] us Chang Diallo MD CV VASCULAR ORDERABLES Final Res ult [facility] * NOT [facility] - ELECTROCARDIOGRAM, TRACING [...] 7:36 PM 05/15/2023 6:47 PM Care Teams Sleever Relationship Specialty Start Date End Date Phil Garcia MD [address] [place] [address] PCP - General INTERNAL MEDICINE 04/09/16 Chang Diallo MD [address] [place] [address] [place] Cd Mixer Helper CARDIOVASCULAR DISEASE 10/14/24
--- NOTE | 2025-01-19 17:15 | ED_ITS ---
HPI - Nausea/Vomiting/Diarrhea General Chief complaint: Nausea/Vomiting/Diarrhea Stated complaint: vomiting and diarrhea Time Seen by Provider: 01/19/25 17:02 Source: patient and family Mode of arrival: wheelchair Limitations: physical limitation History of Present Illness HPI Narrative: this is a an 84-year-old female that returns to the emergency department after she was discharged earlier this morning after she had a ground level fall and had scans performed of the brain cervical spine and thoracic and chest x-ray which were all within no acute abnormalities. Patient had a complete workup at that time including blood work. , patient returns because of beginning nausea vomiting and diarrhea with no abdominal pain. Patient was discharged earlier with a blood pressure 1 over 105, currently with pressure 145/88 there is no chest pain no shortness of breath no headache no blurry vision no flank pain no dysuria or hematuria. MD elicited complaint: nausea, vomiting and diarrhea Onset (ago): hour(s) Description of vomiting: watery Related Data Home Medications ?Medication ?Instructions ?Recorded ?Confirmed ?Last Taken ?Type aspirin 81 mg capsule 81 mg PO DAILY 08/04/21 12/28/24 Unknown History atorvastatin 40 mg tablet 40 mg PO DAILY 08/04/21 12/28/24 Unknown History carvedilol 3.125 mg tablet 3.125 mg PO BID 08/04/21 12/28/24 05/24/24 07:00 History cholecalciferol (vitamin D3) 25 25 mcg PO DAILY 08/04/21 12/28/24 Unknown History mcg (1,000 unit) capsule (Vitamin D3) clopidogrel 75 mg tablet 75 mg PO DAILY 08/04/21 12/28/24 05/14/24 History famotidine 20 mg tablet 20 mg PO BID 08/04/21 12/28/24 05/24/24 07:00 History levothyroxine 75 mcg tablet 75 mcg PO DAILY 08/04/21 12/28/24 05/24/24 07:00 History pantoprazole 40 mg tablet,delayed 40 mg PO QAM 08/04/21 12/28/24 Unknown History release spironolactone 25 mg tablet 25 mg PO DAILY 08/04/21 12/28/24 Unknown History tramadol 50 mg tablet 50 mg PO TID PRN Pain 08/04/21 12/28/24 Unknown History acetaminophen 650 mg 650 mg PO Q8H 05/16/24 12/28/24 Unknown History tablet,extended release (Tylenol Arthritis Pain) mecobalamin (vitamin B12) 500 mcg 500 mcg PO DAILY 05/16/24 12/28/24 Unknown History chewable tablet polyethylene glycol 3350 17 17 g PO DAILY PRN Constipation 05/16/24 12/28/24 Unknown History gram/dose oral powder (Miralax) magnesium 100 mg tablet 500 mg PO DAILY 01/19/25 Unknown History memantine 5 mg tablet 10 mg PO BID 01/19/25 Unknown History Allergies Allergy/AdvReac Type Severity Reaction Status Date / Time morphine Allergy Anaphylaxis Verified 01/19/25 17:06 Review of Systems Review of Systems: All systems reviewed & are unremarkable except as noted in HPI and below PMFSH Past Medical History Medical History Presence of internal carotid stent Hypertension Surgical History Surgical History Hx of CABG Family History Family History Father Hypertension Mother Hypertension Family history of malignant neoplasm of brain Sibling Family history of malignant neoplasm Social History Social History Smoking status: Former smoker Tobacco type: cigarettes Smoking end date: 09/21/11 Alcohol intake: current Substance use: never Substance use type: does not use Living arrangements: with family Spiritual care concerns: No Exam Const: General: healthy appearing and no acute distress Nutritional Appearance: well nourished Limitations: no limitations HENMT: Head: normal to inspection Eyes: Conjunctivae: conjunctivae normal Pupils: Equal, round and reactive pupils present EOM: EOMs intact bilaterally Direct Ophthalmoscopy: no photophobia Neck: Neck: normal visual inspection Chest: Chest palpation & inspection: normal inspection of the chest Resp: Effort & Inspection: normal respiratory effort Auscultation: clear to auscultation bilaterally Cardio: Rate: regular rate Rhythm: abnormal rhythm GI: GI Palp: Yes Soft to palpation Auscultation: normal bowel sounds : General: Yes bladder normal to palpation Skin: General skin exam: normal color Rashes: no rashes Wounds: no wounds Neuro: General: patient oriented x3 Cranial nerves: Yes Nystagmus not present Extrem: General: normal to inspection, no clubbing, cyanosis or edema and no pedal edema Course Course Emergency Course: Patient started on IV fluids and was given IV Zofran labs reviewed with patient and , patient had CT scan of the brain, cervical spine, thoracic spine which showed no acute abnormalities, chest x-ray showed no acute cardiopulmonary abnormalities. Patient returns her blood pressure does fluctuate and has been as high as 205 systolic blood pressure reading 145 systolic. Admit observation for gastroenteritis and dehydration. Vital Signs Vital signs: Vital Signs Temperature 36.9 C 01/19/25 16:53 Pulse Rate 92 01/19/25 16:53 Respiratory Rate 18 01/19/25 16:53 Blood Pressure 159/108 H 01/19/25 16:53 Pulse Oximetry 97 01/19/25 16:53 Oxygen Delivery Room Air 01/19/25 16:53 Temperature 36.9 C 01/19/25 16:53 Pulse Rate 92 01/19/25 16:53 Respiratory Rate 18 01/19/25 16:53 Blood Pressure 159/108 H 01/19/25 16:53 Pulse Oximetry 97 01/19/25 16:53 Oxygen Delivery Room Air 01/19/25 16:53 Critical Care Time Critical Care Time Critical Care Time: No Discharge Plan Discharge Clinical Impression: Gastroenteritis, Acute dehydration Nausea & vomiting Qualifiers: Vomiting type: unspecified Qualified Code(s): R11.2 - Nausea with vomiting, unspecified Patient Disposition: Acute Care Hospital Condition: Guarded Prognosis Patient Language: [place]se Prescriptions: No Action memantine 5 mg tablet 10 mg PO BID magnesium 100 mg tablet 500 mg PO DAILY acetaminophen [Tylenol Arthritis Pain] 650 mg Tablet Extended Release 650 mg PO Q8H mecobalamin (vitamin B12) 500 mcg Tablet,Chewable 500 mcg PO DAILY polyethylene glycol 3350 [Miralax] 17 gram/dose Powder 17 g PO DAILY PRN (Reason: Constipation) atorvastatin 40 mg tablet 40 mg PO DAILY clopidogrel 75 mg tablet 75 mg PO DAILY tramadol 50 mg tablet 50 mg PO TID PRN (Reason: Pain) spironolactone 25 mg tablet 25 mg PO DAILY carvedilol 3.125 mg tablet 3.125 mg PO BID levothyroxine 75 mcg Tablet 75 mcg PO DAILY famotidine 20 mg tablet 20 mg PO BID pantoprazole 40 mg Tablet,Delayed Release (Dr/Ec) 40 mg PO QAM cholecalciferol (vitamin D3) [Vitamin D3] 25 mcg (1,000 unit) Capsule 25 mcg PO DAILY aspirin 81 mg Capsule 81 mg PO DAILY Follow-up/Referrals: Phil Garcia MD [Primary Care Provider] - Time of Disposition: 17:22
[2025-01-19] MEDS: ONDANSETRON INJ 4 MG/2 ML VIAL IV PUSH ×2 (17:31→22:26)
[2025-01-19] MEDS: SODIUM CHLORIDE 0.9% IV 1,000 ML 999 ML IV CONT (17:31)
--- OUTSIDE RECORDS SUMMARY | 2025-01-19 17:39 | XMS_ITS | Encounter Summary ---
Author Organization [facility] Address [facility] [place] [address] Care Team Providers Care Aluminum Pourer Name Role Phone Phil Garcia MD Primary Care Provider [phone] Guy Su MD Unavailable Unavailabl Dionisio Balderas MD Unavailable [phone] Sb Gil APRN Unavailable [phone] Ban Dickerson MD Unavailable Encounter Details Date Type Department Care Team (Late Contact Info) Description 05/02/2015 Abstract [facility] [address] [place] [phone] Guy Su MD Social History Tobacco [...] Description 05/15/2025 1:00 PM CDT Office Visit [facility] [place] [address] Ban Dickerson MD [address] [place] [phone] documented as of this encounter Visit Diagnoses Not on filedocumented in this encounter Care Teams Aluminum Pourer Relationship Specialty Start Date End Date Phil Garcia MD [address] [place] [address] PCP - General INTERNAL MEDICINE 04/09/16 Guy Su MD [address] [place] [address] [place] Lead Inspector CARDIOVASCULAR DISEASE 04/09/16 10/13/24 Dionisio Puga MD [address] [place] [address] Consulting Physician INTERVENTIONAL CARDIOLOGY 02/15/19 10/13/24 Sb Gil APRN [address] [place] [address] Nurse Practitioner NURSE PRACTITIONER 02/15/19 10/13/24 Ban Dickerson MD [address] [place] [address] [place] Lead Inspector CARDIOVASCULAR DISEASE 10/14/24 documented as of this encounter
--- OUTSIDE RECORDS SUMMARY | 2025-01-19 17:39 | XMS_ITS | Encounter Summary ---
Author Organization [facility] Address [facility] [place] [address] Care Team Providers Care Sign Builder Name Role Phone Phil Garcia MD Primary Care Provider [phone] Guy uS MD Unavailable Unavailabl Dionisio Balderas MD Unavailable [phone] Sb Gil APRN Unavailable [phone] Ban Dickerson MD Unavailable Encounter Details Date Type Department Care Team (Late Contact Info) Description 12/05/2017 Abstract [facility] [address] [place] [address] , Generic ConversionMD Social History [...] Description 05/15/2025 1:00 PM CDT Office Visit [facility] [place] [address] Ban Dickerson MD [address] [place] [address] documented as of this encounter Visit Diagnoses Not on filedocumented in this encounter Care Teams Sign Builder Relationship Specialty Start Date End Date Phil Garcia MD [address] [place] [address] PCP - General INTERNAL MEDICINE 04/09/16 Guy Su MD [address] [place] [phone] [place] Counter Maker CARDIOVASCULAR DISEASE 04/09/16 10/13/24 Dionisio Puga MD [address] [place] [address] Consulting Physician INTERVENTIONAL CARDIOLOGY 02/15/19 10/13/24 Sb Gil APRN [address] [place] [phone] Nurse Practitioner NURSE PRACTITIONER 02/15/19 10/13/24 Ban Dickerson MD [address] [place] [address] [place] Counter Maker CARDIOVASCULAR DISEASE 10/14/24 documented as of this encounter
--- OUTSIDE RECORDS SUMMARY | 2025-01-19 17:39 | XMS_ITS | Clinical Summary ---
Author Organization [facility] Address [facility] [place] [address] Care Team Providers Care Pie Crimping Machine Operator Name Role Phone Phil Garcia MD Primary Care Provider [phone] Chang Diallo MD Unavailable Allergies Active Allergy [...] Resolved Date SBO (small bowel obstruction ) ([facility]) 04/26/2023 05/15/2023 Encounters Date Type Department Care Team Description 12/20/2024 Telephone [facility] [address] [place] [address] Chang Diallo MD Results 12/15/2024 9:27 AM CDT - 12/15/2024 11:59 PM CDT Hospital Encounter [facility] [address] [place] [address] Chang Diallo MD Discharge Disposition: Home or Self Care (Routine Discharge) 12/15/2024 Travel 12/05/2024 Telephone [facility] [address] [place] [address] Chang Diallo MD Results 11/29/2024 Telephone [facility] [address] [place] [address] Chang Diallo MD Reschedule 11/22/2024 Telephone [facility] [address] [place] [address] Chang Diallo MD Refill Request 11/15/2024 Telephone [facility] [address] [place] [address] Chang Diallo MD Information 11/10/2024 10:30 AM DYE RANGE TENDER Telephone [facility] [address] [place] [address] Chang Diallo MD Holter Monitor 11/07/2024 Telephone [facility] [address] [place] [address] Chang Diallo MD Refill Request 11/03/2024 11:30 AM DYE RANGE TENDER Office Visit [facility] [address] [address] Chang Diallo MD Heart Problem 11/03/2024 Scan [facility] [address] [place] [address] Scanned, Doc Pccl 11/03/2024 Telephone [facility] [address] [place] [address] Chang Diallo MD Schedule Test 11/02/2024 [facility] [address] [address] Chang Diallo MD Appointment Reminder 11/02/2024 Orders Only [facility] [address] [place] [address] Chang Diallo MD from Last 3 Months [...] Never 04/26/2023 How often do you attend [facility] or baptism services? Never 04/26/2023 Do you belong to any clubs o r organizations such as samaritan groups, unions, fraternal or athletic groups, or [...] and heating? Not hard at all 04/26/2023 [facility] [place] of Occupat ional Health - Occupational Stress [...] place to sleep or slept in a half-way (including now)? No 04/26/2023 Comments Unknown Sex [...] Comments Blood Pressure 181/92 11/03/2024 1:31 PM DYE RANGE TENDER Pulse 54 11/03/2024 1:31 PM DYE RANGE TENDER Temperature 36.5 C (97.7 F) 05/15/2023 7:40 AM CDT Respiratory Rate 14 11/03/2024 1:31 PM DYE RANGE TENDER Oxygen Saturation 99% 11/03/2024 1:31 PM DYE RANGE TENDER Inhaled Oxygen Concentration - - Weight 57.6 kg (127 lb) 11/03/2024 1:31 PM DYE RANGE TENDER Height 162.6 cm (5' 4 ) 11/03/2024 1:31 PM DYE RANGE TENDER Body Mass Index 21.8 11/03/2024 1:31 PM DYE RANGE TENDER Plan of Treatment Upcoming Encounters Date Type Department Care Team (Late st Contact Info) Description 05/15/2025 1:00 PM CDT Office Visit [facility] [place] [address] Chang Diallo MD [address] [place] [address] Health Maintenance Due Date Last Done Comments [...] transitions and discharge planning Lifestyle No Padma Goodson RN Procedures Procedure Name Priority Date/Time Associated Diagnosis Comments USV CAROTID DUPLEX PAOLA Routine 10:32 AM CDT Bilateral carotid artery stenosis USE ECHOCARDIOGRAM Routine 12/15/2024 10 :32 AM CDT 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 MOBILE CONTINUOUS TELEMETRY Routine 11/24/2024 2:39 PM DYE RANGE TENDER 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 ELECTROCARDIOGRAM, TRACING Routine 11/03/2024 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 LIPID PANEL Routine 03/27/2013 12:00 AM CDT from Last 3 Months or Most Recently Relevant to Health Maintenance Results * USV CAROTID DUPLEX PAOLA (12/15/2024 10:32 AM CDT) Anatomical Region Laterality Modality Neck Ultrasound 12/15/2024 9:46 AM CDT Narrative 12/18/2024 10:25 AM CDT Outreach Carotid Ultrasound Vascular Report Pat.Name: Cheli Fischer cassia Pat.ID: [id number] .Date: 12/15/2024 Refer.MD: Outreach, [facility] Exam Time: 9:46:00 AM Study Type:OUTREACH CAROTID SCAN BILATERAL Height: 64 in Age: 12 1940,84Y Sex: F Sonogrphr: [facility] Pat. Stat.:Outpatient Reason for Study:Bilateral carotid artery stenosis Procedures: Study performed at [facility], [place], [place] and interpreted by [facility]. [...] Ultrasound Vascular Report Pat.Name: Cheli Fischer Pat.ID: [id number] St.Date: 12/15/2024 [facility]: [facility]00 AM Study Type:OUTREACH CAROTID SCAN BILATERAL Height: 64 in Age: 12 1940,84Y Sex: F Sonogrphr: [facility] Pat. Stat.:Outpatient Reason for Study:Bilateral carotid artery stenosis Procedures: Study performed at [place], [place] and interpreted by [facility]. ++++++++++++++++++++++++++++++++++++ FINDINGS: ++++++++++++++++++++++++++++++++++++ Rt ICA: [...] CDT Echocardiography Report Pat.Name: Cheli Fischer Pat.ID: [id number] .Date: 12/15/2024 Refer.MD: Whit, [facility] Exam Time: 10:11:00 AM Study Type:[facility] Height: 64 in Weight: 125 lb BSA: 1.6 m2 Age: 12 1940,84Y Sex: F Sonogrphr: Sf Pat. 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 2D, M-mode, Doppler, Color Flow [...] Echocardiography Report Pat.Name: Cheli Fischer cassia Li.ID: [id number] .Date: 12/15/2024 Refer.MD: Whit, [facility] Exam Time: 10:11:00 AM Study Type:OUTREACH Height: 64 in Weight: 125 lb BSA: 1.6 m2 Age: 12 1940,84Y Sex: F Sonogrphr: Sf Pat. 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 2D, M-mode, Doppler, Color Flow [...] MD ECHO Final Result * CLINIC - [id number] MCT - Today (11/24/2024 2:39 PM DYE RANGE TENDER) [facility] - 11/24/2024 2:39 PM DYE RANGE TENDER Baseline Rhythm * The baseline rhythm was [...] Signed CHANG DIALLO MD, MS, FACC, RVPI [facility] [place], [place] us Chang Diallo MD CV VASCULAR ORDERABLES Final Res ult [facility] * NOT [facility] - ELECTROCARDIOGRAM, TRACING [...] 7:36 PM 05/15/2023 6:47 PM Care Teams Pie Crimping Machine Operator Relationship Specialty Start Date End Date Phil Garcia MD [address] [place] [address] PCP - General INTERNAL MEDICINE 04/09/16 Chang Diallo MD [address] [place] [address] [place] Former Hand CARDIOVASCULAR DISEASE 10/14/24
[2025-01-19] MEDS: SODIUM CHLORIDE 0.9% IV 1,000 ML 100 ML IV CONT (18:20)
--- NOTE | 2025-01-19 18:23 | ADMGEN ---
This patient, Cheli Fischer, was admitted to 2nd Floor Room 210-1. Patient/family oriented to hospital policies and general routines including ID bracelet, bed and alarms, visiting hours, pain management, procedures, bathroom and other care routines, personal items, smoking policy, room service/diet, and visiting hours. Information on how to activate the Rapid Response Team has been discussed. Patient/Family are encouraged to report perceived risks to care and to ask questions if they do not understand what they are told or what they should do.
[2025-01-19] MEDS: ACETAMINOPHEN 325 MG TABLET 650 MG PO (22:26)
[2025-01-20] VITALS: BP 155/74; PULSE 84; RESP 16; TEMP 36.7; O2SAT 95
[2025-01-20] MEDS: SODIUM CHLORIDE 0.9% IV 1,000 ML 100 ML IV CONT (04:08)
[2025-01-20 04:38] LABS: Basophils Absolute Auto 0.01 K/mm3 (0.00-0.10); Basophils Percent Auto 0.2 % (0.0-1.0); Hematocrit 37.7 % (35.0-42.0); Hemoglobin 11.9 g/dL (11.7-13.8); Immature Granulocyte Absolute 0.01 K/mm3 (0.00-0.00); Immature Granulocyte Percent A 0.2 % (0.0-0.0); Lymphocytes Absolute Auto 0.24 K/mm3 (1.10-4.50); Lymphocytes Percent Auto 4.5 % (18.0-42.0); Mean Corpuscular HGB Conc 31.6 g/dL (32-36); Mean Corpuscular Hemoglobin 35.3 pg (27.0-31.0); Mean Corpuscular Volume 111.9 fL (78.0-102.0); Monocytes Absolute Auto 0.17 K/mm3 (0.10-0.90); Monocytes Percent Auto 3.2 % (2.0-11.0); Neutrophils Absolute Auto 4.88 K/mm3 (1.70-7.20); Neutrophils Percent Auto 91.9 % (50.0-70.0); Platelet Count Result 209 K/mm3 (150-420); Red Blood Count 3.37 M/mm3 (4.20-5.40); Red Cell Distribution Width 13.5 % (11.6-14.4); White Blood Count 5.3 K/mm3 (4.8-10.8)
[2025-01-20 05:06] LABS: Alanine Aminotransferase 20 U/L (14-59); Albumin Level 3.5 g/dL (3.4-5.0); Alkaline Phosphatase 123 U/L (46-116); Anion Gap 9 mmol/L (4-12); Aspartate Amino Transferase 20 U/L (15-37); Bilirubin,Total 0.8 mg/dL (0.00-1.00); Blood Urea Nitrogen 22 mg/dL (7-18); Calcium 9.9 mg/dL (8.5-10.1); Carbon Dioxide 29 mmol/L (21-32); Chloride 105 mmol/L (98-108); Estimated CRCL calculation 29 ml/min; Estimated Glomerular Filt Rate 46; Glucose 100 mg/dL (70-99); NT Pro B Type Natriuretic Pept 1275 pg/mL (0-450); Osmolality Calculated 299 mOsm/kg (285-295); Potassium 4.1 mmol/L (3.5-5.1); Sodium 143 mmol/L (136-145); Total Protein 6.6 g/dL (6.4-8.2)
[2025-01-20 05:24] LABS: Lactic Acid Reflex 1.7 mmol/L (0.4-2.0)
[2025-01-20] MEDS: LEVOTHYROXINE SODIUM 75 MCG TABLET PO (06:11)
--- NOTE | 2025-01-20 11:30 | PC.NURSE ---
Downtime today from [id number]. New orders written for STAT CT chest/Abdomen/pelvis w/o contrast. Bolus 1 Liter NS x 1 now. Written by Antonette Alcantara NP during this time.
--- NOTE | 2025-01-20 11:38 | PC.NURSE ---
from 7am til 11am. please see down time charting. at this time she is in bed sleeping. voices no c/o. at bedside.
[2025-01-20 12:00] VITALS: BP 138/80; PULSE 60; RESP 20; TEMP 36.9; O2SAT 97
--- NOTE | 2025-01-20 13:19 | P.TS_ITS ---
Transfer Discharge Sum: Prov Provider Date of admission: 01/19/25 17:22 Primary care physician: Phil Garcia MD Admitting clinician: Eliezer Patricia MD Attending physician on discharge: Eliezer Patricia Discharging clinician: Antonette Alcantara Anticipated date of transfer: 01/20/25 Receiving physician/facility: Dr. Noriega at [facility] DS: Admitting Diagnosis Discharge Date 01/20/25 Admitting Diagnosis Community-acquired pneumonia Small-bowel obstruction DS: Discharge Diagnosis Discharge Diagnosis (1) Nausea & vomiting: Qualifiers: Vomiting type: unspecified Qualified Code(s): R11.2 - Nausea with vomiting, unspecified Code(s): R11.2 - Nausea with vomiting, unspecified Status: Acute (2) Acute dehydration: Code(s): E86.0 - Dehydration Status: Acute (3) Community acquired pneumonia: Code(s): J18.9 - Pneumonia, unspecified organism Status: Acute (4) Small bowel obstruction: Code(s): K56.609 - Unspecified intestinal obstruction, unspecified as to partial versus complete obstruction Status: Inactive Transfer Discharge Sum: Med Medications Active and Home Medications: Home Medications aspirin 81 mg capsule 81 mg PO DAILY 08/04/21 [History Confirmed 12/28/24] atorvastatin 40 mg tablet 40 mg PO DAILY 08/04/21 [History Confirmed 12/28/24] carvedilol 3.125 mg tablet 3.125 mg PO BID 08/04/21 [History Confirmed 12/28/24] cholecalciferol (vitamin D3) 25 mcg (1,000 unit) capsule (Vitamin D3) 25 mcg PO DAILY 08/04/21 [History Confirmed 12/28/24] clopidogrel 75 mg tablet 75 mg PO DAILY 08/04/21 [History Confirmed 12/28/24] famotidine 20 mg tablet 20 mg PO BID 08/04/21 [History Confirmed 12/28/24] levothyroxine 75 mcg tablet 75 mcg PO DAILY 08/04/21 [History Confirmed 12/28/24] pantoprazole 40 mg tablet,delayed release 40 mg PO QAM 08/04/21 [History Confirmed 12/28/24] spironolactone 25 mg tablet 25 mg PO DAILY 08/04/21 [History Confirmed 12/28/24] tramadol 50 mg tablet 50 mg PO TID PRN Pain 08/04/21 [History Confirmed 12/28/24] acetaminophen 650 mg tablet,extended release (Tylenol Arthritis Pain) 650 mg PO Q8H 05/16/24 [History Confirmed 12/28/24] mecobalamin (vitamin B12) 500 mcg chewable tablet 500 mcg PO DAILY 05/16/24 [H istory Confirmed 12/28/24] polyethylene glycol 3350 17 gram/dose oral powder (Miralax) 17 g PO DAILY PRN Constipation 05/16/24 [History Confirmed 12/28/24] magnesium 100 mg tablet 500 mg PO DAILY 01/19/25 [History] memantine 5 mg tablet 10 mg PO BID 01/19/25 [History] azithromycin 500 mg intravenous solution (Zithromax) 500 mg IV Q24H #1 ea 01/20/25 [Rx] ceftriaxone 1 gram intravenous solution 1 g IV Q24H #1 ea 01/20/25 [Rx] Active Medications Acetaminophen (Acetaminophen 325 Mg Tablet) 650 mg PO Q4H PRN PRN Reason: Mild Pain (1-3) or Fever Last Admin: 01/19/25 22:26 Dose: 650 mg Aspirin (Aspirin 81 Mg Enteric Tablet) 81 mg PO DAILY [facility] Atorvastatin Calcium (Atorvastatin 40 Mg Tablet) 40 mg PO DAILY [facility] Carvedilol (Carvedilol 3.125 Mg Tablet) 3.125 mg PO Q12HR [facility] Clopidogrel Bisulfate (Clopidogrel Bisulfate 75 Mg Tablet) 75 mg PO DAILY [facility] Cyanocobalamin (Cyanocobalamin 500 Mcg Tablet) 500 mcg PO QAM [facility] Famotidine (Famotidine 20 Mg Tablet) 20 mg PO Q12HR [facility] Dextrose/Sodium Chloride (Dextrose 5% Sodium Chloride 0.9%) 1,000 mls @ 100 mls/hr IV CONT .Q10H [facility] Azithromycin (Zithromax) 500 mg in 250 mls @ 250 mls/hr IVPB Q24H [facility] Ceftriaxone Sodium (Rocephin 1 Gm/Ns 50 Ml) 1 gm in 50 mls @ 100 mls/hr IVPB Q24H [facility] Last Admin: 01/20/25 13:14 Dose: 100 mls/hr Levothyroxine Sodium (Levothyroxine Sodium 75 Mcg Tablet) 75 mcg PO DAILY@0630 [facility] Last Admin: 01/20/25 06:11 Dose: 75 mcg Losartan Potassium (Losartan Potassium 25 Mg Tablet) 25 mg PO DAILY [facility] Magnesium Oxide (Magnesium Oxide 400 Mg Tablet) 400 mg PO DAILY [facility] Memantine (Memantine 5 Mg Tablet) 10 mg PO Q12HR [facility] Ondansetron HCl (Ondansetron Inj 4 Mg/2 Ml Vial) 4 mg IV PUSH Q6H PRN PRN Reason: Nausea And Vomiting Last Admin: 01/19/25 22:26 Dose: 4 mg Pantoprazole Sodium (Pantoprazole 40 Mg Tablet) 40 mg PO QAM [facility] Spironolactone (Spironolactone 25 Mg Tablet) 25 mg PO DAILY [facility] Vitamin D (Cholecalciferol 1,000 Units Tablet) 1,000 units PO DAILY [facility] Transfer Discharge Sum: Hosp Hospital Course Hospital course: Cheli Fischer is a 84 year old female with a significant past medical history of coronary artery disease status post 5 vessel CABG and left internal carotid stent, high cholesterol, hypertension, [place] in 2012, peripheral vascular disease, COPD, appendectomy, abdominal thoracic aortic aneurysm measuring 4.5 cm noted on today CT scan,GERD, anemia, hypothyroidism, cataracts, dementia who presented to the hospital with nausea, vomiting for the last couple of days. She states that she did have some abdominal pain and diarrhea 3 days prior to the nausea and vomiting. She denies any sick contacts. Workup in the hospital included initial labs which showed a normal white blood cell count of 5.3, creatinine 1.12, EGFR 46, lactic acid was normal at 1.7, alkaline phosphate 123, proBNP 1275. Blood cultures were obtained and pending. She was given 1 L normal saline, started on IV fluids at 100 mL/hour, given Zofran while in the ED. this morning she was running a fever of 104.1 and was given some Tylenol which brought her down to 98.5. We sent her for a CT of the chest abdomen and pelvis which showed ground-glass opacities and small centrilobular nodules with tree-in-bud pattern the superior segments of the bilateral lower lobes which could represent aspiration, pneumonia; small left pleural effusion, intestinal malrotation with dilation of the jejunum which extends caudally to a transition point in the right lower quadrant suspicious for small bowel obstruction, there was some wall thickening of the dilated bowel which could be related to obstruction or enteritis which could be infectious, ascending thoracic aortic aneurysm measuring up to 4.5 cm, extensive atherosclerotic calcifications along the aorta, a few cystic appearing lesions at the left adnexa which are difficult to distinguish on noncontrast imaging. Considering small bowel obstruction, we went ahead and placed an NG tube to lower intermittent suction and are treating for underlying pneumonia with Rocephin and azithromycin. She is now requiring higher level of care and transfer to tertiary hospital is warranted for General surgery consult. Call placed to [facility]. Accepting physician is Dr. Noriega, Dr. Hubbard from general surgery agrees to consult. She is stable for transfer at this time. Of note she was seen in the ER earlier yesterday after sustaining a ground level fall. She was evaluated in the ED and trauma workup was negative for any acute findings. It was noted that patient was recently started on Namenda for dementia. She was sent home in stable condition and then re-presented with reports of nausea and vomiting. Final diagnosis: Small-bowel obstruction, community-acquired pneumonia, dehydration Time Spent with Patient Time attestation: Total time spent providing and/or coordinating transfer services: Exam Narrative: General: In no acute distress, well nourished Head: atraumatic, no encephalopathy Eyes: PERRLA, sclera clear ENT: moist mucous membranes, nasal passages clear Neck: supple, no JVD, no adenopathy, trachea midline Cardiac: Normal S1 and S2. RRR, No murmur, gallops or friction rubs, peripheral pulses intact. Respiratory: Lungs clear to auscultation, no adventitious lung sounds, currently on room air Gastrointestinal: soft, non-distended, non-tender, hypoactive bowel sounds. : voiding without difficulty. Extremities: moves all extremities well, no edema Skin: Areas of bruising bilateral upper extremities bilateral lower extremities Neuro: Alert and oriented x4, cranial nerves intact, no neuro deficits. Psych: normal mood, normal affect, interactive DS: Data Data Completed and Pending Completed studies during hospitalization: Chest/abdomen/pelvis CT Pending studies at discharge: Blood cultures Labs on day of discharge: Labs from last 24 hours 01/20/25 04:32 WBC 5.3 RBC 3.37 L Hgb 11.9 Hct 37.7 MCV 111.9 H MCH 35.3 H MCHC 31.6 L RDW 13.5 Plt Count 209 MPV 10.0 Immature Gran % (Auto) 0.2 H Neut % (Auto) 91.9 H Lymph % (Auto) 4.5 L Mccreary % (Auto) 3.2 Eos % (Auto) 0.0 L Baso % (Auto) 0.2 Lymph # (Auto) 0.24 L Mccreary # (Auto) 0.17 Eos # (Auto) 0.00 L Baso # (Auto) 0.01 Abs Immat Gran (auto) 0.01 H Absolute Neuts (auto) 4.88 Absolute Nucleated RBC 0.00 Nucleated RBC % 0.0 Sodium 143 Potassium 4.1 Chloride 105 Carbon Dioxide 29 Anion Gap 9 BUN 22 H Creatinine 1.12 H Estim Creat Clear Calc 29 Estimated GFR 46 L Glucose 100 H Calculated Osmolality 299 H Lactic Acid 1.7 Calcium 9.9 Total Bilirubin 0.8 AST 20 ALT 20 Alkaline Phosphatase 123 H NT-Pro-B Natriuret Pep 1275 H Total Protein 6.6 Albumin 3.5 Procedures/Treatments: None Imaging Radiologist's impression: EXAMINATION: CT chest abdomen pelvis wo con DATE: 01/20/2025 09:53 INDICATION: Nausea, vomiting and diarrhea. TECHNIQUE: Computed tomography (CT) of the chest, abdomen, and pelvis was performed without intravenous contrast. Automated exposure control and iterative reconstruction technique were employed. The dose-length product was 343.82 mGy- cm. COMPARISON: 04/26/2023 and 12/09/2022 FINDINGS: CHEST CT: Mild discoid atelectasis in the right lower lobe. Likely small regions of small groundglass opacities and centrilobular nodules with tree-in-bud appearance in the superior segment of the bilateral lower lobes suggesting endobronchial spread of disease which could be aspiration, pneumonia or pulmonary hemorrhage. Small left pleural effusion. Mild cardiomegaly. Atherosclerotic coronary artery calcification. Aortic valve calcification. Postoperative change of prior median sternotomy and coronary artery bypass grafting. No pericardial effusion. Ascending thoracic aortic aneurysm measuring up to 4.5 cm in maximal diameter. Enlargement of the central pulmonary arteries consistent with pulmonary arterial hypertension. No pathologically enlarged thoracic lymphadenopathy. Severe thoracic spondylosis. C6-C7 anterior spinal fusion with anterior plate-screw fixation. Bilateral rotator cuff calcific tendinitis. ABDOMEN/PELVIS CT: Multiple gallstones in the normal incompletely distended gallbladder. Liver, spleen, pancreas and right adrenal gland are normal. Unchanged 1.5 cm low- attenuation left adrenal adenoma. There is calcified atherosclerosis of the aorta and many of the other arteries including multiple renal arteries at the bilateral renal laurie. Bilateral kidneys are otherwise unremarkable. Bladder and uterus are unremarkable. Again seen are low-attenuation cystic lesions at the left ovary which are difficult to distinguish on the noncontrast imaging. Again seen is an intestinal malrotation with the colon, in the left abdomen and the jejunum extending caudally into the right lower quadrant. There is dilation of fluid-filled jejunum in the right abdomen with transition point in the right lower quadrant suspicious for small bowel obstruction. There does appear to be some wall thickening of the small bowel and differential would include ileus in the setting of an enteritis which would include ischemic given extensive va scular disease. Prior bowel surgery with anastomotic suture line along a loop of bowel in the anterior pelvis. No abscess, free intraperitoneal gas or fluid. Moderate lumbar spondylosis. Chondrocalcinosis and moderate right-sided and mild left-sided hip osteoarthritis. IMPRESSION: 1. Groundglass opacities and small centrilobular nodules with tree-in-bud pattern in the superior segments of the bilateral lower lobes which could be due to aspiration, pneumonia or pulmonary hemorrhage. 2. Small left pleural effusion. 3. 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 There are some wall thickening of the dilated bowel which could be related to the obstruction but also raises the possibility of an ileus in setting of enteritis which could be infectious, inflammatory or ischemic in etiology. 4. Ascending thoracic aortic aneurysm measuring up to 4.5 cm in diameter. 5. Extensive atherosclerotic calcifications along the aorta and many of the other arteries in the chest, abdomen and pelvis including prominently at the origin of the celiac axis, superior mesenteric and bilateral renal arteries. Unable to assess for degree of stenosis on noncontrast imaging. 6. A few cystic-appearing lesions at the left adnexa which are difficult to distinguish on the noncontrast imaging. Consider nonemergent follow-up pelvic ultrasound for further evaluation. Reviewed, dictated and finalized at location A.
[2025-01-20] MEDS: AZITHROMYCIN 500 MG/NS 250 ML 500 MG/250 ML BAG 250 MG IVPB (13:45)
--- NOTE | 2025-01-20 14:08 | PC.NURSE ---
1315 report given to erich @ [facility]. ng tube is in R nare with immediate return of green/brown liquid. placement verified with ausculation of air. family in room and updated. ambulance aware of need for transfer.
[2025-01-20 15:32] LABS: MRSA (PCR) NOT DETECTED (NOT DETECTE)
--- NOTE | 2025-01-20 16:20 | PC.NURSE ---
1445 report given to amb and care turned over. patient on way to [facility]
--- NOTE | 2025-01-23 09:31 | PC.NURSE ---
No discharge call back completed. Pt transfered to [facility] 01/20/25.
== END 2025-01-20 14:45 | disposition short-term general hospital (02) ==
LOC: CHSED 17:37 → CHS2ND 17:45
PROVIDERS: Nurse Practitioner Acute Care; Admitting Provider Internal Medicine; Emergency Provider Emergency Medicine; PCP Internal Medicine; Visit Provider Internal Medicine
DX: E86.0 Dehydration (principal); J18.9 Pneumonia, unspecified organism; K56.609 Unspecified intestinal obstruction, unspecified as to partial versus complete obstruction; J44.0 Chronic obstructive pulmonary disease with (acute) lower respiratory infection; F03.90 Unspecified dementia, unspecified severity, without behavioral disturbance, psychotic disturbance, mood disturbance, and anxiety; I25.10 Atherosclerotic heart disease of native coronary artery without angina pectoris; I25.2 Old myocardial infarction; I10 Essential (primary) hypertension; E78.00 Pure hypercholesterolemia, unspecified; I73.9 Peripheral vascular disease, unspecified; I71.60 Thoracoabdominal aortic aneurysm, without rupture, unspecified; K21.9 Gastro-esophageal reflux disease without esophagitis; D64.9 Anemia, unspecified; E03.9 Hypothyroidism, unspecified; H26.9 Unspecified cataract; Z79.02 Long term (current) use of antithrombotics/antiplatelets; Z79.82 Long term (current) use of aspirin; Z79.899 Other long term (current) drug therapy; Z87.891 Personal history of nicotine dependence; Z90.49 Acquired absence of other specified parts of digestive tract; Z91.81 History of falling; Z95.1 Presence of aortocoronary bypass graft; Z95.5 Presence of coronary angioplasty implant and graft; Z95.828 Presence of other vascular implants and grafts
CPT/HCPCS: 36415; 70450; 71045; 71250; 72125; 72128; 74018; 74176; 80053; 81001; 83605; 83880; 84484; 85025; 86140; 87040; 87637; 87641; 93005; 96361; 96365; 96374; 96375; 96376; 99284; 99285; A9270; G0378; J0456; J0696; J2405; J7030

== ENCOUNTER 2025-01-20 16:43 | Inpatient (IN) | payer MEDICARE, SELFPAY ==
--- NOTE | ~2025-01-20 | XR_ITS ---
EXAM: XR small bowel follow through DATE: 01/21/2025 17:32 HISTORY: SBO, please use water soluble contrast . COMPARISON: X-ray abdomen 01/20/2025. FINDINGS: NG tube, tip and side port project over the stomach. Surgical clips over the GE junction. Scattered vascular calcifications. Lumbar degenerative disc disease and bilateral hip osteoarthritis. Following the instillation of 240 mL Gastrografin, contrast fills a normal-appearing stomach and begi ns to fill slightly dilated proximal small bowel, with more pronounced small bowel dilation over the lower abdomen. The duodenum does not appear to cross the midline. Between the 1 and 2 hour images, co ntrast can be seen in a portion of the large bowel at the hepatic flexure and transverse colon, with obscuration from overlying small bowel contrast. IMPRESSION: Malrotation. Small bowel bowel dilation, may be secondary to ileus or partial obstruction . Contrast reaches the large bowel between the one hour and 2 hour images. Reviewed, dictated and finalized at location K. IMPRESSION: Malrotation. Small bowel bowel dilation, may be secondary to ileus or partial obstruction. Contrast reaches the large bowel between the one hour a nd 2 hour images.
[2025-01-20] MEDS: LACTATED RINGERS 1,000 ML 100 ML IV CONT (15:00)
--- NOTE | 2025-01-20 15:30 | ADMGEN ---
This patient, Cheli Fischer, was admitted to Medical Room 346-01. Patient/family oriented to hospital policies and general routines including ID bracelet, bed and alarms, visiting hours, pain management, procedures, bathroom and other care routines, personal items, smoking policy, room service/diet, and visiting hours. Information on how to activate the Rapid Response Team has been discussed. Patient/Family are encouraged to report perceived risks to care and to ask questions if they do not understand what they are told or what they should do.
[2025-01-20 15:41] VITALS: BMI 22.8
--- NOTE | 2025-01-20 16:43 | P.HP_ITS ---
H&P: HPI History of Present Illness Date/Time: 01/20/25 16:43 Chief Complaint: Nausea, Vomiting, Diarrhea Narrative: 84 y/o F with PMH of HTN, CAD s/p CABG (5 vessel), s/p carotid stent, HLD, HTN, PVD, [place] (2012), COPD, hypothyroidism, abdominal thoracic aortic aneurysm (4.5 cm) and dementia presents with nausea, vomiting, and diarrhea. The patient presented to [facility] on 01/19 for evaluation of a ground level fall and then returned for further evaluation of nausea, vomiting, diarrhea.? She reports she initially developed abdominal pain and diarrhea 3 days ago.?She then developed nausea and vomiting.? Diarrhea is not accompanied by hematochezia/black tar stools. Patient then had a ground level fall that occurred early this morning on 01/20. She reports a +head strike without loss of consciousness.? At time of the arrival to the emergency department she reported pain to her head, neck, and mid upper back region.? Trauma workup was completed including a CT of the brain, C-spine, and thoracic spine as well as a chest x- ray which were negative for acute abnormalities.? However, when she returned for further evaluation of the nausea/vomiting/diarrhea a CT of the chest/abdomen/pelvis was completed.? This showed a tree-in-bud pattern pneumonia versus aspiration versus pulmonary hemorrhage and intestinal malrotation with dilation of the jejunum suspicious for SBO and wall thickening of the dilated bowel which could be related to the obstruction but also raises the possibility of an ileus in the setting of enteritis (infectious versus inflammatory versus ischemic). ?She was transferred here for general surgery consultation and further treatment of her SBO/ileus and pneumonia. Initial VS at presentation: ?98.4? F, HR 92, R 18, 159/108, and 97% on RA. ED workup showed: ?No leukocytosis, no anemia, creatinine 1.2 and GFR 46 (at baseline), lactic 1.7, BNP 1275.? See chest/abdomen/pelvis CT results below. Review of Systems Review of Systems: All systems reviewed & are unremarkable except as noted in HPI and below PMFSH Past Medical History Medical History Hypothyroidism Skin cancer Facial Iron deficiency anemia History of cervical fracture 2005, s/p surgery Irritable bowel syndrome GERD (gastroesophageal reflux disease) Small bowel obstruction 2014, 2018, 2022, 2024 COPD (chronic obstructive pulmonary disease) Coronary artery disease Peripheral vascular disease Myocardial infarction HLD (hyperlipidemia) Atrial fibrillation Hypertension Surgical History Surgical History History of bilateral cataract extraction History of incisional hernia repair Presence of internal carotid stent Left, 2016 Hx of CABG Family History Family History Father Hypertension Mother Hypertension Family history of malignant neoplasm of brain Sibling Family history of malignant neoplasm Social History Social History Smoking status: Former smoker Alcohol intake: never Substance use: never Substance use type: does not use Do You Feel Safe in your Home?: Yes Lack of Transportation: No Lack of Food: Never True Current Housing: I Have Housing Concerned About Future Housing: No Difficulty Paying Gas/Electric Bills: No Difficulty Paying for Meds: No Currently Unemployed: No Education: High School Diploma/GED Difficulty w/ Childcare or Family Care: No Living arrangements: with family Spiritual care concerns: No Meds Home Medications and Allergies Home Medications ?Medication ?Instructions ?Recorded ?Confirmed ?Type aspirin 81 mg capsule 81 mg PO DAILY 08/04/21 01/20/25 History atorvastatin 40 mg tablet 40 mg PO DAILY 08/04/21 01/20/25 History carvedilol 3.125 mg tablet 3.125 mg PO BID 08/04/21 01/20/25 History cholecalciferol (vitamin D3) 25 25 mcg PO DAILY 08/04/21 01/20/25 History mcg (1,000 unit) capsule (Vitamin D3) clopidogrel 75 mg tablet 75 mg PO DAILY 08/04/21 01/20/25 History famotidine 20 mg tablet 20 mg PO BID 08/04/21 01/20/25 History levothyroxine 75 mcg tablet 75 mcg PO DAILY 08/04/21 01/20/25 History pantoprazole 40 mg tablet,delayed 40 mg PO QAM 08/04/21 01/20/25 History release spironolactone 25 mg tablet 25 mg PO DAILY 08/04/21 01/20/25 History tramadol 50 mg tablet 50 mg PO TID PRN Pain 08/04/21 01/20/25 History acetaminophen 650 mg 650 mg PO Q8H 05/16/24 01/20/25 History tablet,extended release (Tylenol Arthritis Pain) mecobalamin (vitamin B12) 500 mcg 500 mcg PO DAILY 05/16/24 01/20/25 History chewable tablet polyethylene glycol 3350 17 17 g PO DAILY PRN Constipation 05/16/24 01/20/25 Hi story gram/dose oral powder (Miralax) magnesium 100 mg tablet 500 mg PO DAILY 01/19/25 01/20/25 History memantine 5 mg tablet 10 mg PO BID 01/19/25 01/20/25 History azithromycin 500 mg intravenous 500 mg IV Q24H #1 ea 01/20/25 01/20/25 Rx solution (Zithromax) ceftriaxone 1 gram intravenous 1 g IV Q24H #1 ea 01/20/25 01/20/25 Rx solution Allergies Allergy/AdvReac Type Severity Reaction Status Date / Time morphine Allergy Anaphylaxis Verified 01/19/25 17:06 Exam Const: General: comfortable and no acute distress Other: , female, elderly, nontoxic appearance HENMT: Face/Nose/Sinus: Normal nares present Mouth: Yes moist mucous membranes Eyes: General: appearance normal, both eyes and all related structures Sclera: sclerae normal Pupils: Equal, round and reactive pupils present EOM: EOMs intact bilaterally Resp: Effort & Inspection: normal respiratory effort Auscultation: clear to auscultation bilaterally Cardio: Rate: regular rate Rhythm: regular rhythm Other: S1-S2 present without murmur, rub, ectopy GI: Other: Abdomen soft, nondistended, nontender. Normoactive bowel sounds in all quadrants. Skin: General skin exam: normal color and no rashes or lesions noted Wounds: no wounds Neuro: Other: Somnolent, moving all extremities. A&O x4. Extrem: General: normal to inspection Assessment and Plan Assessment and plan (1) Sepsis: Qualifiers: Sepsis acute organ dysfunction status: without acute organ dysfunction Sepsis type: sepsis due to unspecified organism Qualified Code(s): A41.9 - Sepsis, unspecified organism Code(s): A41.9 - Sepsis, unspecified organism Status: Acute Assessment and Plan: - meets SIRS criteria: heart rate greater than 90 and temp greater than 100.4? F - lactic acid: 1.7 - 1L given upon presentation, continue at 100 mL/hour x2L - suspected source: Pneumonia - started on ceftriaxone and azithromycin on 01/20 - blood cultures drawn on 01/20 - UA showed trace protein, otherwise unremarkable - CT chest/abdomen/pelvis: 1. Groundglass opacities and small centrilobular nodules with tree-in-bud pattern in the superior segments of the bilateral lower lobes which could be due to aspiration, pneumonia or pulmonary hemorrhage. 2. Small left pleural effusion. 3. 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 There are some wall thickening of the dilated bowel which could be related to the obstruction but also raises the possibility of an ileus in setting of enteritis which could be infectious, inflammatory or ischemic in etiology. 4. Ascending thoracic aortic aneurysm measuring up to 4.5 cm in diameter. 5. Extensive atherosclerotic calcifications along the aorta and many of the other arteries in the chest, abdomen and pelvis including prominently at the origin of the celiac axis, superior mesenteric and bilateral renal arteries. Unable to assess for degree of stenosis on noncontrast imaging. 6. A few cystic-appearing lesions at the left adnexa which are difficult to distinguish on the noncontrast imaging. Consider nonemergent follow-up pelvic ultrasound for further evaluation. - hemodynamically stable, monitor (2) Community acquired pneumonia: Qualifiers: Laterality: unspecified laterality Qualified Code(s): J18.9 - Pneumonia, unspecified organism Code(s): J18.9 - Pneumonia, unspecified organism Status: Acute Assessment and Plan: - CXR: No acute cardiopulmonary disease, CT chest/abdomen/pelvis showed groundglass opacities and small centrilobular nodules with tree-in-bud pattern in the superior segments of the bilateral lower lobes which could be due to aspiration, pneumonia or pulmonary hemorrhage. 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 There are some wall thickening of the dilated bowel which could be related to the obstruction but also raises the possibility of an ileus in setting of enteritis which could be infectious, inflammatory or ischemic in etiology. - NPO w/NG placement - General Surgery consulted - IV fluids: LR 100 mL/hour x2L - monitor I&Os (4) Gastroenteritis: Code(s): K52.9 - Noninfective gastroenteritis and colitis, unspecified Status: Acute Assessment and Plan: - CT showed SBO vs ileus in the setting of enteritis which could be infectious, inflammatory or ischemic in etiology. - check C diff and stool culture - IV fluids and antiemetics p.r.n. (5) Hypertension: Qualifiers: Hypertension type: unspecified Qualified Code(s): I10 - Essential (prim deb) hypertension Code(s): I10 - Essential (primary) hypertension Status: Chronic Assessment and Plan: - chronic, currently 161/91 - continue home medications: Coreg, spironolactone - monitor Plan Diet: NPO, NG in place GI Prophylaxis: Not currently indicated DVT Prophylaxis: SCDs IV fluids: 100 mL/hour x2L Lines/Tubes: Peripheral IV Code Status: Full code Quality VTE Prophylaxis VTE prophylaxis: mechanical ordered Hospitalist MIPS Advance Care Plan I have confirmed that the patient's Advanced Care Plan is present, code status is documented, or surrogate decision maker is listed in patient medical record.: Yes Medication Reconciliation I have utilized all available resources to obtain, update and review the patients current medications (includes all prescriptions, OTC, herbals, cannabis, and nutritional supplements).: Yes
[2025-01-20 16:45] VITALS: O2SAT 94
[2025-01-20 20:00] VITALS: PULSE 70
[2025-01-20 20:44] VITALS: BP 161/91; PULSE 60; RESP 16; TEMP 37.1; O2SAT 65
[2025-01-20 22:38] VITALS: PULSE 70
--- NOTE | 2025-01-20 22:40 | PC.NURSE ---
Request to physician for exchange medications due to patients current NPO status. Physician also notified to patient refusal to take Namenda. Stating that she believes it may be contributing to her confusion. Medication is newly prescribed.
[2025-01-20 22:45] VITALS: BP 144/72
[2025-01-21] VITALS (10 sets, daily range): BP systolic 157–178; BP diastolic 68–81; PULSE 60–94; RESP 16–18; TEMP 36.4–36.9; O2SAT 95–97
[2025-01-21] MEDS: LACTATED RINGERS 1,000 ML 100 ML IV CONT (03:24)
[2025-01-21 05:51] LABS: Basophils Percent Auto 0.4 % (0.2-1.2); Eosinophils Percent Auto 0.7 % (0-4.4); Hematocrit 34.1 % (37.0-47.0); Hemoglobin 10.7 g/dL (12.0-15.0); Lymphocytes Absolute Auto 0.37 K/mm3 (0.9-3.2); Lymphocytes Percent Auto 13.6 % (18.3-44.2); Mean Corpuscular HGB Conc 31.4 g/dl (32-36); Mean Corpuscular Hemoglobin 35.4 pg (26-34); Mean Corpuscular Volume 112.9 fl (80-100); Mean Platelet Volume 10.5 fl (7.4-10.4); Monocytes Absolute Auto 0.2 K/mm3 (0.1-0.6); Monocytes Percent Auto 8.1 % (2.6-8.5); Neutrophils Absolute Auto 2.1 K/mm3 (1.3-6.7); Neutrophils Percent Auto 77.2 % (45.5-73.1); Platelet Count Result 159 k/mm3 (150-375); Red Blood Count 3.02 M/mm3 (4.2-5.4); Red Cell Distribution Width 13.5 % (11.5-14.5); White Blood Count 2.7 K/mm3 (4.5-10.0)
[2025-01-21 05:56] LABS: Alanine Aminotransferase 16 U/L (6-35); Albumin Level 3.4 g/dL (3.5-5.1); Alkaline Phosphatase 77 U/L (38-126); Anion Gap 7 mmol/L (4-12); Aspartate Amino Transferase 33 U/L (14-36); Bilirubin,Total 0.7 mg/dL (0.2-1.3); Blood Urea Nitrogen 18 mg/dL (7-17); Calcium 9.4 mg/dL (8.4-10.2); Carbon Dioxide 25 mmol/L (22-30); Chloride 104 mmol/L (98-107); Estimated CRCL calculation 52 ml/min; Estimated Glomerular Filt Rate > 60; Glucose 97 mg/dL (65-110); Potassium 3.6 mmol/L (3.4-5.0); Sodium 136 mmol/L (137-145)
--- NOTE | 2025-01-21 13:03 | P.PNIM_ITS ---
Progress Note: A&P Assessment and Plan (1) Sepsis: Qualifiers: Sepsis type: sepsis due to unspecified organism Sepsis acute organ dysfunction status: without acute organ dysfunction Qualified Code(s): A41.9 - Sepsis, unspecified organism Code(s): A41.9 - Sepsis, unspecified organism Status: Acute Assessment and Plan: - meets SIRS criteria: heart rate greater than 90 and temp greater than 100.4? F - lactic acid: 1.7 - 1L given upon presentation, continue at 100 mL/hour x2L - suspected source: Pneumonia - started on ceftriaxone and azithromycin on 01/20 - blood cultures drawn on 01/20 - UA showed trace protein, otherwise unremarkable - CT chest/abdomen/pelvis: 1. Groundglass opacities and small centrilobular nodules with tree-in-bud pattern in the superior segments of the bilateral lower lobes which could be due to aspiration, pneumonia or pulmonary hemorrhage. 2. Small left pleural effusion. 3. 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 There are some wall thickening of the dilated bowel which could be related to the obstruction but also raises the possibility of an ileus in setting of enteritis which could be infectious, inflammatory or ischemic in etiology. 4. Ascending thoracic aortic aneurysm measuring up to 4.5 cm in diameter. 5. Extensive atherosclerotic calcifications along the aorta and many of the other arteries in the chest, abdomen and pelvis including prominently at the origin of the celiac axis, superior mesenteric and bilateral renal arteries. Unable to assess for degree of stenosis on noncontrast imaging. 6. A few cystic-appearing lesions at the left adnexa which are difficult to distinguish on the noncontrast imaging. Consider nonemergent follow-up pelvic ultrasound for further evaluation. - hemodynamically stable, monitor 01/21/25: * VSS today and WBC's 2.7. * Continuing abx. Rocephin and Azithromycin. (2) Community acquired pneumonia: Qualifiers: Laterality: unspecified laterality Qualified Code(s): J18.9 - Pneumonia, unspecified organism Code(s): J18.9 - Pneumonia, unspecified organism Status: Acute Assessment and Plan: - CXR: No acute cardiopulmonary disease, CT chest/abdomen/pelvis showed groundglass opacities and small centrilobular nodules with tree-in-bud pattern in the superior segments of the bilateral lower lobes which could be due to aspiration, pneumonia or pulmonary hemorrhage. - risk factors and complicating factors: SBO/ileus - started on CAP tx: Ceftriaxone and azithromycin on 01/20 - Viral PCR and MRSA PCR negative - check sputum culture if obtainable - no current supplemental O2 requirement, monitor 01/21/25: * Continue meds. * Not requiring O2. * Supportive treatment as needed. 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 There are some wall thickening of the dilated bowel which could be related to the obstruction but also raises the possibility of an ileus in setting of enteritis which could be infectious, inflammatory or ischemic in etiology. - NPO w/NG placement - General Surgery consulted - IV fluids: LR 100 mL/hour x2L - monitor I&Os 01/21/25: * Awaiting Sgy evaluation. * Continue IVF * Continue NPO status pending Sgy. (4) Gastroenteritis: Code(s): K52.9 - Noninfective gastroenteritis and colitis, unspecified Status: Acute Assessment and Plan: - CT showed SBO vs ileus in the setting of enteritis which could be infectious, inflammatory or ischemic in etiology. - check C diff and stool culture - IV fluids and antiemetics p.r.n. 01/21/25: * Continuing supportive care. Awaiting C-diff and stool culture results. (5) Hypertension: Qualifiers: Hypertension type: unspecified Qualified Code(s): I10 - Essential (primary) hypertension Code(s): I10 - Essential (primary) hypertension Status: Chronic Assessment and Plan: - chronic, currently 161/91 - continue home medications: Coreg, spironolactone - monitor 01/21/25: * Stable. Continue current meds. Plan Diet: NPO, NG in place GI Prophylaxis: Not currently indicated DVT Prophylaxis: SCDs IV fluids: 100 mL/hour x2L Lines/Tubes: Peripheral IV Code Status: Full code Time Spent With Patient Time with patient: 15 - 25 minutes Subjective Date/time seen: 01/21/25 13:03 Interval history: This very pleasant 84-year-old female patient was examined at the bedside today in interval assessment since being admitted for sepsis, pneumonia and small- bowel obstruction. Patient reports that she has very little pain today, no nausea and that intervally she is feeling better overall. She denies any fevers or any other complaints. We are currently awaiting General surgery evaluation. Review of Systems Review of Systems: All systems reviewed & are unremarkable except as noted in HPI and below Exam Const: General: comfortable and no acute distress Other: Lying supine in no acute distress. HENMT: Mouth: Yes moist mucous membranes Other: NG tube present to right ear. Draining a scant amount of bilious appearing drainage. Eyes: General: appearance normal, both eyes and all related structures Neck: Neck: supple and no JVD Resp: Effort & Inspection: normal respiratory effort Auscultation: clear to auscultation bilaterally Cardio: Rate: regular rate Rhythm: regular rhythm Heart sounds: no gallops, no murmurs and no rubs GI: Inspection: non-distended GI Palp: Yes Soft to palpation, No Tenderness to palpation present (GI) and No Guarding due to palpation present (GI) Auscultation: normal bowel sounds Other: Bowel sounds present all 4 quadrants. Skin: General skin exam: No normal color ( Pale) Rashes: no rashes noted Wounds: no wounds Neuro: General: gait normal Speech: normal speech Motor exam (neuro): 5/5 motor strength present throughout Sensory Exam: No normal sensation Extrem: General: normal to inspection Other: patient freely And equally moving all extremities well without deficit. Psych: Mental Status: mental status grossly normal Affect: normal affect Objective Data Vital Signs Vital Signs: Vital Signs - 24 hr 01/20/25 16:45 01/20/25 20:00 01/20/25 20:00 Temperature Pulse Rate 70 Respiratory Rate Blood Pressure Pulse Oximetry 94 Oxygen Delivery Room Air Room Air 01/20/25 20:44 01/20/25 22:38 01/20/25 22:45 Temperature 98.8 F Pulse Rate 60 70 Respiratory Rate 16 Blood Pressure 161/91 H 144/72 H Pulse Oximetry 65 L Oxygen Delivery 01/21/25 00:00 01/21/25 04:00 01/21/25 05:02 Temperature 98.2 F Pulse Rate 69 74 60 Respiratory Rate 18 Blood Pressure 178/70 H Pulse Oximetry 97 Oxygen Delivery 01/21/25 08:04 01/21/25 10:37 01/21/25 12:05 Temperature 97.5 F L Pulse Rate 78 65 79 Respiratory Rate 18 Blood Pressure 173/81 H Pulse Oximetry 95 Oxygen Delivery Intake/Output Intake/Output: Intake & Output 01/18/25 01/19/25 01/20/25 01/21/25 23:59 23:59 23:59 23:59 Intake Total 1000 Output Total 2 Balance 998 Meds/Results Medications: Active Medications Generic Name Dose Route Start Last Admin Trade Name Freq PRN Reason Stop Dose Admin Acetaminophen 650 mg 01/20/25 16:41 Acetaminophen 325 Mg Tablet PO Q4H PRN Mild Pain (1-3) or Fever Aspirin 81 mg 01/21/25 08:00 01/21/25 11:28 Aspirin 81 Mg Chewable Tablet PO Not Given DAILY@0800 [facility] Atorvastatin Calcium 40 mg 01/21/25 09:00 01/21/25 11:28 Atorvastatin 40 Mg Tablet PO Not Given DAILY [facility] Carvedilol 3.125 mg 01/20/25 21:00 01/21/25 11:28 Carvedilol 3.125 Mg Tablet PO Not Given Q12HR [facility] Clopidogrel Bisulfate 75 mg 01/21/25 09:00 01/21/25 11:28 Clopidogrel Bisulfate 75 Mg Tablet PO Not Given DAILY [facility] Cyanocobalamin 500 mcg 01/21/25 09:00 01/21/25 11:28 Cyanocobalamin 500 Mcg Tablet PO Not Given QAM [facility] Famotidine 20 mg 01/21/25 09:00 01/21/25 11:29 Famotidine 20 Mg Tablet PO Not Given Q12HR [facility] Hydralazine HCl 10 mg 01/20/25 22:18 Hydralazine Hcl 20 Mg/Ml Vial IV PUSH Q8H PRN BP greater than 180/90 Azithromycin 500 mg in 250 mls @ 250 mls/hr 01/21/25 13:00 Zithromax IVPB Q24H NICKIE Ceftriaxone Sodium 1 gm in 50 mls @ 100 mls/hr 01/21/25 13:00 Rocephin 1 Gm/Ns 50 Ml IVPB Q24H [facility] Levothyroxine Sodium 75 mcg 01/21/25 06:30 01/21/25 06:43 Levothyroxine Sodium 75 Mcg Tablet PO Not Given DAILY@0630 [facility] Magnesium Oxide 400 mg 01/21/25 09:00 01/21/25 11:29 Magnesium Oxide 400 Mg Tablet PO Not Given DAILY [facility] Memantine 10 mg 01/20/25 21:00 01/21/25 11:29 Memantine 5 Mg Tablet PO Not Given Q12HR [facility] Ondansetron HCl 4 mg 01/20/25 16:41 Ondansetron Inj 4 Mg/2 Ml Vial IV PUSH Q6H PRN Nausea And Vomiting Pantoprazole Sodium 40 mg 01/21/25 09:00 01/21/25 11:29 Pantoprazole 40 Mg Tablet PO Not Given QAM NICKIE Polyethylene Glycol 17 gm 01/20/25 16:48 Polyethylene Glycol 3350 17 Gm Powd.Pack PO DAILY PRN Constipation Spironolactone 25 mg 01/21/25 09:00 01/21/25 11:29 Spironolactone 25 Mg Tablet PO Not Given DAILY [facility] Tramadol HCl 50 mg 01/20/25 16:48 Tramadol Hcl (*Crx) 50 Mg Tablet PO TID PRN Moderate Pain Vitamin D 1,000 units 01/21/25 09:00 01/21/25 11:28 Cholecalciferol 1,000 Units Tablet PO Not Given DAILY [facility] Labs Labs: Laboratory Results - last 24 hr 01/21/25 05:35 WBC 2.7 L RBC 3.02 L Hgb 10.7 L Hct 34.1 L MCV 112.9 H MCH 35.4 H MCHC 31.4 L RDW 13.5 Plt Count 159 MPV 10.5 H Immature Gran % (Auto) 0.0 Neut % (Auto) 77.2 H Lymph % (Auto) 13.6 L Howard % (Auto) 8.1 Eos % (Auto) 0.7 Baso % (Auto) 0.4 Lymph # (Auto) 0.37 L Howard # (Auto) 0.2 Eos # (Auto) 0.0 Baso # (Auto) 0.0 Abs Immat Gran (auto) 0.00 Absolute Neuts (auto) 2.1 Absolute Nucleated RBC 0.000 Nucleated RBC % 0.0 Sodium 136 L Potassium 3.6 Chloride 104 Carbon Dioxide 25 Anion Gap 7 BUN 18 H Creatinine 0.60 L Estim Creat Clear Calc 52 Estimated GFR > 60 Glucose 97 Calcium 9.4 Total Bilirubin 0.7 AST 33 ALT 16 Alkaline Phosphatase 77 Total Protein 6.0 L Albumin 3.4 L Quality VTE Prophylaxis VTE prophylaxis: mechanical ordered
[2025-01-21] MEDS: AZITHROMYCIN 500 MG/NS 250 ML 500 MG/250 ML BAG 250 MG IVPB (14:16)
--- NOTE | 2025-01-21 14:34 | P.CONS_ITS ---
Assessment and Plan Assessment and plan (1) Nausea & vomiting: Qualifiers: Vomiting type: unspecified Qualified Code(s): R11.2 - Nausea with vomiting, unspecified Code(s): R11.2 - Nausea with vomiting, unspecified Status: Acute Assessment and Plan: This could be due to partial small-bowel obstruction or ileus from her pneumonia. Nasogastric tube is in place now and her stomach is being decompressed. Output from the NG tube is bilious. Her abdomen however is relatively benign and she does not have an acute surgical abdomen. Continue NG tube decompression and bowel rest. We will likely get a water-soluble small bowel study tomorrow if possible. (2) Community acquired pneumonia: Qualifiers: Laterality: unspecified laterality Qualified Code(s): J18.9 - Pneumonia, unspecified organism Code(s): J18.9 - Pneumonia, unspecified organism Status: Acute Assessment and Plan: Started on broad-spectrum IV antibiotic. Management as per hospitalist service. HPI Data of Consult Date/Time: 01/20/25 Requesting Physician: TRESA Denson Primary Care Provider: Phil Garcia MD Consult Narrative Reason for consult: Nausea and vomiting, abnormal CT scan findings SBO vs pneumonia Narrative: Cheli Fischer is a 84 year old female transferred from [facility] initially presented with complaints of having a ground level fall striking her head. No loss of consciousness. Full workup emergency room showed no acute findings and she was discharged home. She returned to the emergency room later in the day with nausea vomiting but no abdominal pain. Workup with a CT scan abdomen pelvis showed some mildly thickened loops of small bowel and a possible transition point from mildly dilated small bowel to normal appearing small bowel in the right lower quadrant. CT scan the chest also showed consistent with a pneumonia versus aspiration. The patient has had multiple laparotomies in the past. He has had at least 2 bowel resections for small- bowel obstructions in the past as per the patient. 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 This evening a gastric tube is in place and her abdomen is mildly distended but she has no abdominal tenderness to palpation. Not passing any flatus or had any bowel movements. She has been started on IV antibiotics for her findings of pneumonia on CT scan. White blood cell count is normal. Lactic acid level is normal. Review of Systems 2 Review of Systems: The remainder of the review of systems to include constitutional, HEENT, cardiovascular, respiratory, GI, , integumentary, musculoskeletal, endocrine, immunologic, hematologic, psychiatric, and neurologic are all negative except for which is mentioned above in the HPI. [facility] Past Medical History Medical History Hypothyroidism Skin cancer Facial Iron deficiency anemia History of cervical fracture 2004, s/p surgery Irritable bowel syndrome GERD (gastroesophageal reflux disease) Small bowel obstruction 2014, 2018, 2022, 2024 COPD (chronic obstructive pulmonary disease) Coronary artery disease Peripheral vascular disease Myocardial infarction HLD (hyperlipidemia) Atrial fibrillation Hypertension Surgical History Surgical History History of bilateral cataract extraction History of incisional hernia repair Presence of internal carotid stent Left, 2015 Hx of CABG Family History Family History Father Hypertension Mother Hypertension Family history of malignant neoplasm of brain Sibling Family history of malignant neoplasm Social History Social History Smoking status: Former smoker Alcohol intake: never Substance use: never Substance use type: does not use Do You Feel Safe in your Home?: Yes Lack of Transportation: No Lack of Food: Never True Current Housing: I Have Housing Concerned About Future Housing: No Difficulty Paying Gas/Electric Bills: No Difficulty Paying for Meds: No Currently Unemployed: No Education: High School Diploma/GED Difficulty w/ Childcare or Family Care: No Living arrangements: with family Spiritual care concerns: No Meds Home Medications and Allergies Home Medications ?Medication ?Instructions ?Recorded ?Confirmed ?Type aspirin 81 mg capsule 81 mg PO DAILY 08/04/21 01/20/25 History atorvastatin 40 mg tablet 40 mg PO DAILY 08/04/21 01/20/25 History carvedilol 3.125 mg tablet 3.125 mg PO BID 08/04/21 01/20/25 History cholecalciferol (vitamin D3) 25 25 mcg PO DAILY 08/04/21 01/20/25 History mcg (1,000 unit) capsule (Vitamin D3) clopidogrel 75 mg tablet 75 mg PO DAILY 08/04/21 01/20/25 History famotidine 20 mg tablet 20 mg PO BID 08/04/21 01/20/25 History levothyroxine 75 mcg tablet 75 mcg PO DAILY 08/04/21 01/20/25 History pantoprazole 40 mg tablet,delayed 40 mg PO QAM 08/04/21 01/20/25 History release spironolactone 25 mg tablet 25 mg PO DAILY 08/04/21 01/20/25 History tramadol 50 mg tablet 50 mg PO TID PRN Pain 08/04/21 01/20/25 History acetaminophen 650 mg 650 mg PO Q8H 05/16/24 01/20/25 History tablet,extended release (Tylenol Arthritis Pain) mecobalamin (vitamin B12) 500 mcg 500 mcg PO DAILY 05/16/24 01/20/25 History chewable tablet polyethylene glycol 3350 17 17 g PO DAILY PRN Constipation 05/16/24 01/20/25 History gram/dose oral powder (Miralax) magnesium 100 mg tablet 500 mg PO DAILY 01/19/25 01/20/25 History memantine 5 mg tablet 10 mg PO BID 01/19/25 01/20/25 History azithromycin 500 mg intravenous 500 mg IV Q24H #1 ea 01/20/25 01/20/25 Rx solution (Zithromax) ceftriaxone 1 gram intravenous 1 g IV Q24H #1 ea 01/20/25 01/20/25 Rx solution Allergies Allergy/AdvReac Type Severity Reaction Status Date / Time morphine Allergy Anaphylaxis Verified 01/19/25 17:06 Vital Signs Vital Signs - 24 hr 01/20/25 16:45 01/20/25 20:00 01/20/25 20:00 Temperature Pulse Rate 70 Respiratory Rate Blood Pressure Pulse Oximetry 94 Oxygen Delivery Room Air Room Air 01/20/25 20:44 01/20/25 22:38 01/20/25 22:45 Temperature 37.1 C Pulse Rate 60 70 Respiratory Rate 16 Blood Pressure 161/91 H 144/72 H Pulse Oximetry 65 L Oxygen Delivery 01/21/25 00:00 01/21/25 04:00 01/21/25 05:02 Temperature 36.8 C Pulse Rate 69 74 60 Respiratory Rate 18 Blood Pressure 178/70 H Pulse Oximetry 97 Oxygen Delivery 01/21/25 08:04 01/21/25 08:15 01/21/25 10:37 Temperature 36.4 C L Pulse Rate 78 65 Respiratory Rate 18 Blood Pressure 173/81 H Pulse Oximetry 95 Oxygen Delivery Room Air 01/21/25 12:05 01/21/25 14:00 Temperature 36.6 C Pulse Rate 79 82 Respiratory Rate 16 Blood Pressure 178/68 H Pulse Oximetry 97 Oxygen Delivery Exam 2 Const: General: comfortable and no acute distress HENMT: Ears: TM's normal bilaterally Face/Nose/Sinus: Normal nares present (NG tube in place.) Mouth: Yes moist mucous membranes Eyes: General: appearance normal, both eyes and all related structures S clera: sclerae normal Pupils: Equal, round and reactive pupils present E OM: EOMs intact bilaterally Neck: Neck: supple and no JVD Resp: Effort & Inspection: normal respiratory effort Auscultation: clear to auscultation bilaterally Cardio: Rate: regular rate Rhythm: regular rhythm GI: Other: Abdomen is soft and mildly distended. No tenderness to palpation. She has large midline scar and left paramedian scar. She has abdominal wall diastasis but no obvious ventral hernia defects. No guarding no peritoneal signs. Skin: General skin exam: normal color and no rashes or lesions noted Neuro: General: gait normal Speech: normal speech Motor exam (neuro): 5 /5 motor strength present throughout Sensory Exam: normal sensation Extrem: General: normal to inspection Psych: Mental Status: mental status grossly normal Affect: normal affect Results Labs 01/21/25 05:35 01/21/25 05:35 Labs: Short CBC 01/21/25 Range/Units 05:35 WBC 2.7 L (4.5-10.0) K/mm3 Hgb 10.7 L (12.0-15.0) g/dL Hct 34.1 L (37.0-47.0) % Plt Count 159 (150-375) k/mm3 BMP 01/21/25 05:35 Sodium 136 L Potassium 3.6 Chloride 104 Carbon Dioxide 25 BUN 18 H Creatinine 0.60 L Glucose 97 Calcium 9.4 Liver Function 01/21/25 Range/Units 05:35 Total Bilirubin 0.7 (0.2-1.3) mg/dL AST 33 (14-36) U/L ALT 16 (6-35) U/L Alkaline Phosphatase 77 (38-126) U/L Albumin 3.4 L (3.5-5.1) g/dL Imaging Radiologist's impression: CT Scan Report Signed Patient: Cheli Fischer : 1940 MR#: [id number] Age: 84 Acct:[id number] Loc: [facility] 210CHS-1 ADM Date: 01/19/25Attending Dr: Eliezer Patricia M.D. Ordering Physician: Antonette Alcantara APRN Date of Service: 01/20/25 Procedure(s): CT chest abdomen pelvis wo con Accession Number(s): [id number] cc: Antonette Alcantara APRN; Phil Garcia MD; Eliezer Patricia MD~ EXAMINATION: CT chest abdomen pelvis wo con DATE: 01/20/2025 09:53 INDICATION: Nausea, vomiting and diarrhea. TECHNIQUE: Computed tomography (CT) of the chest, abdomen, and pelvis was performed without intravenous contrast. Automated exposure control and iterative reconstruction technique were employed. The dose-length product was 343.82 mGy- cm. COMPARISON: 04/26/2023 and 12/09/2022 FINDINGS: CHEST CT: Mild discoid atelectasis in the right lower lobe. Likely small regions of small groundglass opacities and centrilobular nodules with tree-in-bud appearance in the superior segment of the bilateral lower lobes suggesting endobronchial spread of disease which could be aspiration, pneumonia or pulmonary hemorrhage. Small left pleural effusion. Mild cardiomegaly. Atherosclerotic coronary artery calcification. Aortic valve calcification. Postoperative change of prior median sternotomy and coronary artery bypass grafting. No pericardial effusion. Ascending thoracic aortic aneurysm measuring up to 4.5 cm in maximal diameter. Enlargement of the central pulmonary arteries consistent with pulmonary arterial hypertension. No pathologically enlarged thoracic lymphadenopathy. Severe thoracic spondylosis. C6-C7 anterior spinal fusion with anterior plate-screw fixation. Bilateral rotator cuff calcific tendinitis. ABDOMEN/PELVIS CT: Multiple gallstones in the normal incompletely distended gallbladder. Liver, spleen, pancreas and right adrenal gland are normal. Unchanged 1.5 cm low- attenuation left adrenal adenoma. There is calcified atherosclerosis of the aorta and many of the other arteries including multiple renal arteries at the bilateral renal laurie. Bilateral kidneys are otherwise unremarkable. Bladder and uterus are unremarkable. Again seen are low-attenuation cystic lesions at the left ovary which are difficult to distinguish on the noncontrast imaging. Again seen is an intestinal malrotation with the colon, in the left abdomen and the jejunum extending caudally into the right lower quadrant. There is dilation of fluid-filled jejunum in the right abdomen with transition point in the right lower quadrant suspicious for small bowel obstruction. There does appear to be some wall thickening of the small bowel and differential would include ileus in the setting of an enteritis which would include ischemic given extensive vascular disease. Prior bowel surgery with anastomotic suture line along a loop of bowel in the anterior pelvis. No abscess, free intraperitoneal gas or fluid. Moderate lumbar spondylosis. Chondrocalcinosis and moderate right-sided and mild left-sided hip osteoarthritis. IMPRESSION: 1. Groundglass opacities and small centrilobular nodules with tree-in-bud pattern in the superior segments of the bilateral lower lobes which could be due to aspiration, pneumonia or pulmonary hemorrhage. 2. Small left pleural effusion. 3. 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 There are some wall thickening of the dilated bowel which could be related to the obstruction but also raises the possibility of an ileus in setting of enteritis which could be infectious, inflammatory or ischemic in etiology. 4. Ascending thoracic aortic aneurysm measuring up to 4.5 cm in diameter. 5. Extensive atherosclerotic calcifications along the aorta and many of the other arteries in the chest, abdomen and pelvis including prominently at the origin of the celiac axis, superior mesenteric and bilateral renal arteries. Unable to assess for degree of stenosis on noncontrast imaging. 6. A few cystic-appearing lesions at the left adnexa which are difficult to distinguish on the noncontrast imaging. Consider nonemergent follow-up pelvic ultrasound for further evaluation. Reviewed, dictated and finalized at location A.
--- NOTE | 2025-01-21 14:45 | WPDPN ---
Progress Note: A&P Assessment and Plan (1) Abnormal CT of the abdomen: Code(s): R93.5 - Abnormal findings on diagnostic imaging of other abdominal regions, including retroperitoneum Status: Acute Assessment and Plan: CT scan shows possible partial small-bowel obstruction. She could also have ileus from her pneumonia. Her abdominal exam clinically is benign. Will continue with nasogastric decompression for today. Get a water-soluble small bowel series. If contrast progresses to the colon then she either has a low grade small-bowel obstruction secondary to likely adhesions from her previous surgeries or an ileus from her pneumonia. At this point she still does not seem to have an acute surgical abdomen. Continue with expectant management. (2) Community acquired pneumonia: Qualifiers: Laterality: unspecified laterality Qualified Code(s): J18.9 - Pneumonia, unspecified organism Code(s): J18.9 - Pneumonia, unspecified organism Status: Acute Assessment and Plan: Continue with IV antibiotics as per hospitalist service. Subjective Date/time seen: 01/21/25 14:45 Interval history: Patient remains clinically stable. Is passing a small amount of flatus but no bowel movements. Denies any abdominal pain. Nasogastric tube is still in place and the output is less bilious. Continues on IV antibiotics for pneumonia. No fever. White blood cell count is actually low. Exam GI: Other: Abdomen is soft and mildly distended. It is completely nontender and benign by palpation. Objective Data Vital Signs Vital Signs: Vital Signs - 24 hr 01/20/25 16:45 01/20/25 20:00 01/20/25 20:00 Temperature Pulse Rate 70 Respiratory Rate Blood Pressure Pulse Oximetry 94 Oxygen Delivery Room Air Room Air 01/20/25 20:44 01/20/25 22:38 01/20/25 22:45 Temperature 37.1 C Pulse Rate 60 70 Respiratory Rate 16 Blood Pressure 161/91 H 144/72 H Pulse Oximetry 65 L Oxygen Delivery 01/21/25 00:00 01/21/25 04:00 01/21/25 05:02 Temperature 36.8 C Pulse Rate 69 74 60 Respiratory Rate 18 Blood Pressure 178/70 H Pulse Oximetry 97 Oxygen Delivery 01/21/25 08:04 01/21/25 08:15 01/21/25 10:37 Temperature 36.4 C L Pulse Rate 78 65 Respiratory Rate 18 Blood Pressure 173/81 H Pulse Oximetry 95 Oxygen Delivery Room Air 01/21/25 12:05 01/21/25 14:00 Temperature 36.6 C Pulse Rate 79 82 Respiratory Rate 16 Blood Pressure 178/68 H Pulse Oximetry 97 Oxygen Delivery Intake/Output Intake/Output: Intake & Output 01/18/25 01/19/25 01/20/25 01/21/25 23:59 23:59 23:59 23:59 Intake Total 1000 Output Total 2 Balance 998 Meds/Results Medications: Active Medications Generic Name Dose Route Start Last Admin Trade Name Freq PRN Reason Stop Dose Admin Acetaminophen 650 mg 01/20/25 16:41 Acetaminophen 325 Mg Tablet PO Q4H PRN Mild Pain (1-3) or Fever Aspirin 81 mg 01/21/25 08:00 01/21/25 11:28 Aspirin 81 Mg Chewable Tablet PO Not Given DAILY@0800 [facility] Atorvastatin Calcium 40 mg 01/21/25 09:00 01/21/25 11:28 Atorvastatin 40 Mg Tablet PO Not Given DAILY [facility] Carvedilol 3.125 mg 01/20/25 21:00 01/21/25 11:28 Carvedilol 3.125 Mg Tablet PO Not Given Q12HR [facility] Clopidogrel Bisulfate 75 mg 01/21/25 09:00 01/21/25 11:28 Clopidogrel Bisulfate 75 Mg Tablet PO Not Given DAILY [facility] Cyanocobalamin 500 mcg 01/21/25 09:00 01/21/25 11:28 Cyanocobalamin 500 Mcg Tablet PO Not Given QAM [facility] Famotidine 20 mg 01/21/25 09:00 01/21/25 11:29 Famotidine 20 Mg Tablet PO Not Given Q12HR [facility] Hydralazine HCl 10 mg 01/20/25 22:18 Hydralazine Hcl 20 Mg/Ml Vial IV PUSH Q8H PRN BP greater than 180/90 Azithromycin 500 mg in 250 mls @ 250 mls/hr 01/21/25 13:00 01/21/25 14:16 Zithromax IVPB 250 mls/hr Q24H NICKIE Administration Ceftriaxone Sodium 1 gm in 50 mls @ 100 mls/hr 01/21/25 13:00 01/21/25 13:23 Rocephin 1 Gm/Ns 50 Ml IVPB 100 mls/hr Q24H NICKIE Administration Ketorolac Tromethamine 30 mg 01/21/25 14:36 Ketorolac 30 Mg/Ml Vial (*Bkc) IV PUSH Q6H PRN Pain Rated 4-6 Levothyroxine Sodium 75 mcg 01/21/25 06:30 01/21/25 06:43 Levothyroxine Sodium 75 Mcg Tablet PO Not Given DAILY@0630 [facility] Magnesium Oxide 400 mg 01/21/25 09:00 01/21/25 11:29 Magnesium Oxide 400 Mg Tablet PO Not Given DAILY [facility] Memantine 10 mg 01/20/25 21:00 01/21/25 11:29 Memantine 5 Mg Tablet PO Not Given Q12HR [facility] Ondansetron HCl 4 mg 01/20/25 16:41 Ondansetron Inj 4 Mg/2 Ml Vial IV PUSH Q6H PRN Nausea And Vomiting Pantoprazole Sodium 40 mg 01/21/25 09:00 01/21/25 11:29 Pantoprazole 40 Mg Tablet PO Not Given QAM [facility] Polyethylene Glycol 17 gm 01/20/25 16:48 Polyethylene Glycol 3350 17 Gm Powd.Pack PO DAILY PRN Constipation Spironolactone 25 mg 01/21/25 09:00 01/21/25 11:29 Spironolactone 25 Mg Tablet PO Not Given DAILY [facility] Tramadol HCl 50 mg 01/20/25 16:48 Tramadol Hcl (*Crx) 50 Mg Tablet PO TID PRN Moderate Pain Vitamin D 1,000 units 01/21/25 09:00 01/21/25 11:28 Cholecalciferol 1,000 Units Tablet PO Not Given DAILY [facility] Labs Labs: Laboratory Results - last 24 hr 01/21/25 05:35 WBC 2.7 L RBC 3.02 L Hgb 10.7 L Hct 34.1 L MCV 112.9 H MCH 35.4 H MCHC 31.4 L RDW 13.5 Plt Count 159 MPV 10.5 H Immature Gran % (Auto) 0.0 Neut % (Auto) 77.2 H Lymph % (Auto) 13.6 L Pine % (Auto) 8.1 Eos % (Auto) 0.7 Baso % (Auto) 0.4 Lymph # (Auto) 0.37 L Pine # (Auto) 0.2 Eos # (Auto) 0.0 Baso # (Auto) 0.0 Abs Immat Gran (auto) 0.00 Absolute Neuts (auto) 2.1 Absolute Nucleated RBC 0.000 Nucleated RBC % 0.0 Sodium 136 L Potassium 3.6 Chloride 104 Carbon Dioxide 25 Anion Gap 7 BUN 18 H Creatinine 0.60 L Estim Creat Clear Calc 52 Estimated GFR > 60 Glucose 97 Calcium 9.4 Total Bilirubin 0.7 AST 33 ALT 16 Alkaline Phosphatase 77 Total Protein 6.0 L Albumin 3.4 L
--- OUTSIDE RECORDS SUMMARY | 2025-01-21 14:53 | XMS_ITS | Encounter Summary ---
Author Organization [facility] Address Formerly [facility] [place] [address] Care Team Providers Care Ehs Engineer Name Role Phone Phil Garcia MD Primary Care Provider [phone] Guy Su MD Unavailable Unavailabl Dionisio Balderas MD Unavailable [phone] Sb Gil APRN Unavailable [phone] Ban Dickerson MD Unavailable Encounter Details Date Type Department Care Team (Late Contact Info) Description 12/05/2017 Abstract [facility] CONVERSION [address] [place] [address] , Generic ConversionMD Social History [...] Description 05/15/2025 1:00 PM CDT Office Visit [facility] [place] [address] Ban Dickerson MD [address] [place] [phone] documented as of this encounter Visit Diagnoses Not on filedocumented in this encounter Care Teams Ehs Engineer Relationship Specialty Start Date End Date Phil Garcia MD [address] [place] [address] PCP - General INTERNAL MEDICINE 04/09/16 Guy Su MD [address] [place] [phone] [facility] Clinical Dermatologist CARDIOVASCULAR DISEASE 04/09/16 10/13/24 Dionisio Puga MD [address] [place] [address] Consulting Physician INTERVENTIONAL CARDIOLOGY 02/15/19 10/13/24 Sb Gil APRN [address] [place] [phone] Nurse Practitioner NURSE PRACTITIONER 02/15/19 10/13/24 Ban Dickerson MD [address] [place] [address] Premier Clinical Dermatologist CARDIOVASCULAR DISEASE 10/14/24 documented as of this encounter
--- OUTSIDE RECORDS SUMMARY | 2025-01-21 14:53 | XMS_ITS | Clinical Summary ---
Author Organization [facility] Address [facility] [place] [address] Care Team Providers Care Light Bulb Tester Name Role Phone Phil Garcia MD Primary Care Provider [phone] Chang Diallo MD Unavailable Allergies Active Allergy [...] Resolved Date SBO (small bowel obstruction ) ([facility]) 04/26/2023 05/15/2023 Encounters Date Type Department Care Team Description 12/20/2024 Telephone [facility] [address] [place] [address] Chang Diallo MD Results 12/15/2024 9:27 AM CDT - 12/15/2024 11:59 PM CDT Hospital Encounter [facility] [address] [place] [address] hCang Diallo MD Discharge Disposition: Home or Self Care (Routine Discharge) 12/15/2024 Travel 12/05/2024 Telephone [facility] [address] [place] [address] Chang Diallo MD Results 11/29/2024 Telephone [facility] [address] [place] [address] Chang Diallo MD Reschedule 11/22/2024 Telephone [facility] [address] [place] [address] Chang Diallo MD Refill Request 11/15/2024 Telephone [facility] [address] [place] [address] Chang Diallo MD Information 11/10/2024 10:30 AM LUBRICATION WORKER Telephone [facility] [address] [place] [address] Chang Diallo MD Holter Monitor 11/07/2024 Telephone [facility] [address] [place] [address] Chang Diallo MD Refill Request 11/03/2024 11:30 AM LUBRICATION WORKER Office Visit [facility] [address] [place] [address] [address] Chang Diallo MD Heart Problem 11/03/2024 Scan Formerly Named [facility] [address] [place] [address] Scanned, Doc Pccl 11/03/2024 Telephone Formerly Named [facility] [address] [place] [address] Chang Diallo MD Schedule Test 11/02/2024 [facility] [address] [address] Chang Diallo MD Appointment Reminder 11/02/2024 Orders Only Formerly Named [facility] [address] [place] [address] Chang Diallo MD from Last 3 Months [...] Never 04/26/2023 How often do you attend [facility] or sabianism services? Never 04/26/2023 Do you belong to any clubs o r organizations such as jain groups, unions, fraternal or athletic groups, or [...] and heating? Not hard at all 04/26/2023 [facility] of Occupat ional Health - Occupational Stress [...] Comments Blood Pressure 181/92 11/03/2024 1:31 PM LUBRICATION WORKER Pulse 54 11/03/2024 1:31 PM LUBRICATION WORKER Temperature 36.5 C (97.7 F) 05/15/2023 7:40 AM CDT Respiratory Rate 14 11/03/2024 1:31 PM LUBRICATION WORKER Oxygen Saturation 99% 11/03/2024 1:31 PM LUBRICATION WORKER Inhaled Oxygen Concentration - - Weight 57.6 kg (127 lb) 11/03/2024 1:31 PM LUBRICATION WORKER Height 162.6 cm (5' 4 ) 11/03/2024 1:31 PM LUBRICATION WORKER Body Mass Index 21.8 11/03/2024 1:31 PM LUBRICATION WORKER Plan of Treatment Upcoming Encounters Date Type Department Care Team (Late st Contact Info) Description 05/15/2025 1:00 PM CDT Office Visit [facility] [place] [address] Chang Diallo MD [address] [place] [address] Health Maintenance Due Date Last Done Comments [...] :32 AM CDT 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 MOBILE CONTINUOUS TELEMETRY Routine 11/24/2024 2:39 PM LUBRICATION WORKER 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 ELECTROCARDIOGRAM, TRACING Routine 11/03/2024 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 LIPID PANEL Routine 03/27/2013 12:00 AM CDT from Last 3 Months or Most Recently Relevant to Health Maintenance Results * USV CAROTID DUPLEX PAOLA (12/15/2024 10:32 AM CDT) Anatomical Region Laterality Modality Neck Ultrasound 12/15/2024 9:46 AM CDT Narrative 12/18/2024 10:25 AM CDT Outreach Carotid Ultrasound Vascular Report Pat.Name: Cheli Fischer cassia Pat.ID: [id number] .Date: 12/15/2024 Refer.MD: Outreach, [facility] Exam Time: 9:46:00 AM Study Type:OUTREACH CAROTID SCAN BILATERAL Height: 64 in Age: 12 1940,84Y Sex: F Sonogrphr: Aris Sampson [facility] Pat. Stat.:Outpatient Reason for Study:Bilateral carotid artery stenosis Procedures: Study performed at [facility], [place], [place] and interpreted by [facility]. [...] Ultrasound Vascular Report Pat.Name: Cheli Fischer Pat.ID: [id number] St.Date: 12/15/2024 [facility]: 9[facility]00 AM Study Type:OUTREACH CAROTID SCAN BILATERAL Height: 64 in Age: 12 1940,84Y Sex: F Sonogrphr: Buddy Sampsonsavanah [facility] Pat. Stat.:Outpatient Reason for Study:Bilateral carotid artery stenosis Procedures: Study performed at [place], [place] and interpreted by [facility]. ++++++++++++++++++++++++++++++++++++ FINDINGS: ++++++++++++++++++++++++++++++++++++ Rt ICA: [...] CDT Echocardiography Report Pat.Name: Cheli Fischer Pat.ID: [id number] .Date: 12/15/2024 Refer.MD: Whit, [facility] Exam Time: 10:11:00 AM Study Type:[facility] Height: 64 in Weight: 125 lb BSA: 1.6 m2 Age: 12 1940,84Y Sex: F Sonogrphr: Sf Pat. 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 2D, M-mode, Doppler, Color Flow [...] Echocardiography Report Pat.Name: Cheli Fischer cassia Li.ID: [id number] .Date: 12/15/2024 Refer.MD: Whit, [facility] Exam Time: 10:11:00 AM Study Type:OUTREACH Height: 64 in Weight: 125 lb BSA: 1.6 m2 Age: 12 1940,84Y Sex: F Sonogrphr: Sf Pat. 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 2D, M-mode, Doppler, Color Flow [...] MD ECHO Final Result * CLINIC - [id number] MCT - Today (11/24/2024 2:39 PM LUBRICATION WORKER) [facility] - 11/24/2024 2:39 PM LUBRICATION WORKER Baseline Rhythm * The baseline rhythm was [...] Signed CHANG DIALLO MD, MS, FACC, RVPI [facility] [place] us Chang Diallo MD CV VASCULAR ORDERABLES Final Res ult [facility] * NOT [facility] - ELECTROCARDIOGRAM, TRACING [...] 7:36 PM 05/15/2023 6:47 PM Care Teams Light Bulb Tester Relationship Specialty Start Date End Date Phil Garcia MD [address] [place] [address] PCP - General INTERNAL MEDICINE 04/09/16 Chang Diallo MD [address] [place] [address] [facility] Clinician CARDIOVASCULAR DISEASE 10/14/24
--- OUTSIDE RECORDS SUMMARY | 2025-01-21 14:53 | XMS_ITS | Encounter Summary ---
Author Organization [facility] Address [facility] [place] [address] Care Team Providers Care Wedding Decorator Name Role Phone Phil Garcia MD Primary Care Provider [phone] Guy Su MD Unavailable Unavailabl Dionisio Balderas MD Unavailable [phone] Sb Gil APRN Unavailable [phone] Ban Dickerson MD Unavailable Encounter Details Date Type Department Care Team (Late Contact Info) Description 05/02/2015 Abstract [facility] [address] [place] [address] Guy Su MD Social History Tobacco [...] Description 05/15/2025 1:00 PM CDT Office Visit [facility] [place] [address] Ban Dickerson MD [address] [place] [address] documented as of this encounter Visit Diagnoses Not on filedocumented in this encounter Care Teams Wedding Decorator Relationship Specialty Start Date End Date Phil Garcia MD [address] [place] [address] PCP - General INTERNAL MEDICINE 04/09/16 Guy Su MD [address] [place] [address] [place] Broke Beater Operator CARDIOVASCULAR DISEASE 04/09/16 10/13/24 Dionisio Puga MD [address] [place] [address] Consulting Physician INTERVENTIONAL CARDIOLOGY 02/15/19 10/13/24 Sb Gil APRN [address] [place] [address] Nurse Practitioner NURSE PRACTITIONER 02/15/19 10/13/24 Ban Dickerson MD [address] [place] [address] [place] Broke Beater Operator CARDIOVASCULAR DISEASE 10/14/24 documented as of this encounter
[2025-01-21] MEDS: KETOROLAC 30 MG/ML VIAL (*BKC) IV PUSH (18:42)
[2025-01-22] VITALS (11 sets, daily range): BP systolic 168–174; BP diastolic 77–82; PULSE 56–101; RESP 16–18; TEMP 36.1–36.9; O2SAT 97–98
[2025-01-22 05:42] LABS: Basophils Percent Auto 0.6 % (0.2-1.2); Eosinophils Percent Auto 0.3 % (0-4.4); Hematocrit 38.9 % (37.0-47.0); Hemoglobin 12.1 g/dL (12.0-15.0); Immature Granulocyte Absolute 0.01 K/mm3 (0.00-0.031); Immature Granulocyte Percent A 0.3 % (0-0.5); Lymphocytes Absolute Auto 0.35 K/mm3 (0.9-3.2); Lymphocytes Percent Auto 9.9 % (18.3-44.2); Mean Corpuscular HGB Conc 31.1 g/dl (32-36); Mean Corpuscular Hemoglobin 34.9 pg (26-34); Mean Corpuscular Volume 112.1 fl (80-100); Mean Platelet Volume 10.5 fl (7.4-10.4); Monocytes Absolute Auto 0.3 K/mm3 (0.1-0.6); Monocytes Percent Auto 8.2 % (2.6-8.5); Neutrophils Absolute Auto 2.9 K/mm3 (1.3-6.7); Neutrophils Percent Auto 80.7 % (45.5-73.1); Platelet Count Result 166 k/mm3 (150-375); Red Blood Count 3.47 M/mm3 (4.2-5.4); Red Cell Distribution Width 13.3 % (11.5-14.5); White Blood Count 3.6 K/mm3 (4.5-10.0)
[2025-01-22 05:53] LABS: Alanine Aminotransferase 21 U/L (6-35); Albumin Level 3.7 g/dL (3.5-5.1); Alkaline Phosphatase 91 U/L (38-126); Anion Gap 8 mmol/L (4-12); Aspartate Amino Transferase 32 U/L (14-36); Bilirubin,Total 0.6 mg/dL (0.2-1.3); Blood Urea Nitrogen 22 mg/dL (7-17); Calcium 9.6 mg/dL (8.4-10.2); Carbon Dioxide 29 mmol/L (22-30); Chloride 105 mmol/L (98-107); Estimated CRCL calculation 48 ml/min; Estimated Glomerular Filt Rate > 60; Glucose 76 mg/dL (65-110); Potassium 2.9 mmol/L (3.4-5.0); Sodium 142 mmol/L (137-145)
[2025-01-22 06:06] LABS: INR 1.1; Prothrombin Time 14.4 Seconds (11.1-14.7)
[2025-01-22 06:08] LABS: Anisocytosis 1+; Ovalocytes 1+; Platelet Estimate Adequate (Adequate); Schistocytes None Seen
[2025-01-22 06:37] LABS: Lactic Acid Reflex 1.1 mmol/L (0.7-2.0)
[2025-01-22] MEDS: POTASSIUM CHLORIDE INJ 40 MEQ in SODIUM CHLORIDE 0.9% IV 500 ML 130 MEQ IVPB (08:29)
[2025-01-22] MEDS: SODIUM CHLORIDE 0.9% IV 500 ML 130 ML (08:39)
--- NOTE | 2025-01-22 08:49 | P.PNIM_ITS ---
Progress Note: A&P Assessment and Plan (1) Sepsis: Qualifiers: Sepsis type: sepsis due to unspecified organism Sepsis acute organ dysfunction status: without acute organ dysfunction Qualified Code(s): A41.9 - Sepsis, unspecified organism Code(s): A41.9 - Sepsis, unspecified organism Status: Acute Assessment and Plan: - meets SIRS criteria: heart rate greater than 90 and temp greater than 100.4? F - lactic acid: 1.7 - 1L given upon presentation, continue at 100 mL/hour x2L - suspected source: Pneumonia - started on ceftriaxone and azithromycin on 01/20 - blood cultures drawn on 01/20 - UA showed trace protein, otherwise unremarkable - CT chest/abdomen/pelvis: 1. Groundglass opacities and small centrilobular nodules with tree-in-bud pattern in the superior segments of the bilateral lower lobes which could be due to aspiration, pneumonia or pulmonary hemorrhage. 2. Small left pleural effusion. 3. 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 There are some wall thickening of the dilated bowel which could be related to the obstruction but also raises the possibility of an ileus in setting of enteritis which could be infectious, inflammatory or ischemic in etiology. 4. Ascending thoracic aortic aneurysm measuring up to 4.5 cm in diameter. 5. Extensive atherosclerotic calcifications along the aorta and many of the other arteries in the chest, abdomen and pelvis including prominently at the origin of the celiac axis, superior mesenteric and bilateral renal arteries. Unable to assess for degree of stenosis on noncontrast imaging. 6. A few cystic-appearing lesions at the left adnexa which are difficult to distinguish on the noncontrast imaging. Consider nonemergent follow-up pelvic ultrasound for further evaluation. - hemodynamically stable, monitor 01/21/25: * VSS today and WBC's 2.7. * Continuing abx. Rocephin and Azithromycin. 01/22 * WBC 3.6, clinically improving (2) Community acquired pneumonia: Qualifiers: Laterality: unspecified laterality Qualified Code(s): J18.9 - Pneumonia, unspecified organism Code(s): J18.9 - Pneumonia, unspecified organism Status: Acute Assessment and Plan: - CXR: No acute cardiopulmonary disease, CT chest/abdomen/pelvis showed groundglass opacities and small centrilobular nodules with tree-in-bud pattern in the superior segments of the bilateral lower lobes which could be due to aspiration, pneumonia or pulmonary hemorrhage. - risk factors and complicating factors: SBO/ileus - started on CAP tx: Ceftriaxone and azithromycin on 01/20 - Viral PCR and MRSA PCR negative - check sputum culture if obtainable - no current supplemental O2 requirement, monitor 01/21/25: * Continue meds. * Not requiring O2. * Supportive treatment as needed. 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 There are some wall thickening of the dilated bowel which could be related to the obstruction but also raises the possibility of an ileus in setting of enteritis which could be infectious, inflammatory or ischemic in etiology. - NPO w/NG placement - General Surgery consulted - IV fluids: LR 100 mL/hour x2L - monitor I&Os 01/21/25: * Continue IVF * Continue NPO status 01/22 * Bowels moved with no further n/v, so consider d/c NG and trial of liquids (4) Gastroenteritis: Code(s): K52.9 - Noninfective gastroenteritis and colitis, unspecified Status: Acute Assessment and Plan: - CT showed SBO vs ileus in the setting of enteritis which could be infectious, inflammatory or ischemic in etiology. - check C diff and stool culture - IV fluids and antiemetics p.r.n. 01/22/25: * Continuing supportive care * Clinical picture suggests viral gastroenteritis (5) Hypertension: Qualifiers: Hypertension type: unspecified Qualified Code(s): I10 - Essential (primary) hypertension Code(s): I10 - Essential (primary) hypertension Status: Chronic Assessment and Plan: - Home medications: Coreg, spironolactone 01/21/25: * Stable. Continue current meds. 01/22/25 * 168/82 (6) Hypokalemia: Code(s): E87.6 - Hypokalemia Status: Acute Assessment and Plan: * Likely due to GI loss * 01/22 2.9, KCl 40 mEq IVPB over 4 hours (peripheral) ordered Subjective Date/time seen: 01/22/25 08:49 Interval history: Feeling much better. Mild dry cough. Had diarrhea x 7 after SB XR 01/21. No nausea or emesis with NG in place. Denied chest pain or sob. Denied blood in stool or emesis. Review of Systems Review of Systems: All systems reviewed & are unremarkable except as noted in HPI and below Exam Narrative: HEENT: PERRL, sclerae nonicteric, pharyngeal mucosa pink and intact NECK: No JVD CHEST: Clear to auscultation. Normal effort. HEART: NL S1/S2, regular, no murmur ABDOMEN: BS+, soft, nontender, no mass, no bruits EXTREMITIES: No cyanosis, edema, or clubbing NEUROLOGIC: CN intact and symmetric to inspection. MUSCULOSKELETAL: Tone and strength symmetric. PSYCH: Alert. Pleasant. Cooperative. Follows commands. Objective Data Vital Signs Vital Signs: Vital Signs - 24 hr 01/21/25 10:37 01/21/25 12:05 01/21/25 14:00 Temperature 97.5 F L 97.8 F Pulse Rate 65 79 82 Respiratory Rate 18 16 Blood Pressure 173/81 H 178/68 H Pulse Oximetry 95 97 Oxygen Delivery 01/21/25 16:04 01/21/25 20:05 01/21/25 20:05 Temperature Pulse Rate 74 94 Respiratory Rate Blood Pressure Pulse Oximetry Oxygen Delivery Room Air 01/21/25 21:41 01/22/25 00:00 01/22/25 04:00 Temperature 98.4 F Pulse Rate 70 85 88 Respiratory Rate 16 Blood Pressure 157/76 H Pulse Oximetry 96 Oxygen Delivery 01/22/25 05:25 01/22/25 06:52 Temperature 98.4 F Pulse Rate 80 Respiratory Rate 18 Blood Pressure 168/82 H Pulse Oximetry 98 Oxygen Delivery Intake/Output Intake/Output: Intake & Output 01/19/25 01/20/25 01/21/25 01/22/25 23:59 23:59 23:59 23:59 Intake Total 1000 Output Total 2 Balance 998 Meds/Results Medications: Active Medications Generic Name Dose Route Start Last Admin Trade Name Freq PRN Reason Stop Dose Admin Acetaminophen 650 mg 01/20/25 16:41 Acetaminophen 325 Mg Tablet PO Q4H PRN Mild Pain (1-3) or Fever Aspirin 81 mg 01/21/25 08:00 01/22/25 08:29 Aspirin 81 Mg Chewable Tablet PO Not Given DAILY@0800 [facility] Atorvastatin Calcium 40 mg 01/21/25 09:00 01/21/25 11:28 Atorvastatin 40 Mg Tablet PO Not Given DAILY [facility] Carvedilol 3.125 mg 01/20/25 21:00 01/21/25 21:32 Carvedilol 3.125 Mg Tablet PO Not Given Q12HR [facility] Clopidogrel Bisulfate 75 mg 01/21/25 09:00 01/21/25 11:28 Clopidogrel Bisulfate 75 Mg Tablet PO Not Given DAILY [facility] Cyanocobalamin 500 mcg 01/21/25 09:00 01/21/25 11:28 Cyanocobalamin 500 Mcg Tablet PO Not Given QAM [facility] Famotidine 20 mg 01/21/25 09:00 01/21/25 21:32 Famotidine 20 Mg Tablet PO Not Given Q12HR [facility] Hydralazine HCl 10 mg 01/20/25 22:18 Hydralazine Hcl 20 Mg/Ml Vial IV PUSH Q8H PRN BP greater than 180/90 Azithromycin 500 mg in 250 mls @ 250 mls/hr 01/21/25 13:00 01/21/25 14:16 Zithromax IVPB 250 mls/hr Q24H NICKIE Administration Ceftriaxone Sodium 1 gm in 50 mls @ 100 mls/hr 01/21/25 13:00 01/21/25 13:23 Rocephin 1 Gm/Ns 50 Ml IVPB 100 mls/hr Q24H NICKIE Administration Potassium Chloride 40 meq/ 520 mls @ 130 mls/hr 01/22/25 07:54 01/22/25 08:29 Sodium Chloride IVPB 01/22/25 11:53 130 mls/hr ONCE ONE Administration Ketorolac Tromethamine 30 mg 01/21/25 14:36 01/21/25 18:42 Ketorolac 30 Mg/Ml Vial (*Bkc) IV PUSH 30 mg Q6H PRN Administration Pain Rated 4-6 Levothyroxine Sodium 75 mcg 01/21/25 06:30 01/22/25 07:19 Levothyroxine Sodium 75 Mcg Tablet PO Not Given DAILY@0630 [facility] Magnesium Oxide 400 mg 01/21/25 09:00 01/21/25 11:29 Magnesium Oxide 400 Mg Tablet PO Not Given DAILY NICKIE Memantine 10 mg 01/20/25 21:00 01/21/25 21:33 Memantine 5 Mg Tablet PO Not Given Q12HR [facility] Ondansetron HCl 4 mg 01/20/25 16:41 Ondansetron Inj 4 Mg/2 Ml Vial IV PUSH Q6H PRN Nausea And Vomiting Pantoprazole Sodium 40 mg 01/21/25 09:00 01/21/25 11:29 Pantoprazole 40 Mg Tablet PO Not Given QAM NICKIE Polyethylene Glycol 17 gm 01/20/25 16:48 Polyethylene Glycol 3350 17 Gm Powd.Pack PO DAILY PRN Constipation Spironolactone 25 mg 01/21/25 09:00 01/21/25 11:29 Spironolactone 25 Mg Tablet PO Not Given DAILY [facility] Tramadol HCl 50 mg 01/20/25 16:48 Tramadol Hcl (*Crx) 50 Mg Tablet PO TID PRN Moderate Pain Vitamin D 1,000 units 01/21/25 09:00 01/21/25 11:28 Cholecalciferol 1,000 Units Tablet PO Not Given DAILY [facility] Radiology Results: ITS Impressions Upper GI and Small Bowel X-Ray 01/21/25 20:06 IMPRESSION: Malrotation. Small bowel bowel dilation, may be secondary to ileus or partial obstruction. Contrast reaches the large bowel between the one hour and 2 hour images. Labs Labs: Laboratory Results - last 24 hr 01/22/25 01/22/25 01/22/25 05:24 05:25 06:15 WBC 3.6 L RBC 3.47 L Hgb 12.1 Hct 38.9 MCV 112.1 H MCH 34.9 H MCHC 31.1 L RDW 13.3 Plt Count 166 MPV 10.5 H Immature Gran % (Auto) 0.3 Neut % (Auto) 80.7 H Lymph % (Auto) 9.9 L Arroyo % (Auto) 8.2 Eos % (Auto) 0.3 Baso % (Auto) 0.6 Lymph # (Auto) 0.35 L Arroyo # (Auto) 0.3 Eos # (Auto) 0.0 Baso # (Auto) 0.0 Abs Immat Gran (auto) 0.01 Absolute Neuts (auto) 2.9 Absolute Nucleated RBC 0.000 Band Neutrophils % Not Reportable Nucleated RBC % 0.0 Platelet Estimate Adequate Anisocytosis 1+ Ovalocytes 1+ Schistocytes None seen PT 14.4 INR 1.1 Sodium 142 Potassium 2.9 L Chloride 105 Carbon Dioxide 29 Anion Gap 8 BUN 22 H Creatinine 0.66 L Estim Creat Clear Calc 48 Estimated GFR > 60 Glucose 76 Lactic Acid 1.1 Calcium 9.6 Total Bilirubin 0.6 AST 32 ALT 21 Alkaline Phosphatase 91 Total Protein 6.0 L Albumin 3.7 Blood Type A Positive Antibody Screen Positive GREGORIA, IgG Interpret Positive GREGORIA, Poly Interpret Positive GREGORIA, Complement Interp Not Performed
--- NOTE | 2025-01-22 12:51 | P.PN_ITS ---
Progress Note: A&P Assessment and Plan (1) Small bowel obstruction: Code(s): K56.609 - Unspecified intestinal obstruction, unspecified as to partial versus complete obstruction Status: Acute Assessment and Plan: Patient's bowel function has returned. She may have had a low-grade small bowel obstruction due to adhesions but other possibilities could have been ileus from her diagnosis of pneumonia. He also had a fall and trauma can cause I read ileus. In any case small-bowel series showed no significant small-bowel obstruction. She is having bowel function now. Nasogastric tube has been removed she has been started on full liquids. Plan on advancing diet to solid food tomorrow as long she is tolerating diet today. Continue management of pneumonia as per hospitalist service. Does not appear to be needed any surgical interventions. Subjective Date/time seen: 01/22/25 12:51 Interval history: Patient doing well today. Water-soluble small bowel series yesterday she show contrast getting to the colon between 1 and 2hours. She has had multiple episodes of diarrhea stools since the small-bowel series. No nausea or vomiting today. No abdominal pain. White blood cell count is normal. Exam GI: Other: Abdomen is soft and nondistended. No tenderness to palpation. Exam is benign. Objective Data Vital Signs Vital Signs: Vital Signs - 24 hr 01/21/25 14:00 01/21/25 16:04 01/21/25 20:05 Temperature 36.6 C Pulse Rate 82 74 Respiratory Rate 16 Blood Pressure 178/68 H Pulse Oximetry 97 Oxygen Delivery Room Air 01/21/25 20:05 01/21/25 21:41 01/22/25 00:00 Temperature 36.9 C Pulse Rate 94 70 85 Respiratory Rate 16 Blood Pressure 157/76 H Pulse Oximetry 96 Oxygen Delivery 01/22/25 04:00 01/22/25 05:25 01/22/25 06:52 Temperature 36.9 C Pulse Rate 88 80 Respiratory Rate 18 Blood Pressure 168/82 H Pulse Oximetry 98 Oxygen Delivery 01/22/25 08:04 01/22/25 08:15 Temperature Pulse Rate 101 H Respiratory Rate Blood Pressure Pulse Oximetry Oxygen Delivery Room Air Intake/Output Intake/Output: Intake & Output 01/19/25 01/20/25 01/21/25 01/22/25 23:59 23:59 23:59 23:59 Intake Total 1000 Output Total 2 Balance 998 Meds/Results Medications: Active Medications Generic Name Dose Route Start Last Admin Trade Name Freq PRN Reason Stop Dose Admin Acetaminophen 650 mg 01/20/25 16:41 Acetaminophen 325 Mg Tablet PO Q4H PRN Mild Pain (1-3) or Fever Artificial Tears 1 drop 01/22/25 08:52 Artificial Tears Ophth Soln 15 Ml Bottle EACH EYE BID PRN Dry Eye(s) Aspirin 81 mg 01/21/25 08:00 01/22/25 08:29 Aspirin 81 Mg Chewable Tablet PO Not Given DAILY@0800 [facility] Atorvastatin Calcium 40 mg 01/21/25 09:00 01/22/25 10:36 Atorvastatin 40 Mg Tablet PO Not Given DAILY NICKIE Carvedilol 3.125 mg 01/20/25 21:00 01/22/25 10:36 Carvedilol 3.125 Mg Tablet PO Not Given Q12HR NICKIE Clopidogrel Bisulfate 75 mg 01/21/25 09:00 01/22/25 10:36 Clopidogrel Bisulfate 75 Mg Tablet PO Not Given DAILY NICKIE Cyanocobalamin 500 mcg 01/21/25 09:00 01/22/25 10:36 Cyanocobalamin 500 Mcg Tablet PO Not Given QAM NICKIE Famotidine 20 mg 01/21/25 09:00 01/22/25 10:37 Famotidine 20 Mg Tablet PO Not Given Q12HR NICKIE Hydralazine HCl 10 mg 01/20/25 22:18 Hydralazine Hcl 20 Mg/Ml Vial IV PUSH Q8H PRN BP greater than 180/90 Azithromycin 500 mg in 250 mls @ 250 mls/hr 01/21/25 13:00 01/21/25 14:16 Zithromax IVPB 250 mls/hr Q24H NICKIE Administration Ceftriaxone Sodium 1 gm in 50 mls @ 100 mls/hr 01/21/25 13:00 01/21/25 13:23 Rocephin 1 Gm/Ns 50 Ml IVPB 100 mls/hr Q24H NICKIE Administration Ketorolac Tromethamine 30 mg 01/21/25 14:36 01/21/25 18:42 Ketorolac 30 Mg/Ml Vial (*Bkc) IV PUSH 30 mg Q6H PRN Administration Pain Rated 4-6 Levothyroxine Sodium 75 mcg 01/21/25 06:30 01/22/25 07:19 Levothyroxine Sodium 75 Mcg Tablet PO Not Given DAILY@0630 [facility] Magnesium Oxide 400 mg 01/21/25 09:00 01/22/25 10:36 Magnesium Oxide 400 Mg Tablet PO Not Given DAILY NICKIE Memantine 10 mg 01/20/25 21:00 01/22/25 10:37 Memantine 5 Mg Tablet PO Not Given Q12HR [facility] Ondansetron HCl 4 mg 01/20/25 16:41 Ondansetron Inj 4 Mg/2 Ml Vial IV PUSH Q6H PRN Nausea And Vomiting Pantoprazole Sodium 40 mg 01/21/25 09:00 01/22/25 10:37 Pantoprazole 40 Mg Tablet PO Not Given QAM NICKIE Polyethylene Glycol 17 gm 01/20/25 16:48 Polyethylene Glycol 3350 17 Gm Powd.Pack PO DAILY PRN Constipation Spironolactone 25 mg 01/21/25 09:00 01/22/25 10:37 Spironolactone 25 Mg Tablet PO Not Given DAILY [facility] Tramadol HCl 50 mg 01/20/25 16:48 Tramadol Hcl (*Crx) 50 Mg Tablet PO TID PRN Moderate Pain Vitamin D 1,000 units 01/21/25 09:00 01/22/25 10:36 Cholecalciferol 1,000 Units Tablet PO Not Given DAILY [facility] Radiology Results: ITS Impressions Upper GI and Small Bowel X-Ray 01/21/25 20:06 IMPRESSION: Malrotation. Small bowel bowel dilation, may be secondary to ileus or partial obstruction. Contrast reaches the large bowel between the one hour and 2 hour images. Labs Labs: Laboratory Results - last 24 hr 01/22/25 01/22/25 01/22/25 05:24 05:25 06:15 WBC 3.6 L RBC 3.47 L Hgb 12.1 Hct 38.9 MCV 112.1 H MCH 34.9 H MCHC 31.1 L RDW 13.3 Plt Count 166 MPV 10.5 H Immature Gran % (Auto) 0.3 Neut % (Auto) 80.7 H Lymph % (Auto) 9.9 L [place] % (Auto) 8.2 Eos % (Auto) 0.3 Baso % (Auto) 0.6 Lymph # (Auto) 0.35 L [place] # (Auto) 0.3 Eos # (Auto) 0.0 Baso # (Auto) 0.0 Abs Immat Gran (auto) 0.01 Absolute Neuts (auto) 2.9 Absolute Nucleated RBC 0.000 Band Neutrophils % Not Reportable Nucleated RBC % 0.0 Platelet Estimate Adequate Anisocytosis 1+ Ovalocytes 1+ Schistocytes None seen PT 14.4 INR 1.1 Sodium 142 Potassium 2.9 L Chloride 105 Carbon Dioxide 29 Anion Gap 8 BUN 22 H Creatinine 0.66 L Estim Creat Clear Calc 48 Estimated GFR > 60 Glucose 76 Lactic Acid 1.1 Calcium 9.6 Total Bilirubin 0.6 AST 32 ALT 21 Alkaline Phosphatase 91 Total Protein 6.0 L Albumin 3.7 Blood Type A Positive Antibody Screen Positive GREGORIA, IgG Interpret Positive GREGORIA, Poly Interpret Positive GREGORIA, Complement Interp Not Performed
[2025-01-22 14:00] LABS: Anion Gap 11 mmol/L (4-12); Blood Urea Nitrogen 23 mg/dL (7-17); Calcium 9.4 mg/dL (8.4-10.2); Carbon Dioxide 26 mmol/L (22-30); Chloride 106 mmol/L (98-107); Estimated CRCL calculation 51 ml/min; Estimated Glomerular Filt Rate > 60; Glucose 105 mg/dL (65-110); Magnesium 1.9 mg/dL (1.6-2.3); Potassium 3.5 mmol/L (3.4-5.0); Sodium 143 mmol/L (137-145)
[2025-01-22] MEDS: AZITHROMYCIN 500 MG/NS 250 ML 500 MG/250 ML BAG 250 MG IVPB (14:27)
[2025-01-22] MEDS: MELATONIN 5 MG TABLET PO (21:39)
[2025-01-22] MEDS: FAMOTIDINE 20 MG TABLET PO (21:40)
[2025-01-22] MEDS: carvediloL 3.125 MG TABLET PO (21:40)
[2025-01-23] VITALS (7 sets, daily range): BP systolic 139–177; BP diastolic 70–77; PULSE 55–74; RESP 16–18; TEMP 36.2–36.3; O2SAT 97–98
[2025-01-23 05:37] LABS: Hematocrit 34.8 % (37.0-47.0); Hemoglobin 11.4 g/dL (12.0-15.0); Mean Corpuscular HGB Conc 32.8 g/dl (32-36); Mean Corpuscular Hemoglobin 35.1 pg (26-34); Mean Corpuscular Volume 107.1 fl (80-100); Mean Platelet Volume 10.4 fl (7.4-10.4); Platelet Count Result 172 k/mm3 (150-375); Red Blood Count 3.25 M/mm3 (4.2-5.4); Red Cell Distribution Width 13.1 % (11.5-14.5); White Blood Count 4.2 K/mm3 (4.5-10.0)
[2025-01-23 05:52] LABS: Anion Gap 5 mmol/L (4-12); Blood Urea Nitrogen 19 mg/dL (7-17); Calcium 9.2 mg/dL (8.4-10.2); Carbon Dioxide 29 mmol/L (22-30); Chloride 105 mmol/L (98-107); Estimated CRCL calculation 54 ml/min; Estimated Glomerular Filt Rate > 60; Glucose 93 mg/dL (65-110); Magnesium 1.8 mg/dL (1.6-2.3); Potassium 3.1 mmol/L (3.4-5.0); Sodium 139 mmol/L (137-145)
[2025-01-23] MEDS: LEVOTHYROXINE SODIUM 75 MCG TABLET PO (06:22)
[2025-01-23 06:55] LABS: Folic Acid 18.4 ng/mL (2.76->20); Vitamin B12 > 1000.0 pg/mL (239-931)
[2025-01-23] MEDS: POTASSIUM CHLORIDE 20 MEQ ER TABLET PO (09:20)
[2025-01-23] MEDS: MAGNESIUM OXIDE 400 MG TABLET PO (09:20)
[2025-01-23] MEDS: ATORVASTATIN 40 MG TABLET PO (09:21)
[2025-01-23] MEDS: MEMANTINE 5 MG TABLET 10 MG PO (09:21)
[2025-01-23] MEDS: ASPIRIN 81 MG CHEWABLE TABLET PO (09:21)
[2025-01-23] MEDS: CYANOCOBALAMIN 500 MCG TABLET PO (09:21)
[2025-01-23] MEDS: PANTOPRAZOLE 40 MG TABLET PO (09:21)
[2025-01-23] MEDS: CLOPIDOGREL BISULFATE 75 MG TABLET PO (09:21)
[2025-01-23] MEDS: CHOLECALCIFEROL 1,000 UNITS TABLET 1000 UNITS PO (09:21)
[2025-01-23] MEDS: SPIRONOLACTONE 25 MG TABLET PO (09:21)
[2025-01-23] MEDS: FAMOTIDINE 20 MG TABLET PO (09:21)
[2025-01-23] MEDS: carvediloL 3.125 MG TABLET PO (09:22)
[2025-01-23] MEDS: ACETAMINOPHEN 325 MG TABLET 650 MG PO (09:23)
[2025-01-23] MEDS: AZITHROMYCIN 500 MG/NS 250 ML 500 MG/250 ML BAG 250 MG IVPB (12:49)
--- NOTE | 2025-01-23 15:48 | P.PNGS_ITS ---
Progress Note: A&P Assessment and Plan (1) Small bowel obstruction: Code(s): K56.609 - Unspecified intestinal obstruction, unspecified as to partial versus complete obstruction Status: Acute Assessment and Plan: * Ileus versus partial small-bowel obstruction has resolved. Patient's bowels are moving and she is tolerating a solid diet. Patient is surgically stable for discharge when okay with the primary service. No follow-up needed. We will sign off. Call with any surgical questions or concerns. Plan I have discussed the patient's case and plan of care with Dr. Hubbard. Subjective Subjective Date/Time Seen: 01/23/25 15:48 Patient reports: tolerating a regular diet, flatus and bowel movement Interval history: Denies any abdominal pain. No acute changes overnight. Exam Const: General: comfortable and no acute distress GI: Inspection: non-distended GI Palp: Yes Soft to palpation, No Tenderness to palpation present (GI), No Guarding due to palpation present (GI) and No Rebound tenderness present Auscultation: normal bowel sounds Objective Data Vital Signs Vital Signs: Vital Signs - 24 hr 01/22/25 16:04 01/22/25 20:00 01/22/25 21:00 Temperature Pulse Rate 64 77 Respiratory Rate Blood Pressure Pulse Oximetry Oxygen Delivery Room Air 01/22/25 21:40 01/22/25 22:15 01/23/25 00:00 Temperature 97.1 F L Pulse Rate 68 56 L 67 Respiratory Rate 18 Blood Pressure 174/77 H Pulse Oximetry 98 Oxygen Delivery 01/23/25 04:00 01/23/25 06:00 01/23/25 08:00 Temperature 97.2 F L Pulse Rate 62 58 L Respiratory Rate 18 Blood Pressure 177/70 H Pulse Oximetry 97 Oxygen Delivery Room Air 01/23/25 09:22 01/23/25 14:00 Temperature 97.4 F L Pulse Rate 68 74 Respiratory Rate 16 Blood Pressure 139/77 Pulse Oximetry 98 Oxygen Delivery Intake/Output Intake/Output: Intake & Output 01/20/25 01/21/25 01/22/25 01/23/25 23:59 23:59 23:59 23:59 Intake Total 1300 1260 360 Output Total 2 Balance 1298 1260 360 Meds/Results Medications: Active Medications Generic Name Dose Route Start Last Admin Trade Name Freq PRN Reason Stop Dose Admin Acetaminophen 650 mg 01/20/25 16:41 01/23/25 09:23 Acetaminophen 325 Mg Tablet PO 650 mg Q4H PRN Administration Mild Pain (1-3) or Fever Artificial Tears 1 drop 01/22/25 08:52 Artificial Tears Ophth Soln 15 Ml Bottle EACH EYE BID PRN Dry Eye(s) Aspirin 81 mg 01/21/25 08:00 01/23/25 09:21 Aspirin 81 Mg Chewable Tablet PO 81 mg DAILY@0800 NICKIE Administration Atorvastatin Calcium 40 mg 01/21/25 09:00 01/23/25 09:21 Atorvastatin 40 Mg Tablet PO 40 mg DAILY NICKIE Administration Carvedilol 3.125 mg 01/20/25 21:00 01/23/25 09:22 Carvedilol 3.125 Mg Tablet PO 3.125 mg Q12HR NICKIE Administration Clopidogrel Bisulfate 75 mg 01/21/25 09:00 01/23/25 09:21 Clopidogrel Bisulfate 75 Mg Tablet PO 75 mg DAILY NICKIE Administration Cyanocobalamin 500 mcg 01/21/25 09:00 01/23/25 09:21 Cyanocobalamin 500 Mcg Tablet PO 500 mcg QAM NICKIE Administration Famotidine 20 mg 01/21/25 09:00 01/23/25 09:21 Famotidine 20 Mg Tablet PO 20 mg Q12HR NICKIE Administration Hydralazine HCl 10 mg 01/20/25 22:18 Hydralazine Hcl 20 Mg/Ml Vial IV PUSH Q8H PRN BP greater than 180/90 Azithromycin 500 mg in 250 mls @ 250 mls/hr 01/21/25 13:00 01/23/25 12:49 Zithromax IVPB 250 mls/hr Q24H NICKIE Administration Ceftriaxone Sodium 1 gm in 50 mls @ 100 mls/hr 01/21/25 13:00 01/23/25 12:48 Rocephin 1 Gm/Ns 50 Ml IVPB 100 mls/hr Q24H NICKIE Administration Ketorolac Tromethamine 30 mg 01/21/25 14:36 01/21/25 18:42 Ketorolac 30 Mg/Ml Vial (*Bk) IV PUSH 30 mg Q6H PRN Administration Pain Rated 4-6 Levothyroxine Sodium 75 mcg 01/21/25 06:30 01/23/25 06:22 Levothyroxine Sodium 75 Mcg Tablet PO 75 mcg DAILY@0630 NICKIE Administration Magnesium Oxide 400 mg 01/21/25 09:00 01/23/25 09:20 Magnesium Oxide 400 Mg Tablet PO 400 mg DAILY NICKIE Administration Melatonin 5 mg 01/22/25 18:53 01/22/25 21:39 Melatonin 5 Mg Tablet PO 5 mg HS PRN Administration Insomnia Memantine 10 mg 01/20/25 21:00 01/23/25 09:21 Memantine 5 Mg Tablet PO 10 mg Q12HR NICKIE Administration Ondansetron HCl 4 mg 01/20/25 16:41 Ondansetron Inj 4 Mg/2 Ml Vial IV PUSH Q6H PRN Nausea And Vomiting Pantoprazole Sodium 40 mg 01/21/25 09:00 01/23/25 09:21 Pantoprazole 40 Mg Tablet PO 40 mg QAM NICKIE Administration Polyethylene Glycol 17 gm 01/20/25 16:48 Polyethylene Glycol 3350 17 Gm Powd.Pack PO DAILY PRN Constipation Spironolactone 25 mg 01/21/25 09:00 01/23/25 09:21 Spironolactone 25 Mg Tablet PO 25 mg DAILY NICKIE Administration Tramadol HCl 50 mg 01/20/25 16:48 Tramadol Hcl (*Crx) 50 Mg Tablet PO TID PRN Moderate Pain Vitamin D 1,000 units 01/21/25 09:00 01/23/25 09:21 Cholecalciferol 1,000 Units Tablet PO 1,000 units DAILY NICKIE Administration Radiology Results: ITS Impressions Upper GI and Small Bowel X-Ray 01/21/25 20:06 IMPRESSION: Malrotation. Small bowel bowel dilation, may be secondary to ileus or partial obstruction. Contrast reaches the large bowel between the one hour and 2 hour images. Labs Labs: Laboratory Results - last 24 hr 01/22/25 01/23/25 05:24 05:23 WBC 4.2 L RBC 3.25 L Hgb 11.4 L Hct 34.8 L MCV 107.1 H MCH 35.1 H MCHC 32.8 RDW 13.1 Plt Count 172 MPV 10.4 Sodium 139 Potassium 3.1 L Chloride 105 Carbon Dioxide 29 Anion Gap 5 BUN 19 H Creatinine 0.58 L Estim Creat Clear Calc 54 Estimated GFR > 60 Glucose 93 Calcium 9.2 Magnesium 1.8 Vitamin B12 > 1000.0 H Folate 18.4 Antibody Identification Warm Auto Antibody Antigen Identification TNP
--- NOTE | 2025-01-23 16:10 | P.DS_ITS ---
DS: Admitting Diagnosis Discharge Date 01/23/25 Admitting Diagnosis Nausea, Vomiting, Diarrhea DS: Discharge Diagnosis Discharge Diagnosis (1) Sepsis: Qualifiers: Sepsis type: sepsis due to unspecified organism Sepsis acute organ dysfunction status: without acute organ dysfunction Qualified Code(s): A41.9 - Sepsis, unspecified organism Code(s): A41.9 - Sepsis, unspecified organism Status: Acute Assessment and Plan: - meets SIRS criteria: heart rate greater than 90 and temp greater than 100.4? F - lactic acid: 1.7 - 1L given upon presentation, continue at 100 mL/hour x2L - suspected source: Pneumonia - started on ceftriaxone and azithromycin on 01/20 - blood cultures drawn on 01/20 - UA showed trace protein, otherwise unremarkable - CT chest/abdomen/pelvis: 1. Groundglass opacities and small centrilobular nodules with tree-in-bud pattern in the superior segments of the bilateral lower lobes which could be due to aspiration, pneumonia or pulmonary hemorrhage. 2. Small left pleural effusion. 3. 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 There are some wall thickening of the dilated bowel which could be related to the obstruction but also raises the possibility of an ileus in setting of enteritis which could be infectious, inflammatory or ischemic in etiology. 4. Ascending thoracic aortic aneurysm measuring up to 4.5 cm in diameter. 5. Extensive atherosclerotic calcifications along the aorta and many of the other arteries in the chest, abdomen and pelvis including prominently at the origin of the celiac axis, superior mesenteric and bilateral renal arteries. Unable to assess for degree of stenosis on noncontrast imaging. 6. A few cystic-appearing lesions at the left adnexa which are difficult to distinguish on the noncontrast imaging. Consider nonemergent follow-up pelvic ultrasound for further evaluation. - hemodynamically stable, monitor 01/21/25: * VSS today and WBC's 2.7. * Continuing abx. Rocephin and Azithromycin. 01/22 * WBC 3.6, clinically improving (2) Community acquired pneumonia: Qualifiers: Laterality: unspecified laterality Qualified Code(s): J18.9 - Pneumonia, unspecified organism Code(s): J18.9 - Pneumonia, unspecified organism Status: Acute Assessment and Plan: - CXR: No acute cardiopulmonary disease, CT chest/abdomen/pelvis showed groundglass opacities and small centrilobular nodules with tree-in-bud pattern in the superior segments of the bilateral lower lobes which could be due to aspiration, pneumonia or pulmonary hemorrhage. - risk factors and complicating factors: SBO/ileus - started on CAP tx: Ceftriaxone and azithromycin on 01/20 - Viral PCR and MRSA PCR negative - check sputum culture if obtainable - no current supplemental O2 requirement, monitor 01/21/25: * Continue meds. * Not requiring O2. * Supportive treatment as needed. 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 There are some wall thickening of the dilated bowel which could be related to the obstruction but also raises the possibility of an ileus in setting of enteritis which could be infectious, inflammatory or ischemic in etiology. - NPO w/NG placement - General Surgery consulted - IV fluids: LR 100 mL/hour x2L - monitor I&Os 01/21/25: * Continue IVF * Continue NPO status 01/22 * Bowels moved with no further n/v, so consider d/c NG and trial of liquids (4) Gastroenteritis: Code(s): K52.9 - Noninfective gastroenteritis and colitis, unspecified Status: Acute Assessment and Plan: - CT showed SBO vs ileus in the setting of enteritis which could be infectious, inflammatory or ischemic in etiology. - check C diff and stool culture - IV fluids and antiemetics p.r.n. 01/22/25: * Continuing supportive care * Clinical picture suggests viral gastroenteritis (5) Hypertension: Qualifiers: Hypertension type: unspecified Qualified Code(s): I10 - Essential (primary) hypertension Code(s): I10 - Essential (primary) hypertension Status: Chronic Assessment and Plan: - Home medications: Coreg, spironolactone 01/21/25: * Stable. Continue current meds. 01/22/25 * 168/82 (6) Hypokalemia: Code(s): E87.6 - Hypokalemia Status: Acute Assessment and Plan: * Likely due to GI loss * / 2.9, KCl 40 mEq IVPB over 4 hours (peripheral) ordered DS: Summary Hospital Course Hospital Course: 84 y/o female was admitted with c/o abdominal pain and found to have ileus, patient was placed on NG tube, NPO, with bowl rest, patient was seen by surgery service recommended conservative management, bowl rest, patient started to have gas as x-ray showed ileus, patient clinicall symptoms improved and NG tube was removed started on clear liquids and advance as tolerated, today patient was able to tolerate her regular diet, upon arrival patient chest scan was concerning for pneumonia, patient suspect patient had CAP and started patient on ceftriaoxone and zithromax, her symptoms have improved will discharge patient on Augmentin, patient was seen by surgery service and okay to discharge patient today. Time Spent with Patient Time attestation: Total time spent providing and/or coordinating discharge services: DS: Data Data Completed and Pending Labs on day of discharge: Labs from last 24 hours 01/23/25 01/22/25 05:23 05:24 WBC 4.2 L RBC 3.25 L Hgb 11.4 L Hct 34.8 L MCV 107.1 H MCH 35.1 H MCHC 32.8 RDW 13.1 Plt Count 172 MPV 10.4 Sodium 139 Potassium 3.1 L Chloride 105 Carbon Dioxide 29 Anion Gap 5 BUN 19 H Creatinine 0.58 L Estim Creat Clear Calc 54 Estimated GFR > 60 Glucose 93 Calcium 9.2 Magnesium 1.8 Vitamin B12 > 1000.0 H Folate 18.4 Antibody Identification Warm Auto Antibody Antigen Identification TNP Preliminary micro results at discharge 01/20/25 17:09 Blood Culture - Preliminary Blood 01/20/25 17:09 Blood Culture - Preliminary Blood Discharge Plan Discharge Attending physician on discharge: Krista Verde Consulting providers: Hever Hubbard Discharging Clinician: Luis Emmanuel Patient Disposition: Home Activity: as tolerated Diet: heart healthy Discharge Instructions: patient to follow up with her primary care provider as soon as possible, patient is instructed if any symptoms redevelop to go to nearest ER. Patient Instructions: Antibiotic Form, Amoxicillin/Clavulanate Potassium (By mouth), Melatonin (By mouth) Patient Language: Swedish Stand Alone Forms: General Discharge Information Follow-up/Referrals: Phil Garcia MD [Primary Care Provider] - Discharge Medications: New melatonin 5 mg Tablet 5 mg PO HS PRN (Reason: Insomnia) Qty: 30 0RF amoxicillin-pot clavulanate [Augmentin] 500-125 mg tablet 1 tablet PO Q8H Qty: 15 0RF Continued memantine 5 mg tablet 10 mg PO BID magnesium 100 mg tablet 500 mg PO DAILY acetaminophen [Tylenol Arthritis Pain] 650 mg Tablet Extended Release 650 mg PO Q8H mecobalamin (vitamin B12) 500 mcg Tablet,Chewable 500 mcg PO DAILY polyethylene glycol 3350 [Miralax] 17 gram/dose Powder 17 g PO DAILY PRN (Reason: Constipation) atorvastatin 40 mg tablet 40 mg PO DAILY clopidogrel 75 mg tablet 75 mg PO DAILY tramadol 50 mg tablet 50 mg PO TID PRN (Reason: Pain) spironolactone 25 mg tablet 25 mg PO DAILY carvedilol 3.125 mg tablet 3.125 mg PO BID levothyroxine 75 mcg Tablet 75 mcg PO DAILY famotidine 20 mg tablet 20 mg PO BID pantoprazole 40 mg Tablet,Delayed Release (Dr/Ec) 40 mg PO QAM cholecalciferol (vitamin D3) [Vitamin D3] 25 mcg (1,000 unit) Capsule 25 mcg PO DAILY aspirin 81 mg Capsule 81 mg PO DAILY Discontinued ceftriaxone 1 gram Recon Soln 1 g IV Q24H Qty: 1 0RF azithromycin [Zithromax] 500 mg Recon Soln 500 mg IV Q24H Qty: 1 0RF Date of admission: 01/21/25 11:52 Primary Care Provider: Phil Garcia Admitting Provider: Eliezer Patricia Attending physician on admission: Krista Verde Condition: Stable
== END 2025-01-23 16:46 | disposition home or self-care (01) | DRG 871 ==
PROVIDERS: Internal Medicine; Student in an Organized Health Care Education/Training Program; Surgery; Admitting Provider Internal Medicine; PCP Internal Medicine; Visit Provider Family Medicine
DX: A41.9 Sepsis, unspecified organism (principal); J18.9 Pneumonia, unspecified organism; J44.0 Chronic obstructive pulmonary disease with (acute) lower respiratory infection; K56.7 Ileus, unspecified; K56.600 Partial intestinal obstruction, unspecified as to cause; K52.9 Noninfective gastroenteritis and colitis, unspecified; I10 Essential (primary) hypertension; E87.6 Hypokalemia; I25.10 Atherosclerotic heart disease of native coronary artery without angina pectoris; E78.5 Hyperlipidemia, unspecified; I73.9 Peripheral vascular disease, unspecified; E03.9 Hypothyroidism, unspecified; F03.90 Unspecified dementia, unspecified severity, without behavioral disturbance, psychotic disturbance, mood disturbance, and anxiety; D50.9 Iron deficiency anemia, unspecified; K21.9 Gastro-esophageal reflux disease without esophagitis; I48.91 Unspecified atrial fibrillation; I71.20 Thoracic aortic aneurysm, without rupture, unspecified; I25.2 Old myocardial infarction; Z95.1 Presence of aortocoronary bypass graft; Z95.5 Presence of coronary angioplasty implant and graft
CPT/HCPCS: 36415; 74250; 80048; 80053; 82607; 82746; 83605; 83735; 85025; 85027; 85610; 86850; 86860; 86870; 86880; 86900; 86901; 86902; 86971; 86978; 87040; A9270; G0378; J0456; J0696; J1885; J3480; J7040; J7120

== ENCOUNTER 2025-01-31 13:16 | Outpatient (CLI) | payer MEDICARE, SELFPAY ==
[2025-01-31 13:29] LABS: Hematocrit 39.5 % (35.0-42.0); Hemoglobin 12.3 g/dL (11.7-13.8); Mean Corpuscular HGB Conc 31.1 g/dL (32-36); Mean Corpuscular Hemoglobin 34.9 pg (27.0-31.0); Mean Corpuscular Volume 112.2 fL (78.0-102.0); Platelet Count Result 290 K/mm3 (150-420); Red Blood Count 3.52 M/mm3 (4.20-5.40); Red Cell Distribution Width 13.2 % (11.6-14.4); White Blood Count 4.5 K/mm3 (4.8-10.8)
--- OUTSIDE RECORDS SUMMARY | 2025-01-31 13:39 | XMS_ITS | Encounter Summary ---
Author Organization [facility] Address [facility] [place] [address] Care Team Providers Care Customer Sales Advisor Name Role Phone Phil Garcia MD Primary Care Provider [phone] Guy Su MD Unavailable Unavailabl Dionisio Balderas MD Unavailable [phone] Sb Gil APRN Unavailable [phone] Ban Dickerson MD Unavailable Encounter Details Date Type Department Care Team (Late Contact Info) Description 12/05/2017 Abstract [facility] CONVERSION [address] [place] [address] , Generic ConversionMD Social History [...] Description 05/15/2025 1:00 PM CDT Office Visit [facility] [place] [address] Ban Dickerson MD [address] [place] [phone] documented as of this encounter Visit Diagnoses Not on filedocumented in this encounter Care Teams Customer Sales Advisor Relationship Specialty Start Date End Date Phil Garcia MD [address] [place] [address] PCP - General INTERNAL MEDICINE 04/09/16 Guy Su MD [address] [place] [phone] [place] [employer] CARDIOVASCULAR DISEASE 04/09/16 10/13/24 Dionisio Puga MD [address] [place] [address] Consulting Physician INTERVENTIONAL CARDIOLOGY 02/15/19 10/13/24 Sb Gil APRN [address] [place] [phone] Nurse Practitioner NURSE PRACTITIONER 02/15/19 10/13/24 Ban Dickerson MD [address] [place] [address] [place] [employer] CARDIOVASCULAR DISEASE 10/14/24 documented as of this encounter
--- OUTSIDE RECORDS SUMMARY | 2025-01-31 13:40 | XMS_ITS | Clinical Summary ---
Author Organization [facility] Address [facility] [place] [address] Care Team Providers Care Impersonator Character Name Role Phone Phil Garcia MD Primary Care Provider Chang Diallo MD Unavailable Allergies Active Allergy [...] Resolved Date SBO (small bowel obstruction ) ([facility]) 04/26/2023 05/15/2023 Encounters Date Type Department Care Team Description 12/20/2024 Telephone [facility] [address] [place] [address] Chang Diallo MD Results 12/15/2024 9:27 AM CDT - 12/15/2024 11:59 PM CDT Hospital Encounter [facility] [address] [address] Chang Diallo MD Discharge Disposition: Home or Self Care (Routine Discharge) 12/15/2024 Travel 12/05/2024 Telephone [facility] [address] [place] [address] Chang Diallo MD Results 11/29/2024 Telephone [facility] [address] [place] [address] Chang Diallo MD Reschedule 11/22/2024 Telephone [facility] [address] [place] [address] Chang Diallo MD Refill Request 11/15/2024 Telephone [facility] [address] [place] [address] Chang Diallo MD Information 11/10/2024 10:30 AM [employer] Telephone [facility] [address] [place] [address] Chang Diallo MD Holter Monitor 11/07/2024 Telephone [facility] [address] [place] [address] Chang Diallo MD Refill Request 11/03/2024 11:30 AM [employer] Office Visit [facility] [address] Chang Diallo MD Heart Problem 11/03/2024 Scan [facility] [address] [place] [address] Scanned, Doc Pccl 11/03/2024 Telephone [facility] [address] [place] [address] Chang Diallo MD Schedule Test from Last 3 Months Family History Medical [...] 04/26/2023 How often do you attend chur or yazidi services? Never 04/26/2023 Do you belong to any clubs o r organizations such as latter day groups, unions, fraternal or athletic groups, or [...] and heating? Not hard at all 04/26/2023 [facility] - [facility] [...] place to sleep or slept in a halfway (including now)? No 04/26/2023 Comments Unknown Sex [...] Comments Blood Pressure 181/92 11/03/2024 1:31 PM [employer] Pulse 54 11/03/2024 1:31 PM [employer] Temperature 36.5 C (97.7 F) 05/15/2023 7:40 AM CDT Respiratory Rate 14 11/03/2024 1:31 PM [employer] Oxygen Saturation 99% 11/03/2024 1:31 PM [employer] Inhaled Oxygen Concentration - - Weight 57.6 kg (127 lb) 11/03/2024 1:31 PM [employer] Height 162.6 cm (5' 4 ) 11/03/2024 1:31 PM [employer] Body Mass Index 21.8 11/03/2024 1:31 PM [employer] Plan of Treatment Upcoming Encounters Date Type Department Care Team (Late st Contact Info) Description 05/15/2025 1:00 PM CDT [facility] [place] [address] Chang Diallo MD [address] [place] [address] Health Maintenance Due Date Last Done Comments [...] and discharge planning Lifestyle No Padma Goodson director data processing Procedure Name Priority Date/Time Associated Diagnosis Comments USV CAROTID DUPLEX PAOLA Routine 10:32 AM CDT Bilateral carotid artery stenosis USE ECHOCARDIOGRAM Routine 12/15/2024 10 :32 AM CDT 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 MOBILE CONTINUOUS TELEMETRY Routine 11/24/2024 2:39 PM [employer] 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 ELECTROCARDIOGRAM, TRACING Routine 11/03/2024 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 LIPID PANEL Routine 03/27/2013 12:00 AM CDT from Last 3 Months or Most Recently Relevant to Health Maintenance Results * USV CAROTID DUPLEX PAOLA (12/15/2024 10:32 AM CDT) Anatomical Region Laterality Modality Neck Ultrasound 12/15/2024 9:46 AM CDT Narrative 12/18/2024 10:25 AM CDT Outreach Carotid Ultrasound Vascular Report Pat.Name: Cheli Fischer Pat.ID: [id number] .Date: 12/15/2024 [facility]: 9:46:00 AM Study Type:OUTREACH CAROTID SCAN BILATERAL Height: 64 in Age: 12 1940,84Y Sex: F Sonogrphr: Aris Sampson [facility] Pat. Stat.:Outpatient Reason for Study:Bilateral carotid artery stenosis Procedures: Study performed at [place], [place] and interpreted by [facility]. ++++++++++++++++++++++++++++++++++++ FINDINGS: ++++++++++++++++++++++++++++++++++++ Rt ICA: [...] Ultrasound Vascular Report Pat.Name: Cheli Fischer Pat.ID: [id number] .Date: 12/15/2024 Refer.MD: Whit, [facility] Exam Time: 9:46:00 AM Study Type:OUTREACH CAROTID SCAN BILATERAL Height: 64 in Age: 12 1940,84Y Sex: F Sonogrphr: Aris Sampson [facility] Pat. Stat.:Outpatient Reason for Study:Bilateral carotid artery stenosis Procedures: Study performed at [facility], [place], [place] and interpreted by [facility]. ++++++++++++++++++++++++++++++++++++ FINDINGS: ++++++++++++++++++++++++++++++++++++ Rt ICA: [...] Chang Diallo M.D. us Chang Diallo MD [facility] Final Result * USE ECHOCARDIOGRAM (12/15/2024 10:32 AM CDT) Anatomical Region Laterality Modality Cardiac Ultrasound 12/15/2024 10:1 1 AM CDT Narrative 12/18/2024 10:51 AM CDT Echocardiography Report Pat.Name: Cheli Fischer Pat.ID: [id number] St.Date: 12/15/2024 Refer.MD: Whit, [facility] Exam Time: 10:11:00 AM Study Type:[facility] Height: 64 in Weight: 125 lb BSA: 1.6 m2 Age: 12 1940,84Y Sex: F Sonogrphr: Sf Pat. 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 2D, M-mode, Doppler, Color Flow [...] 12/18/2024 Echocardiography Report Pat.Name: Cheli Fischer Pat.ID: [id number] .Date: 12/15/2024 Refer.MD: Whit, [facility] Exam Time: 10:11:00 AM Study Type:[facility] Height: 64 in Weight: 125 lb BSA: 1.6 m2 Age: 12 1940,84Y Sex: F Sonogrphr: Pat. 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 2D, M-mode, Doppler, Color Flow [...] Chang Diallo MD ECHO Final Result * [facility] - [id number] [facility] - Today (11/24/2024 2:39 PM [employer]) [facility] - 11/24/2024 2:39 PM [employer] Baseline Rhythm * The baseline rhythm was [...] Signed CHANG DIALLO MD, MS, FACC, RVPI [facility] [place], [place] us Chang Diallo MD CV VASCULAR ORDERABLES Final Res ult [facility] * NOT [facility] - ELECTROCARDIOGRAM, TRACING [...] Relevant to Health Maintenance Insurance MEDICARE MEDICARE [facility] Advance Directives * Full Code (Latest Code Status on File) Date Activated Date Inactivated Comments 04/26/2023 7:36 PM 05/15/2023 6:47 PM Care Teams Impersonator Character Relationship Specialty Start Date End Date Phil Garcia MD [address] [place] [address] PCP - General INTERNAL MEDICINE 04/09/16 Chang Diallo MD [address] [place] [address] [employer] CARDIOVASCULAR DISEASE 10/14/24
--- OUTSIDE RECORDS SUMMARY | 2025-01-31 13:40 | XMS_ITS | Encounter Summary ---
Author Organization [facility] Address [facility] [place] [address] Care Team Providers Care [employer] Worker Name Role Phone Phil Garcia MD Primary Care Provider [phone] Guy Su MD Unavailable Unavailabl Dionisio Balderas MD Unavailable [phone] Sb Gil APRN Unavailable [phone] Ban Dickerson MD Unavailable Encounter Details Date Type Department Care Team (Late Contact Info) Description 05/02/2015 Abstract [facility] [address] [place] [phone] Guy Su MD Social History Tobacco [...] Upcoming Encounters Date Type Department Care Team ([facility] Contact Info) Description 05/15/2025 1:00 PM CDT Office Visit [facility] [place] [address] Ban Dickerson MD [address] [place] [phone] documented as of this encounter Visit Diagnoses Not on filedocumented in this encounter Care Teams [employer] Worker Relationship Specialty Start Date End Date Phil Garcia MD [address] [place] [address] PCP - General INTERNAL MEDICINE 04/09/16 Guy Su MD [address] [place] [address] [employer] Superintendent CARDIOVASCULAR DISEASE 04/09/16 10/13/24 Dionisio Puga MD [address] [place] [address] Consulting Physician INTERVENTIONAL CARDIOLOGY 02/15/19 10/13/24 Sb Gil APRN [address] [place] [address] Nurse Practitioner NURSE PRACTITIONER 02/15/19 10/13/24 Ban Dickerson MD [address] [place] [address] [employer] CARDIOVASCULAR DISEASE 10/14/24 documented as of this encounter
[2025-01-31 13:58] LABS: Alanine Aminotransferase 25 U/L (6-35); Albumin Level 4.2 g/dL (3.5-5.1); Alkaline Phosphatase 79 U/L (38-126); Anion Gap 6 mmol/L (4-12); Aspartate Amino Transferase 32 U/L (14-36); Bilirubin,Total 0.6 mg/dL (0.2-1.3); Blood Urea Nitrogen 23 mg/dL (7-17); CRP 0.9 mg/dL (<1.0); Calcium 9.8 mg/dL (8.4-10.2); Carbon Dioxide 30 mmol/L (22-30); Chloride 106 mmol/L (98-107); Estimated Glomerular Filt Rate > 60; Glucose 113 mg/dL (65-110); Magnesium 1.9 mg/dL (1.6-2.3); Osmolality Calculated 298 mOsm/kg (285-295); Potassium 4.2 mmol/L (3.4-5.0); Sodium 142 mmol/L (137-145); Total Protein 6.4 g/dL (6.3-8.2)
== END 2025-01-31 13:17 | disposition home or self-care (01) ==
LOC: CHSLAB 13:18
PROVIDERS: PCP Internal Medicine; Visit Provider Internal Medicine
DX: R19.7 Diarrhea, unspecified (principal)
CPT/HCPCS: 36415; 80053; 83735; 85027; 86140